=== PATIENT | male | born 1960 | race Caucasian/White ===

== ENCOUNTER 2023-03-18 07:12 | Outpatient (REF) | payer OTHER, SELFPAY | END 2023-03-18 07:13 | disposition home or self-care (01) | LOC: HO.WFDLDS 07:12 | PROVIDERS: Visit Provider Nurse Practitioner Family | DX: Z00.00 Encounter for general adult medical examination without abnormal findings (principal); M11.20 Other chondrocalcinosis, unspecified site; F10.10 Alcohol abuse, uncomplicated; I10 Essential (primary) hypertension; Z87.39 Personal history of other diseases of the musculoskeletal system and connective tissue; Z12.5 Encounter for screening for malignant neoplasm of prostate | CPT/HCPCS: 36415; 80053; 80061; 81001; 82043; 82607; 82728; 82746; 83540; 83735; 84153; 84207; 84443; 84550; 85025 ==

== ENCOUNTER 2023-03-30 08:51 | Outpatient (AMB) | payer OTHER, SELFPAY ==
[2023-03-30 08:55] VITALS: BP 122/80; PULSE 71; O2SAT 97; BMI 36.4
--- NOTE | 2023-03-30 08:55 | A.OFFPC_ITS ---
Vital Signs 03/30/23 08:55 Height 5 ft 7 in Weight 232 lb 8 oz BMI 36.4 BP 122/80 Blood Pressure Location Rt brachial Position Sitting Pulse 71 Pulse Source Pulse Oximeter Pulse Oximetry (%) 97 Oxygen Delivery Method Room Air Intake Visit Reasons: Extended exam with f/u labs and health maintenance Intake Note: Patient is here today for follow up exam and follow up labs. Patient states he is having gout pain in right knee and right ankle. Allergies No Known Allergies Allergy (Verified 03/30/23 08:57) Medication List - Last Reconciled 03/30/23 by Terrance Hollis MD amlodipine 10 mg PO DAILY lisinopril 10 mg PO DAILY 90 days metoprolol succinate ER 25 mg PO DAILY mirtazapine 15 mg PO BEDTIME 30 days naproxen 500 mg PO BID omeprazole 20 mg PO DAILY prednisone 20 mg PO BID [stool softener and stimulant PO] trazodone 150 mg (1.5 x 100 mg) PO BEDTIME 30 days Tobacco use date assessed: 03/30/23 Dental Screening Dental Screen Date: 03/30/23 Did you have a dental visit in the last 12 months?: Yes Did you have a dental problem in the last 6 months where you did not have access to dental care?: No Was dental information given to patient?: No HPI Extended exam with f/u labs and health maintenance HPI Details 62 y/o male presents for an extended exam with f/u labs and health maintenance. Labs were drawn 03/18/23. Reviewed labs with pt. Elevated fasting glucose of 108. Uric acid elevated at 11.8 - was found to have pseudogout. He has been using naproxen for relief twice a day. Elevated liver enzymes - AST 57 and ALT 69. Triglycerides 145. TC 208. LDL 133. HDL 46. He continues to drink every other day. He drinks about a pint of vodka. Desire heard - he states he had a myocardial perfusion done less than a year ago and work-up was fine. [facility] Medical History Gout High blood pressure Family History Sister Substance abuse Social History Housing: Apartment Patient Tobacco Use Status: Former Tobacco user Cigarettes Per Day: 20 Years Smoked: 15 e-Cigarette/Vaping Use: Never Used service: No Current occupational status: disabled Cognitive needs: No Hearing needs: No Vision needs: No Review of Systems Const Denies chills, Denies fatigue, Denies fever(s), Denies headache(s) and Denies weakness Eyes Denies change in vision ENT Denies dizziness, Denies headache(s), Denies hearing loss, Denies nasal congestion, Denies sinus pain, Denies sinus pressure and Denies sore throat Card Denies chest pain, Denies lightheadedness, Denies dyspnea and Denies other (palpitations) Resp Denies cough, Denies dyspnea and Denies wheezing GI Denies abdominal pain, Denies melena, Denies hematochezia, Denies change in b owel habits, Denies dyspepsia and Denies nausea Denies hematuria and Denies dysuria Musc Denies abnormal gait, Denies myalgias, Denies arthralgias, Denies numbness and Denies tingling Skin/Breast Denies rash, Denies unusual bruising and Denies wounds Neuro Denies abnormal gait, Denies dizziness, Denies headache(s), Denies memory loss, Denies numbness, Denies Sensory deficit (Neuro), Denies tingling and Denies weakness Psych Denies anxiety, Denies depression and Denies memory loss Endo Denies cold intolerance, Denies fatigue, Denies heat intolerance, Denies polydipsia and Denies polyuria Gigi/Lymph Denies easy bleeding and Denies easy bruising Aller/Immun Denies wheezing Physical exam (Primary Care) Vital Signs: Last Vital Signs Pulse 71 03/30/23 08:55 BP 122/80 03/30/23 08:55 Pulse Ox 97 03/30/23 08:55 Oxygen Delivery Method Room Air 03/30/23 08:55 BMI result Body Mass Index 36.4 Tobacco/Smoking Status: Tobacco use Status Tobacco use date assessed 03/30/23 03/30/23 09:02 Patient Tobacco Use Status Former Tobacco user 03/30/23 08:57 e-Cigarette/Vaping Use Never Used 03/30/23 08:57 Const General: no acute distress, well developed, alert and awake Nutritional Appearance: well nourished Orientation/consciousness: patient oriented x3 [facility] Head: Yes normocephalic and Yes atraumatic Ears: hearing grossly normal bilaterally and TM's normal bilaterally General nose exam: Normal external nose present and Normal nares present Mouth: Normal oral and palatal mucosa present and moist mucous membranes Teeth and gingiva: dentition normal Throat: Yes posterior oropharynx normal Eyes General: appearance normal, both eyes and all related structures Pupils: Equal, round and reactive pupils present and Pupil accommodation reflex normal EOM: EOMs intact bilaterally Neck Neck: Yes normal visual inspection, Yes no lymphadenopathy and Yes trachea midline Thyroid: Thyroid normal Carotids: no bruits Lymphatic: no lymphadenopathy noted Chest Chest palpation & inspection: normal inspection of the chest Resp Effort & Inspection: normal respiratory effort Auscultation: clear to auscultation bilaterally Cardio Rate: regular rate Rhythm: abnormal rhythm (Bigeminy ) Heart sounds: S1 normal heart sound present, S2 normal heart sound present, no gallops, no murmurs and no rubs Bruits: no abdominal aortic bruits and no carotid bruits GI Palpation (GI): No Abdominal aortic bruit present, Soft to palpation, nontender, No hepatosplenomegaly present and No Rebound tenderness present Auscultation: normal bowel sounds General: Yes no CVA tenderness Back/Spine/Pelvis Back: no CVA tenderness Cervical Spine: cervical ROM normal and No Cervical spine tenderness Thoracic/Lumbar Spine: thoraco-lumbar ROM normal, No pain with thoraco-lumbar ROM, No thoracic spinal tenderness and No lumbar spinal tenderness Skin Lesions: no lesions Rashes: no rashes Trauma: no lacerations or abrasions Wounds: no wounds Nails: normal Neuro General: patient oriented x3 Cranial nerves: Yes Equal, round and reactive pupils present Cognition (Neuro): normal cognition Gait exam (Neuro): Normal gait present Motor exam (neuro): 5/5 motor strength present throughout Sensory Exam: No Sensory deficit (Neuro) Deep tendon reflexes (DTR's): Right patellar reflex intensity grade: 2+ and Left patellar reflex intensity grade: 2+ Extrem General: Yes normal to inspection and No edema Psych Appearance: grossly normal Affect: normal affect Attitude: cooperative Thought process: Normal thought process present Assessment and Plan Assessment & Plan (1) Elevated liver enzymes: Code(s): R74.8 - Abnormal levels of other serum enzymes Plan: Actively drinking. He also notes that he has a history of treated hepatitis-C. He also notes that he has a history of some cirrhosis. He will work on weaning down and stopping alcohol intake Will recheck liver enzymes in 6 weeks. Will discuss liver ultrasound (2) Elevated fasting glucose: Code(s): R73.01 - Impaired fasting glucose Plan: Mildly elevated fasting glucose Will follow-up with next lab draw (3) Abnormal heart rhythm: Code(s): I49.9 - Cardiac arrhythmia, unspecified Plan: Possible bigeminy or frequent PACs He will get a baseline EKG at the beginning of his next visit however, he notes that he has had a workup which included nuclear perfusion imaging only a year ago and was told that this imaging was fine. Arrhythmia likely secondary to his alcohol use. He is asymptomatic today. (4) Hypercholesterolemia: Code(s): E78.00 - Pure hypercholesterolemia, unspecified Plan: Mildly elevated LDL Encouraged weight loss and a diet lower in saturated fats and cholesterol Encouraged alcohol cessation (5) Pseudogout: Code(s): M11.20 - Other chondrocalcinosis, unspecified site Plan: Patient notes a history of pseudogout. However his uric acid level is 11.7. Starting him on a low dose of allopurinol Will follow-up at his next visit (6) Screening for colon cancer: Code(s): Z12.11 - Encounter for screening for malignant neoplasm of colon Plan: He thinks he will be due for colonoscopy in about a year. Request records (7) Alcohol use disorder: Code(s): F10.90 - Alcohol use, unspecified, uncomplicated Plan: Ongoing alcohol use disorder I again offered addiction medicine referral but patient still wants to try to wean down and stop on his own. Will give him small prescription of clonidine and recommended he wean carefully Will follow (8) Screening for prostate cancer: Code(s): Z12.5 - Encounter for screening for malignant neoplasm of prostate Plan: PSA was within normal limits (9) Adult general medical exam: Code(s): Z00.00 - Encounter for general adult medical examination without abnormal findings Plan: 62-year-old male presents for an extended exam Stable today Medications: New clonidine HCl 0.1 mg PO BID 30 days PRN 60 tabs 1RF alcohol withdrawal symptoms allopurinol 100 mg PO BID 30 days 60 tabs 1RF prednisone 40 mg (2 x 20 mg) PO DAILY 4 days 8 tabs 0RF Coding Level of Care Code Est Pt Level 4 (74438) Diagnoses Elevated liver enzymes R74.8 Elevated fasting glucose R73.01 Abnormal heart rhythm I49.9 Hypercholesterolemia E78.00 Pseudogout M11.20 Screening for colon cancer Z12.11 Alcohol use disorder F10.90 Screening for prostate cancer Z12.5 Adult general medical exam Z00.00
== END 2023-03-30 09:45 | disposition home or self-care (01) ==
PROVIDERS: Visit Provider Family Medicine
DX: R74.8 Abnormal levels of other serum enzymes (principal); R73.01 Impaired fasting glucose; I49.9 Cardiac arrhythmia, unspecified; E78.00 Pure hypercholesterolemia, unspecified; M11.20 Other chondrocalcinosis, unspecified site; Z12.11 Encounter for screening for malignant neoplasm of colon; F10.90 Alcohol use, unspecified, uncomplicated; Z12.5 Encounter for screening for malignant neoplasm of prostate; Z00.00 Encounter for general adult medical examination without abnormal findings
CPT/HCPCS: 99214

== ENCOUNTER 2023-05-13 08:23 | Outpatient (AMB) | payer OTHER, SELFPAY ==
--- NOTE | 2023-05-13 08:30 | A.OFFPC_ITS ---
Vital Signs 05/13/23 08:31 Height 5 ft 7 in Weight 229 lb 6 oz BMI 35.9 BP 142/82 H Blood Pressure Location Lt brachial Position Sitting Respiration 12 Pulse 65 Pulse Source Pulse Oximeter Temp 97.9 F Temp Source Temporal Artery Scan Pulse Oximetry (%) 97 Oxygen Delivery Method Room Air Intake Visit Reasons: f/u elevated liver enzymes and uric acid levels Intake Note: Patient states that he has a fluid built up in his elbow and shoulder and believes it is gout. Mail Delivery Supervisor Required: No Accompanied by: Self / Same As Patient Allergies bee sting Allergy (Intermediate, Uncoded 05/13/23 08:36) Swelling Tobacco use date assessed: 03/30/23 Dental Screening Dental Screen Date: 05/13/23 Did you have a dental visit in the last 12 months?: Yes Did you have a dental problem in the last 6 months where you did not have access to dental care?: No Was dental information given to patient?: Patient has dentist HPI f/u elevated liver enzymes and uric acid levels HPI Details Patient was scheduled to follow-up elevated liver enzymes and uric acid levels. He has not gotten his labs done. At his last visit we discussed starting him on allopurinol. He also has an abnormal rhythm which he has been told about for many years. Possible bigeminy or frequent PACs. Drinks daily and this may be a direct cause or contributor of his arrhythmia. Patient can stay for a baseline EKG today. Blood pressure is mildly elevated above goal of less than 140/90. He takes lisinopril 10 mg daily, metoprolol ER 25 mg daily and also has clonidine 0.1 mg twice a day. Elevated liver enzymes and history of treated hep C with some cirrhosis. Has not gotten his labs drawn yet. Still drinking daily. Had given him prednisone and allopurinol for his gout - he reports ongoing joint pain and reports shoulder pain when he sleeps. [facility] Medical History (Updated 05/13/23 @ 09:20 by Terrance Hollis MD) Gout High blood pressure Surgical History (Updated 05/13/23 @ 08:39 by Charlette Smith MA) No pertinent past surgical history Family History Sister Substance abuse Brother Cardiovascular disorder Social History (Reviewed 05/13/23 @ 08:39 by FRED Martini Housing: Apartment Patient Tobacco Use Status: Former Tobacco user Cigarettes Per Day: 20 Years Smoked: 15 e-Cigarette/Vaping Use: Never Used service: No Current occupational status: disabled Cognitive needs: No Hearing needs: No Vision needs: No Review of Systems Const Denies chills, Denies fatigue, Denies fever(s), Denies headache(s) and Denies weakness ENT Denies dizziness and Denies headache(s) Card Denies dyspnea Resp Denies cough, Denies dyspnea, Denies wheezing and Denies other (shortness of breath) Musc Denies numbness and Denies tingling Neuro Denies dizziness, Denies headache(s), Denies numbness, Denies tingling and Denies weakness Psych Denies anxiety and Denies depression Endo Denies fatigue Aller/Immun Denies wheezing Physical exam (Primary Care) Vital Signs: Last Vital Signs Temp 97.9 F 05/13/23 08:31 Pulse 65 05/13/23 08:31 Resp 12 05/13/23 08:31 BP 142/82 H 05/13/23 08:31 Pulse Ox 97 05/13/23 08:31 Oxygen Delivery Method Room Air 05/13/23 08:31 BMI result Body Mass Index 35.9 Tobacco/Smoking Status: Tobacco use Status Tobacco use date assessed 03/30/23 05/13/23 08:33 Patient Tobacco Use Status Former Tobacco user 05/13/23 08:33 e-Cigarette/Vaping Use Never Used 05/13/23 08:33 Const General: well developed; No acute distress Nutritional Appearance: obese Orientation/consciousness: patient oriented x3 [facility] Head: Yes normocephalic and Yes atraumatic Eyes General: appearance normal, both eyes and all related structures Pupils: Equal, round and reactive pupils present EOM: EOMs intact bilaterally Resp Effort & Inspection: normal respiratory effort Neuro General: patient oriented x3 and gait normal Cranial nerves: Yes Equal, round and reactive pupils present Psych Affect: normal affect Assessment and Plan Assessment & Plan (1) High blood pressure: Code(s): I10 - Essential (primary) hypertension Plan: Blood pressure mildly elevated above goal of less than 140/90 For now, he will continue lisinopril and metoprolol and amlodipine. Likely secondary to discomfort and also weaning alcohol If still elevated at his next visit, will increase his lisinopril (2) History of gout: Code(s): Z87.39 - Personal history of other diseases of the musculoskeletal system and connective tissue Plan: Left shoulder and elbow pain Uric acid levels have been high. Will check an x-ray Prednisone had helped at his last visit so will give him a taper Continue allopurinol. We will follow-up on his uric acid levels which he had drawn today. (3) Elevated liver enzymes: Code(s): R74.8 - Abnormal levels of other serum enzymes Plan: History of elevated liver enzymes and alcohol abuse with cirrhosis. History of hepatitis C which was treated. Checking liver enzymes today. He is working on weaning down his alcohol use (4) Alcohol use disorder: Code(s): F10.90 - Alcohol use, unspecified, uncomplicated Plan: Has decreased his alcohol intake and is drinking about 3 times a week. Clonidine is helping Continue to wean down alcohol use. (5) Abnormal heart rhythm: Code(s): I49.9 - Cardiac arrhythmia, unspecified Plan: Baseline EKG shows a sinus rhythm with frequent PVCs; ventricular bigeminy pattern. Normal axis, no hypertrophy and no ST-T-wave changes. Patient is asymptomatic Will continue to monitor (6) Shoulder pain: Code(s): M25.519 - Pain in unspecified shoulder Plan: Possibly secondary to gouty arthritis or osteoarthritis Checking x-rays Prednisone taper will help Orders: Orders XR elbow LT 2V Today M25.522 - Pain in left elbow XR shoulder LT min 2V Today M25.519 - Pain in unspecified shoulder Medications: New prednisone 4 tabs daily for 4 days, 3 tabs daily for 2 days, 2 tabs daily for 2 days, 1 tab daily for 2 days PO daily; 28 tabs 0RF 10 days Coding Level of Care Code Est Pt Level 4 (39320) Diagnoses High blood pressure I10 History of gout Z87.39 Elevated liver enzymes R74.8 Alcohol use disorder F10.90 Abnormal heart rhythm I49.9 Shoulder pain M25.519
[2023-05-13 08:31] VITALS: BP 142/82; PULSE 65; RESP 12; TEMP 36.6; O2SAT 97; BMI 35.9
== END 2023-05-13 09:26 | disposition home or self-care (01) ==
PROVIDERS: PCP Family Medicine; Visit Provider Family Medicine
DX: I10 Essential (primary) hypertension (principal); Z87.39 Personal history of other diseases of the musculoskeletal system and connective tissue; R74.8 Abnormal levels of other serum enzymes; F10.90 Alcohol use, unspecified, uncomplicated; I49.9 Cardiac arrhythmia, unspecified; M25.519 Pain in unspecified shoulder
CPT/HCPCS: 99214

== ENCOUNTER 2023-05-13 08:52 | Outpatient (REF) | payer OTHER, SELFPAY ==
[2023-05-13 12:27] LABS: Alanine Aminotransferase 66 U/L (0-40); Albumin Level 4.5 g/dL (3.5-5.0); Alkaline Phosphatase 81 U/L (39-117); Anion Gap 14 (12-20); Aspartate Amino Transferase 64 U/L (5-37); Bilirubin Total 0.6 mg/dL (0.0-1.0); Blood Urea Nitrogen 18 mg/dL (9-16); Carbon Dioxide 22 mmol/L (22-29); Chloride 105 mmol/L (96-108); Estimated Glomerular Filt Rate > 60; Glucose Fasting 105 mg/dL (60-99); Potassium 4.4 mmol/L (3.3-5.1); Sodium 137 mmol/L (135-145); Total Protein 7.5 g/dL (6.5-8.0); Uric Acid 6.7 mg/dL (3.4-7.0)
[2023-05-13 12:41] LABS: Appearance Urine Clear; Color Urine Yellow; Glucose Urine UA Negative (Negative); Leukocyte Esterase Urine Negative (Negative); Nitrite Urine Negative (Negative); PH 5.5 (5.0-9.0); Specific Gravity - Urine 1.025 (1.005-1.025); UMIC TRIGGER UA YES; Urine Blood Trace (Negative); Urine Ketones Negative (Negative); Urine Protein Negative (Neg-Trace)
[2023-05-13 12:44] LABS: Bacteria Urine None Seen (None Seen); Hyaline Casts Urine 0-2 /LPF (0-2); RBC Urine 0-2 /HPF (0-2); Squamous Epithelial Cell Urine 0-2 /HPF (0-2); WBC Urine 0-5 /HPF (0-5)
== END 2023-05-13 08:53 | disposition home or self-care (01) ==
LOC: HO.WFDLDS 08:52
PROVIDERS: Visit Provider Family Medicine
DX: Z00.00 Encounter for general adult medical examination without abnormal findings (principal); R74.8 Abnormal levels of other serum enzymes; E79.0 Hyperuricemia without signs of inflammatory arthritis and tophaceous disease
CPT/HCPCS: 36415; 80053; 81001; 84550

== ENCOUNTER 2023-06-11 14:19 | Outpatient (AMB) | payer OTHER, SELFPAY ==
--- NOTE | 2023-06-11 14:06 | MHC.PC.OV ---
Intake Visit Reasons: f/u labs [phone] Intake Note: Patient reports he will go over labs and discuss shoulder pain at this telehealth visit. Customer Operations Intern Required: No Accompanied by: Self / Same As Patient Allergies bee sting Allergy (Intermediate, Uncoded 05/13/23 08:36) Swelling Tobacco use date assessed: 03/30/23 HPI f/u labs [phone] HPI Details Telemedicine?encounter?to?discuss liver?enzymes?and?uric?acid?levels?as?well?as?recent?gout?flare?up?and?elbow?bursitis. Patient?had?pain?at?left?elbow?and?shoulder?and?history?of?gout.??Uric?acid?levels?had?been?up?around?.8. Gave?him?a?script?for?prednisone?taper?and?also?allopurinol. Patient?notes?that?joint?pains?an?elbow?bursitis?both?improved?with?prednisone?taper. He?has?been?taking?allopurinol?without?any?problems?and?has?had?no?further?flare-ups. He?also?had?elevated?liver?enzymes?and?these?were?repeated?on?April?.? No?significant?change?in?his?liver?enzymes?between?March?and?late?April. ?He?has?stopped?drinking?since?then. He?also?has?a?history?of?hepatitis?C?infection?which?was?treated. [facility] Medical History (Updated 06/11/23 @ 16:09 by Terrance Hollis MD) Gout High blood pressure Surgical History (Updated 05/13/23 @ 08:39 by Charlette Smith MA) No pertinent past surgical history Family History Sister Substance abuse Brother Cardiovascular disorder Social History Housing: Apartment Patient Tobacco Use Status: Former Tobacco user Cigarettes Per Day: 20 Years Smoked: 15 e-Cigarette/Vaping Use: Never Used service: No Current occupational status: disabled Cognitive needs: No Hearing needs: No Vision needs: No Review of Systems Const Denies chills, Denies fatigue, Denies fever(s), Denies headache(s) and Denies weakness ENT Denies dizziness and Denies headache(s) Card Denies chest pain, Denies lightheadedness, Denies dyspnea and Denies other (Palpitations) Resp Denies cough, Denies dyspnea, Denies wheezing and Denies other ( shortness of breath) Musc Denies numbness and Denies tingling Neuro Denies dizziness, Denies headache(s), Denies numbness, Denies tingling, Denies paresthesias and Denies weakness Psych Denies anxiety and Denies depression Endo Denies fatigue Aller/Immun Denies wheezing Physical exam (Primary Care) Tobacco/Smoking Status: Tobacco use Status Tobacco use date assessed 03/30/23 06/11/23 14:09 Patient Tobacco Use Status Former Tobacco user 06/11/23 14:09 e-Cigarette/Vaping Use Never Used 06/11/23 14:09 Const Other: Telemedicine?encounter.??Audio?only.??No?exam. Telehealth Telehealth Location of provider rendering services: practice address Location of patient: address on file Patient Identification confirmed using: Name, : Yes Telehealth method: voice only Patient verbally consented to treatment: Yes Patient verbally consented to billing insurance company: Yes Patient informed of any privacy concerns related to visit: Yes Minutes spent on Phone/Video with Pt.: 6 Assessment and Plan Assessment & Plan (1) History of gout: Code(s): Z87.39 - Personal history of other diseases of the musculoskeletal system and connective tissue Plan: History?of?gout?and?left?shoulder?and?elbow?pain. No?flare-ups?since?starting?allopurinol?and?this?was?greatly?improved?initially?with?a?prednisone?taper. Uric?acid?level?dropped?from?11.8?down?to?6.7. Continue?allopurinol.??We?can?follow?uric?acid?level?as?well?as?clinically. Avoid?alcohol. (2) ETOH abuse: Code(s): F10.10 - Alcohol abuse, uncomplicated Plan: Patient?notes?that?he?is?no?longer?drinking. Encouraged?him?to?stay?connected?with?good?support;?friends,?family?and?AA?meetings (3) Elbow pain, left: Code(s): M25.522 - Pain in left elbow Plan: Left?elbow?and?left?shoulder?pain.??Had?bursitis?which?improved?with?prednisone.??Likely?has?had?gout?as?well?and?these?were?improved?with?prednisone. No?flare-ups?since?stopping?alcohol?use?and?using?allopurinol. Continue?allopurinol (4) Left shoulder pain: Code(s): M25.512 - Pain in left shoulder Plan: As?above (5) Elevated liver enzymes: Code(s): R74.8 - Abnormal levels of other serum enzymes Plan: Elevated?liver?enzymes,?likely?due?to?alcohol?abuse.??Also?has?had?a?history?of?treated?hepatitis-C?and?no?longer?infected. Repeat?liver?enzymes?shows?no?significant?improvement. Check?ultrasound Orders: Orders Comprehensive Met. Panel Today R74.8 - Abnormal levels of other serum enzymes Uric Acid Today Z87.39 - Personal history of other diseases of the musculoskeletal system and connective tissue US abdomen vail w elastography Today R74.8 - Abnormal levels of other serum enzymes Coding Level of Care Code Tele Est Pt Level 2 (02052) Diagnoses History of gout Z87.39 ETOH abuse F10.10 Elbow pain, left M25.522 Left shoulder pain M25.512 Elevated liver enzymes R74.8
== END 2023-06-11 16:50 ==
LOC: HO.HMGFM 14:19
PROVIDERS: PCP Family Medicine; Visit Provider Family Medicine
DX: Z87.39 Personal history of other diseases of the musculoskeletal system and connective tissue (principal); F10.10 Alcohol abuse, uncomplicated; M25.522 Pain in left elbow; M25.512 Pain in left shoulder; R74.8 Abnormal levels of other serum enzymes
CPT/HCPCS: 99212

== ENCOUNTER 2023-08-26 08:39 | Outpatient (AMB) | payer OTHER, SELFPAY ==
--- NOTE | 2023-08-26 08:44 | A.OFFPC_ITS ---
Vital Signs 08/26/23 08:46 Height 5 ft 7 in Weight 234 lb 8 oz BMI 36.7 BP 132/72 Blood Pressure Location Lt brachial Position Sitting Respiration 13 Pulse 76 Pulse Source Pulse Oximeter Pulse Oximetry (%) 96 Oxygen Delivery Method Room Air Intake Visit Reasons: Liver F/U Intake Note: Patient is here to follow up regarding his liver enzymes. Patient states he had labs done the day of his last visit and was not aware he needed his labs done before todays appointment. Patient has his ultrasound scheduled for September 20, 2023 at 8:00AM. Patient reports he is drinking again 0.5-1 pint per day. Patient is inquiring about a shot that helps to curb cravings. Patient reports he was contacted regarding a colonoscopy and he was wondering if he was able to have an endoscopy completed at the same time. Patient reports he has this previously done. 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 Also f/u bigeminy rhythm. No recent labs to review for his liver enzymes. The ones drawn on May 13 had already been reviewed. Patient has his ultrasound scheduled for September 20, 2023 at 8:00AM. PFSH Medical History Gout High blood pressure Surgical History No pertinent past surgical history Family History Sister Substance abuse Brother Cardiovascular disorder Other Alcohol abuse Social History (Updated 08/26/23 @ 08:55 by Magalie Loyola CMA) Household Members: Spouse and Significant Other Housing: Apartment Alcohol intake: current Alcohol intake frequency: other Comment: 0.5-1 pint daily Patient Tobacco Use Status: Former Tobacco user Cigarettes Per Day: 20 Years Smoked: 15 e-Cigarette/Vaping Use: Never Used Substance Use Type: Marijuana service: No Current occupational status: disabled Sexual orientation: Unable to collect Gender identity: Unable to collect Cognitive needs: No Hearing needs: No Vision needs: No Questionnaire PHQ-9 Over the last 2 weeks, how often have you been bothered by any of the following problems? 1. Little interest or pleasure in doing things: several days 2. Feeling down, depressed, or hopeless: several days 3. Trouble falling or staying asleep, or sleeping too much: several days 4. Feeling tired or having little energy: several days 5. Poor appetite or overeating: not at all 6. Feeling bad about yourself - or that you are a failure or have let yourself or your family down: not at all 7. Trouble concentrating on things, such as reading the newspaper or watching television: several days 8. Moving or speaking so slowly that other people could have noticed. Or the opposite - being so fidgety or restless that you have been moving around a lot more than usual: not at all 9. Thoughts that you would be better off or of hurting yourself in some way: not at all Total score: 5 Depression Screening Interpretation: Negative Depression Screening Done: Yes 09277 - PHQ-9 Billing: Yes Source: Developed by Drs. Mark Brink, Deborah Block, Gordy Valencia and colleagues, with an educational soledad from [employer]. Thrive Questionnaire Date Thrive assessed: 08/26/23 I am a: Patient What is your living situation today?: I have a steady place to live Within the past 12 months, did the food you bought not last and you didn't have the money to get more?: Never true Within the past 12 months, did you worry whether your food would run out before you got money to buy more?: Never true Do you have trouble paying for medicines?: No Do you have trouble getting transportation to medical appointments?: No Do you have trouble paying your heating and electricity bill?: No Do you have trouble taking care of your child, family member or friend?: No Do you have trouble with day-to-day activities such as bathing, preparing meals, shopping, managing finances, etc.?: No Are you currently unemployed and looking for a job?: No Are you interested in more education?: No Please select the resources that you would like help with: None Currently or been in a relationship where the following occur: no concerns reported AUDIT C Alcohol Use Questionnaire (AUDIT-C) 1. How often do you have a drink containing alcohol?: 4 or more times a week 2. How many drinks containing alcohol do you have on a typical day when you are drinking?: 3 or 4 (0.5-1 pint daily ) Total Score: 5 NUNU-7 AMB Questionnaire NUNU-7 Date NUNU - 7 assessed: 08/26/23 Feeling nervous, anxious, or on edge: 0 = Not at all Not being able to stop or control worryin = Not at all Worrying too much about different things: 0 = Not at all Trouble relaxin = Not at all Being so restless that it is hard to sit still: 0 = Not at all Becoming easily annoyed or irritable: 0 = Not at all Feeling afraid as if something awful might happen: 0 = Not at all Total NUNU-7 score (0-4 normal; 5-9 mild; 10-14 moderate; 15-21 severe): 0 Source: Developed by Drs. Mark Brink, Deborah Block, Gordy Valencia and colleagues, with an educational soledad from [employer]. NUNU-7 Assessment Billing NUNU-7 Assessment Tool: NUNU-7 Assessment 29196 Review of Systems Const Denies chills, Denies fatigue, Denies fever(s), Denies headache(s) and Denies weakness ENT Denies dizziness and Denies headache(s) Card Denies dyspnea Resp Denies cough, Denies dyspnea, Denies wheezing and Denies other (shortness of breath) Musc Denies numbness and Denies tingling Neuro Denies dizziness, Denies headache(s), Denies numbness, Denies tingling and Denies weakness Psych Denies anxiety and Denies depression Endo Denies fatigue Aller/Immun Denies wheezing Physical exam (Primary Care) Vital Signs: Last Vital Signs Pulse 76 08/26/23 08:46 Resp 13 08/26/23 08:46 BP 132/72 08/26/23 08:46 Pulse Ox 96 08/26/23 08:46 Oxygen Delivery Method Room Air 08/26/23 08:46 BMI result Body Mass Index 36.7 Tobacco/Smoking Status: Tobacco use Status Tobacco use date assessed 03/30/23 08/26/23 08:45 Patient Tobacco Use Status Former Tobacco user 08/26/23 08:55 e-Cigarette/Vaping Use Never Used 08/26/23 08:55 PHQ-9: PHQ-9 Score PHQ-9: Total score 5 08/26/23 09:22 Depression Screening Interpretation: Negative Thrive Assessment: Date of Thrive Assessment Date Thrive assessed 08/26/23 08/26/23 09:00 Currently or been in a relationship where the following occur: no concerns reported Const General: well developed; No acute distress Nutritional Appearance: well nourished Orientation/consciousness: patient oriented x3 HENMT Head: Yes normocephalic and Yes atraumatic Eyes General: appearance normal, both eyes and all related structures Pupils: Equal, round and reactive pupils present EOM: EOMs intact bilaterally Resp Effort & Inspection: normal respiratory effort Neuro General: patient oriented x3 and gait normal Cranial nerves: Yes Equal, round and reactive pupils present Psych Affect: normal affect Assessment and Plan Assessment & Plan (1) Alcohol use disorder: Code(s): F10.90 - Alcohol use, unspecified, uncomplicated Plan: Patient?has?resumed?drinking. Agrees?to?a?referral?at?the?[facility];?addiction?medicine. Also?encouraged?resuming?AA?meetings (2) Elevated liver enzymes: Code(s): R74.8 - Abnormal levels of other serum enzymes Plan: Has?had?elevated?liver?enzymes?and?I?had?ordered?a?liver?ultrasound.??This?is?sc heduled?for?September He?will?get?liver?enzymes?repeated?today. As?above,?encouraged?alcohol?abstinence?and?referred?him?to?addiction?medicine (3) Abnormal heart rhythm: Code(s): I49.9 - Cardiac arrhythmia, unspecified Plan: Stable Encouraged?alcohol?cessation Orders: Referrals Addiction Medicine Referral F10.90 - Alcohol use, unspecified, uncomplicated Coding Level of Care Code Est Pt Level 4 (85013) Diagnoses Alcohol use disorder F10.90 Elevated liver enzymes R74.8 Abnormal heart rhythm I49.9 Additional Codes NUNU-7 Assessment Billing - NUNU-7 Assessment Tool: NUNU-7 Assessment [id number] ([id number])
[2023-08-26 08:46] VITALS: BP 132/72; PULSE 76; RESP 13; O2SAT 96; BMI 36.7
== END 2023-08-26 09:40 | disposition home or self-care (01) ==
PROVIDERS: PCP Family Medicine; Visit Provider Family Medicine
DX: R74.8 Abnormal levels of other serum enzymes (principal); F10.90 Alcohol use, unspecified, uncomplicated; I49.9 Cardiac arrhythmia, unspecified
CPT/HCPCS: 99214

== ENCOUNTER 2023-08-26 09:41 | Outpatient (REF) | payer OTHER, SELFPAY ==
[2023-08-26 12:06] LABS: Alanine Aminotransferase 101 U/L (0-40); Albumin Level 4.5 g/dL (3.5-5.0); Alkaline Phosphatase 84 U/L (39-117); Anion Gap 15 (12-20); Aspartate Amino Transferase 118 U/L (5-37); Bilirubin Total 0.7 mg/dL (0.0-1.0); Blood Urea Nitrogen 20 mg/dL (9-16); Calcium 9.8 mg/dL (8.4-10.2); Carbon Dioxide 22 mmol/L (22-29); Chloride 104 mmol/L (96-108); Estimated Glomerular Filt Rate > 60; Glucose Random 105 mg/dL (60-115); Potassium 4.1 mmol/L (3.3-5.1); Sodium 137 mmol/L (135-145); Total Protein 7.8 g/dL (6.5-8.0); Uric Acid 6.6 mg/dL (3.4-7.0)
== END 2023-08-26 09:42 | disposition home or self-care (01) ==
LOC: HO.WFDLDS 09:41
PROVIDERS: Visit Provider Family Medicine
DX: R74.8 Abnormal levels of other serum enzymes (principal); Z87.39 Personal history of other diseases of the musculoskeletal system and connective tissue
CPT/HCPCS: 36415; 80053; 84550

== ENCOUNTER 2023-09-20 07:51 | Outpatient (REF) | payer OTHER, SELFPAY ==
--- NOTE | ~2023-09-20 | US_ITS ---
EXAMINATION: US ABDOMEN LIMITED WITH LIVER ELASTOGRAPHY CLINICAL INFORMATION: Abnormal serum enzymes. COMPARISON: None available. TECHNIQUE: Real-time imaging of the abdominal viscera. Noninvasive ultrasound liver fibrosis assessment is performed using Pallavi ElastPQ point quantification shear wave elastography (2D-SWE) with a C5-2 MHz transducer. Multiple elastography samples are obtained. FINDINGS: PANCREAS: Normal. The visualized pancreatic head and body are normal in appearance. The remainder of the pancreas is obscured from visualization by the overlying bowel gas. LIVER: The liver demonstrates normal contour and increased echogenicity. No focal lesion or intrahepatic biliary duct dilatation. The right lobe measures 18.7 cm in length. The left lobe measures 12.3 cm in length. Portal flow is towards the liver (hepatopetal). Shear wave liver elastography median stiffness is 1.90 m/s (reference: normal median stiffness is 1.3 m/s or less). IQR/median stiffness to assess sampling precision is 0.07 (reference: good quality data set is IQR/median stiffness of 0.15 or less). GALLBLADDER: There are multiple gallstones. The gallbladder is physiologically distended without evidence of sludge, polyps, wall thickening or pericholecystic fluid. COMMON BILE DUCT: Normal in caliber measuring 0.6 cm in diameter. RIGHT KIDNEY: Normal. No hydronephrosis. No renal calculi or focal parenchymal lesions. The kidney measures 10.4 cm in maximum dimension. FREE FLUID: None. US/US abdomen vail w elastography IMPRESSION: 1. There is generalized increase in hepatic echotexture, consistent with fatty infiltration or hepatocellular disease. Please correlate clinically. No focal hepatic mass or intrahepatic biliary dilatation is seen. 2. There is hepatomegaly. 3. Liver elastography: Measurements are suggestive of compensated advanced chronic liver disease but need further test for confirmation. 4. Technically limited ultrasound examination of the pancreas. REFERENCE: Society of Radiologists in Ultrasound Liver Stiffness Thresholds (2020): LIVER STIFFNESS THRESHOLDS: *Liver Stiffness equal or less than 1.3 m/s: High probability of being normal. *Liver Stiffness less than 1.7 m/s: In the absence of other known clinical signs, rules out compensated advanced chronic liver disease. *Liver Stiffness 1.7-2.1 m/s: Suggestive of compensated advanced chronic liver disease but need further test for confirmation. *Liver Stiffness over 2.1 m/s: Rules in compensated advanced chronic liver disease. *Liver Stiffness over 2.4 m/s: Suggestive of clinically significant portal hypertension. QUALITY OF DATA SET: *IQR/Median value equal or less than 0.15 implies a quality data set. *IQR/Median value over 0.15 implies a poor quality data set. SIGNIFICANT CHANGE FROM PRIOR EXAM: Significant change if liver stiffness measurement is 10% or greater from prior exam. OTHER CONSIDERATIONS: The stage of liver fibrosis may be overestimated in the setting of acute hepatitis, liver inflammation, elevated liver function tests, hepatic vascular congestion, obstructive cholestasis, non-fasting state, and infiltrative diseases such as amyloidosis and lymphoma. In some patients with NAFLD, the liver stiffness thresholds for compensated advanced chronic liver disease may be lower. In causes other than viral hepatitis and NAFLD, liver stiffness thresholds are not well established.
== END 2023-09-20 07:52 | disposition home or self-care (01) ==
LOC: HO.US 07:51
PROVIDERS: PCP Family Medicine; Visit Provider Family Medicine
DX: R74.8 Abnormal levels of other serum enzymes (principal)
CPT/HCPCS: 76705; 76981

== ENCOUNTER 2023-12-07 08:32 | Outpatient (AMB) | payer OTHER, SELFPAY ==
--- NOTE | 2023-12-07 08:44 | MHC.PC.OV ---
Vital Signs 12/07/23 08:46 Height 5 ft 7 in Weight 234 lb BMI 36.6 BP 138/70 Blood Pressure Location Rt brachial Position Sitting Respiration 14 Pulse 68 Pulse Source Pulse Oximeter Pulse Oximetry (%) 98 Oxygen Delivery Method Room Air Intake Visit Reasons: Follow up labs Intake Note: Patient is here for a follow up. Patient reports he needs refills of the following medications: lisinopril amlodipine omeprazole mertazepine naproxen [employer] Consultant Required: No Accompanied by: Self / Same As Patient Allergies bee sting Allergy (Intermediate, Uncoded 12/07/23 08:52) Swelling Tobacco use date assessed: 12/07/23 Fall risk assessment: No Falls in past year Last assessed Fall Risk: 12/07/23 Dental Screening Dental Screen Date: 12/07/23 Did you have a dental visit in the last 12 months?: Yes Did you have a dental problem in the last 6 months where you did not have access to dental care?: No Was dental information given to patient?: Patient has dentist HPI Follow up labs HPI Details 63 y/o male presents to review elevated liver enzymes and liver ultrasound, Had resumed drinking but agreed to referral to addiction medicine. Labs were drawn 08/26/23. Reviewed labs with pt. Worsening liver enzymes - AST 118, ALT 101. Liver ultrasound 09/20/23 showed generalized increase in hepatic echotexture, consistent with fatty infiltration or hepatocellular disease. Hepatomegaly. Pt reports he continues to drink 3-4x a week. He has not visited the addiction medicine clinic yet. Has complaints of a rash on his arms and on his lips. [facility] Medical History Gout High blood pressure Surgical History No pertinent past surgical history Family History (Updated 12/07/23 @ 08:53 by Magalie Loyola CMA) Sister Substance abuse Mental health disorder Brother Cardiovascular disorder Mental health disorder Other Alcohol abuse Social History Household Members: Spouse and Significant Other Housing: Apartment Alcohol intake: current Alcohol intake frequency: other Comment: 0.5-1 pint daily Patient Tobacco Use Status: Former Tobacco user Cigarettes Per Day: 20 Years Smoked: 15 e-Cigarette/Vaping Use: Never Used Substance Use Type: Marijuana service: No Current occupational status: disabled Sexual orientation: Unable to collect Gender identity: Unable to collect Cognitive needs: No Hearing needs: No Vision needs: No Questionnaire PHQ-9 Over the last 2 weeks, how often have you been bothered by any of the following problems? 1. Little interest or pleasure in doing things: not at all 2. Feeling down, depressed, or hopeless: not at all 3. Trouble falling or staying asleep, or sleeping too much: not at all 4. Feeling tired or having little energy: several days 5. Poor appetite or overeating: not at all 6. Feeling bad about yourself - or that you are a failure or have let yourself or your family down: not at all 7. Trouble concentrating on things, such as reading the newspaper or watching television: not at all 8. Moving or speaking so slowly that other people could have noticed. Or the opposite - being so fidgety or restless that you have been moving around a lot more than usual: not at all 9. Thoughts that you would be better off or of hurting yourself in some way: not at all Total score: 1 Source: Developed by Drs. Mark Brink, Deborah Block, Gordy Valencia and colleagues, with an educational soledad from [employer] Thrive Questionnaire Date Thrive assessed: 08/26/23 AUDIT C Alcohol Use Questionnaire (AUDIT-C) 1. How often do you have a drink containing alcohol?: 4 or more times a week 2. How many drinks containing alcohol do you have on a typical day when you are drinking?: 1 or 2 3. How often do you have six or more drinks on one occasion?: Never Total Score: 4 NUNU-7 AMB Questionnaire NUNU-7 Date NUNU - 7 assessed: 12/07/23 Feeling nervous, anxious, or on edge: 0 = Not at all Not being able to stop or control worryin = Not at all Worrying too much about different things: 0 = Not at all Trouble relaxin = Not at all Being so restless that it is hard to sit still: 0 = Not at all Becoming easily annoyed or irritable: 0 = Not at all Feeling afraid as if something awful might happen: 0 = Not at all Total NUNU-7 score (0-4 normal; 5-9 mild; 10-14 moderate; 15-21 severe): 0 Source: Developed by Drs. Mark Brink, Deborah Block, Gordy Valencia and colleagues, with an educational soledad from [employer] ([employer] Review of Systems Const Denies chills, Denies fatigue, Denies fever(s), Denies headache(s) and Denies weakness ENT Denies dizziness and Denies headache(s) Card Denies chest pain, Denies lightheadedness, Denies dyspnea and Denies other (Palpitations) Resp Denies cough, Denies dyspnea, Denies wheezing and Denies other ( shortness of breath) Musc Denies numbness and Denies tingling Skin/Breast Reports rash Neuro Denies dizziness, Denies headache(s), Denies numbness, Denies tingling, Denies paresthesias and Denies weakness Psych Denies anxiety and Denies depression Endo Denies fatigue Aller/Immun Denies wheezing Physical exam (Primary Care) Vital Signs: Last Vital Signs Pulse 68 12/07/23 08:46 Resp 14 12/07/23 08:46 BP 138/70 12/07/23 08:46 Pulse Ox 98 12/07/23 08:46 Oxygen Delivery Method Room Air 12/07/23 08:46 BMI result Body Mass Index 36.6 Tobacco/Smoking Status: Tobacco use Status Tobacco use date assessed 12/07/23 12/07/23 08:53 Patient Tobacco Use Status Former Tobacco user 12/07/23 08:53 e-Cigarette/Vaping Use Never Used 12/07/23 08:53 PHQ-9: PHQ-9 Score PHQ-9: Total score 1 12/07/23 09:13 Thrive Assessment: Date of Thrive Assessment Date Thrive assessed 08/26/23 12/07/23 08:53 Const General: no acute distress and well developed Nutritional Appearance: well nourished Orientation/consciousness: patient oriented x3 HENMT Head: Yes normocephalic and Yes atraumatic Eyes General: appearance normal, both eyes and all related structures Pupils: Equal, round and reactive pupils present EOM: EOMs intact bilaterally Resp Effort & Inspection: normal respiratory effort Auscultation: clear to auscultation bilaterally Cardio Rate: regular rate Rhythm: regular rhythm Heart sounds: S1 normal heart sound present, S2 normal heart sound present, no gallops, no murmurs and no rubs Skin Other: Rash on arm, purple, orthogonal, raised spots Rash around his lips Neuro General: patient oriented x3 and gait normal Cranial nerves: Yes Equal, round and reactive pupils present Psych Affect: normal affect Assessment and Plan Assessment & Plan (1) Elevated liver enzymes: Code(s): R74.8 - Abnormal levels of other serum enzymes Plan: Ultrasound?shows uggestive of compensated advanced chronic liver disease Referred?to?Gastroenterology Encouraged?alcohol?weaning?and?cessation Referred?to?[facility] - patient?has?reconsidered?referral?and?would?like?to?be?seen. 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 - will?give?him?triamcinolone Medications: New vitamin B complex 1 tab PO DAILY 30 days 30 tabs 2RF triamcinolone acetonide 0.5% 1 appl topical BID 30 grams 2RF 14 days Refilled lisinopril 10 mg PO DAILY 90 days 90 tabs 2RF mirtazapine 15 mg PO BEDTIME 30 days 30 tabs 2RF naproxen 500 mg PO BID 30 days PRN 30 tabs 3RF pain metoprolol succinate ER 25 mg PO DAILY 90 days 90 tabs 3RF amlodipine 10 mg PO DAILY 30 days 30 tabs 2RF omeprazole 20 mg PO DAILY 90 days 90 caps 2RF Coding Level of Care Code Est Pt Level 4 (26815) Diagnoses Elevated liver enzymes R74.8 Alcohol use disorder F10.90 Rash R21
[2023-12-07 08:46] VITALS: BP 138/70; PULSE 68; RESP 14; O2SAT 98; BMI 36.6
== END 2023-12-07 09:36 | disposition home or self-care (01) ==
PROVIDERS: PCP Family Medicine; Visit Provider Family Medicine
DX: R74.8 Abnormal levels of other serum enzymes (principal); F10.90 Alcohol use, unspecified, uncomplicated; R21 Rash and other nonspecific skin eruption
CPT/HCPCS: 99214

== ENCOUNTER 2024-02-22 08:05 | Outpatient (AMB) | payer OTHER, SELFPAY ==
--- NOTE | 2024-02-22 08:12 | MHC.OFFVIS ---
Vital Signs 02/22/24 08:18 Height 5 ft 7 in Weight 229 lb BMI 35.9 BP 156/73 H Blood Pressure Location Lt brachial Position Sitting Respiration 72 H Intake Visit Reasons: Colonoscopy/Endoscopy Screening Intake Note: Patient new consult for 2nd Colonoscopy and EGD Patient denies any GI issues for today. Chairman Ceo Required: No Accompanied by: Self / Same As Patient Allergies bee sting Allergy (Intermediate, Uncoded 12/07/23 08:52) Swelling HPI HPI Colonoscopy/Endoscopy Screening: Details: 63-year-old male here for a ?colonoscopy and upper endoscopy screening. ? He is referred by Terrance Hollis of [facility] primary care. PMX Abnormal heart rhythm Hypertension High cholesterol Alcohol use disorder Gout Shoulder pain Elbow pain GERD Constipation Depression Elevated LFTs * SURGICAL HISTORY Shoulder sruger with screws Arthroscopic knee left surgery * ALLERGIES:NKDA Bee stings-anaphylaxis * [place] LABS: Laboratory Tests 03/18/23 08/26/23 07:17 09:45 WBC 7.2 Hgb 15.6 Hct 44.3 Plt Count 186 Estimated GFR > 60 Total Bilirubin 0.7 AST 118 H ALT 101 H Alkaline Phosphatase 84 Laboratory Tests 05/13/23 08:53 Estimated GFR > 60 Total Bilirubin 0.6 AST 64 H ALT 66 H Alkaline Phosphatase 81 ULTRASOUND OF THE ABDOMEN WITH ELASTOGRAPHY 09/20/23 (F2-F3) FINDINGS: PANCREAS: Normal. The visualized pancreatic head and body are normal in appearance. The remainder of the pancreas is obscured from visualization by the overlying bowel gas. LIVER: The liver demonstrates normal contour and increased echogenicity. No focal lesion or intrahepatic biliary duct dilatation. The right lobe measures 18.7 cm in length. The left lobe measures 12.3 cm in length. Portal flow is towards the liver (hepatopetal). Shear wave liver elastography median stiffness is 1.90 m/s (reference: normal median stiffness is 1.3 m/s or less). IQR/median stiffness to assess sampling precision is 0.07 (reference: good quality data set is IQR/median stiffness of 0.15 or less). GALLBLADDER: There are multiple gallstones. The gallbladder is physiologically distended without evidence of sludge, polyps, wall thickening or pericholecystic fluid. COMMON BILE DUCT: Normal in caliber measuring 0.6 cm in diameter. RIGHT KIDNEY: Normal. No hydronephrosis. No renal calculi or focal parenchymal lesions. The kidney measures 10.4 cm in maximum dimension. FREE FLUID: None. US/US abdomen vail w elastography IMPRESSION: 1. There is generalized increase in hepatic echotexture, consistent with fatty infiltration or hepatocellular disease. Please correlate clinically. No focal hepatic mass or intrahepatic biliary dilatation is seen. 2. There is hepatomegaly. 3. Liver elastography: Measurements are suggestive of compensated advanced chronic liver disease but need further test for confirmation. 4. Technically limited ultrasound examination of the pancreas. TODAY'S VISIT THE PATIENT HAD A PRIOR COLONOSCOPY ABOUT 10 years ago that he says was normal. He thinks it was [facility] but I can not find anything in there database. I also look at the primary care note and realize the patient has alcoholic liver disease. This was not in the referral but it is going to be something we will have to investigate and treat. He has CIC but he will move his bowels with colace. He has also used gummy fiber pills. He has GERD well controlled with omeprazole. I note multiple bruising on his arms and he admits he bruises easily. I explained this is likely due to his alcoholic liver disease as this interferes with various clotting factors. He still drinks vodka a pint 4-5 week. I let him know that complete sobriety is likely the only way to see if his liver as he likely has an element of MARTIN on top of alcoholic liver disease to contend with. He has a history of hepatitis-C but this was successfully treated in the remote past. There are no prior problems with anesthesia or sedation. He has ventricular bigeminy on EKG that has not been evaluated by cardiology, he denies any respiratory problems. Hx of txed Hep C but no current ID problems. His father of pancreatic cancer but no FHX of CRC, polyps, or stomach/esophageal cancer. Return office visit in 8 weeks [facility] Medical History (Updated 02/22/24 @ 08:32 by BRE Salas) Gout High blood pressure Surgical History (Updated 02/22/24 @ 08:27 by Sharon Khan) History of left shoulder replacement Hx of left knee surgery History of esophagogastroduodenoscopy (EGD) Hx of colonoscopy No pertinent past surgical history Family History Sister Substance abuse Mental health disorder Brother Cardiovascular disorder Mental health disorder Other Alcohol abuse Social History Household Members: Spouse and Significant Other Housing: Apartment Alcohol intake: current Alcohol intake frequency: other Comment: 0.5-1 pint daily Patient Tobacco Use Status: Former Tobacco user Cigarettes Per Day: 20 Years Smoked: 15 e-Cigarette/Vaping Use: Never Used Substance Use Type: Marijuana service: No Current occupational status: disabled Sexual orientation: Unable to collect Gender identity: Unable to collect Cognitive needs: No Hearing needs: No Vision needs: No Review of Systems Const Denies fatigue, Denies fever(s), Denies night sweats, Denies poor appetite and Denies weight loss ENT Reports Normal hearing present, Denies dental pain, Denies dysphagia, Denies hearing loss, Denies mouth pain, Denies odynophagia, Denies throat swelling, Denies tongue swelling and Reports other (Dentition adequate) Card Reports irregular heart rhythm Resp Reports no additional complaints GI Details: Denies abdominal pain, Denies melena, Reports bloating, Denies hematochezia, Denies constipation, Denies GI cramping, Denies dysphagia, Denies excessive flatus, Denies early satiety, Denies heartburn, Denies diarrhea, Denies nausea, Denies odynophagia, Denies vomiting and Denies hematemesis Skin/Breast Denies pruritus, Denies lesions, Reports rash (eczematic over arms and legs and elbows) and Denies jaundice Neuro Reports Normal hearing present and Denies Abnormal speech present Psych Reports anxiety, Reports depression, Denies homicidal ideation and Denies suicidal ideation Endo Denies fatigue Gigi/Lymph Reports easy bruising Aller/Immun Denies throat swelling and Denies tongue swelling Physical Exam Vital Signs: Last Vital Signs Resp 72 H 02/22/24 08:18 BP 156/73 H 02/22/24 08:18 BMI result Body Mass Index 35.9 Const General: cooperative, no acute distress, well developed and well groomed Nutritional Appearance: well nourished and obese Orientation/consciousness: oriented to person, oriented to place and oriented to time Limitations: No language barrier HEENT Head: Yes normocephalic and Yes atraumatic Eyes General: appearance normal, both eyes and all related structures Pupils: Equal, round and reactive pupils present Neck Neck: Yes normal visual inspection, Yes no lymphadenopathy and Yes no JVD Thyroid: Thyroid normal Resp Effort & Inspection: normal respiratory effort and able to speak in complete sentences Auscultation: clear to auscultation bilaterally Cardio Rate: regular rate Rhythm: regular rhythm Heart sounds: Normal, physiologic split S2 sound present Peripheral pulses: radial pulses present and posterior tibial pulses present GI Other: Mild caput medusa Inspection: Yes distended, Yes Abdominal panniculus present and Yes obesity Palpation (GI): Soft to palpation, nontender, no guarding, not rigid and Hepatomegaly present (To about 4 fingers under the ribcage) Percussion: Yes normal to percussion Auscultation: normal bowel sounds Rectal Exam - Male: Yes deferred Skin General skin exam: no rashes or lesions noted, turgor normal, skin not dry, no jaundice, No spider nevi and no striae Rashes: no rashes Nails: normal Neuro General: oriented to person, oriented to place and oriented to time Cranial nerves: Yes Equal, round and reactive pupils present and Yes Normal hearing present Speech: No Abnormal speech present Extrem Other: Bruising on upper arms and legs in various stages of healing General: Yes normal to inspection, No clubbing, No cyanosis and Yes edema (Very mild pitting 3/[address] the shins) Psych Appearance: grossly normal and well kempt Mental Status: mental status grossly normal Speech and movement: Normal speech and movement present Affect: normal affect Attitude: cooperative Thought process: Normal thought process present and not confabulating Thought content: Normal thought content present Insight: Fair insight present (Psych) and Limited insight present (Psych) Judgement: Fair judgement present (Psych) and Limited judgement present (Psych) Assessment & Plan Assessment & Plan (1) ETOH abuse: Code(s): F10.10 - Alcohol abuse, uncomplicated Category: Social Hx (2) GERD (gastroesophageal reflux disease): Code(s): K21.9 - Gastro-esophageal reflux disease without esophagitis Category: Medical (3) Transaminitis: Comment: BASELINE LABS 03/18/2312/14/23 07:1709:45 WBC 7.2 Hgb 15.6 Hct 44.3 Plt Count 186 Estimated GFR > 60 Total Bilirubin 0.7 AST 118 H ALT 101 H Alkaline Phosphatase 84 05/13/23 08:53 Estimated GFR > 60 Total Bilirubin 0.6 AST 64 H ALT 66 H Alkaline Phosphatase 81 ULTRASOUND OF THE ABDOMEN WITH ELASTOGRAPHY 09/20/23 (F2-F3) CURRENT LABS ULTRASOUND OF THE ABDOMEN WITH ELASTOGRAPHY 09/20/23 (F2-F3) FINDINGS: PANCREAS: Normal. The visualized pancreatic head and body are normal in appearance. The remainder of the pancreas is obscured from visualization by the overlying bowel gas. LIVER: The liver demonstrates normal contour and increased echogenicity. No focal lesion or intrahepatic biliary duct dilatation. The right lobe measures 18.7 cm in length. The left lobe measures 12.3 cm in length. Portal flow is towards the liver (hepatopetal). Shear wave liver elastography median stiffness is 1.90 m/s (reference: normal median stiffness is 1.3 m/s or less). IQR/median stiffness to assess sampling precision is 0.07 (reference: good quality data set is IQR/median stiffness of 0.15 or less). GALLBLADDER: There are multiple gallstones. The gallbladder is physiologically distended without evidence of sludge, polyps, wall thickening or pericholecystic fluid. COMMON BILE DUCT: Normal in caliber measuring 0.6 cm in diameter. RIGHT KIDNEY: Normal. No hydronephrosis. No renal calculi or focal parenchymal lesions. The kidney measures 10.4 cm in maximum dimension. FREE FLUID: None. US/US abdomen vail w elastography IMPRESSION: 1. There is generalized increase in hepatic echotexture, consistent with fatty infiltration or hepatocellular disease. Please correlate clinically. No focal hepatic mass or intrahepatic biliary dilatation is seen. 2. There is hepatomegaly. 3. Liver elastography: Measurements are suggestive of compensated advanced chronic liver disease but need further test for confirmation. 4. Technically limited ultrasound examination of the pancreas. Code(s): R74.01 - Elevation of levels of liver transaminase levels Category: Medical (4) History of hepatitis C: Code(s): Z86.19 - Personal history of other infectious and parasitic diseases Category: Medical (5) Pre-op examination: Code(s): Z01.818 - Encounter for other preprocedural examination Category: Medical (6) Alcoholic liver disease: Code(s): K70.9 - Alcoholic liver disease, unspecified Category: Medical Plan THE PATIENT HAD A PRIOR COLONOSCOPY ABOUT 10 years ago that he says was normal. He thinks it was [facility] but I can not find anything in there database. I also look at the primary care note and realize the patient has alcoholic liver disease. This was not in the referral but it is going to be something we will have to investigate and treat. He has CIC but he will move his bowels with colace. He has also used gummy fiber pills. He has GERD well controlled with omeprazole. I note multiple bruising on his arms and he admits he bruises easily. I explained this is likely due to his alcoholic liver disease as this interferes with various clotting factors. He still drinks vodka a pint 4-5 week. I let him know that complete sobriety is likely the only way to see if his liver as he likely has an element of MARTIN on top of alcoholic liver disease to contend with. He has a history of hepatitis-C but this was successfully treated in the remote past. There are no prior problems with anesthesia or sedation. He has ventricular bigeminy on EKG that has not been evaluated by cardiology, he denies any respiratory problems. Hx of txed Hep C but no current ID problems. His father of pancreatic cancer but no FHX of CRC, polyps, or stomach/esophageal cancer. Return office visit in 8 weeks Orders: Orders Complete Blood Count Auto Diff Today R74.01 - Elevation of levels of liver transaminase levels, Z01.818 - Encounter for other preprocedural examination, Z86.19 - Personal history of other infectious and parasitic diseases Alpha Fetoprotein Today R74.01 - Elevation of levels of liver transaminase levels, Z01.818 - Encounter for other preprocedural examination, Z86.19 - Personal history of other infectious and parasitic diseases Ammonia Today R74.01 - Elevation of levels of liver transaminase levels, Z01.818 - Encounter for other preprocedural examination, Z86.19 - Personal history of other infectious and parasitic diseases LEO Reflex Titer and Pattern Today R74.01 - Elevation of levels of liver transaminase levels, Z01.818 - Encounter for other preprocedural examination, Z86.19 - Personal history of other infectious and parasitic diseases Gamma Glutamyl Transpeptidase Today R74.01 - Elevation of levels of liver transaminase levels, Z01.818 - Encounter for other preprocedural examination, Z86.19 - Personal history of other infectious and parasitic diseases Ferritin Today R74.01 - Elevation of levels of liver transaminase levels, Z01.818 - Encounter for other preprocedural examination, Z86.19 - Personal history of other infectious and parasitic diseases Liver Fibrosis Pnl Today R74.01 - Elevation of levels of liver transaminase levels, Z01.818 - Encounter for other preprocedural examination, Z86.19 - Personal history of other infectious and parasitic diseases Phosphatidylethanol, Blood Today R74.01 - Elevation of levels of liver transaminase levels, Z01.818 - Encounter for other preprocedural examination, Z86.19 - Personal history of other infectious and parasitic diseases EGD/Chandler Combo - GI Use Only Today K70.9 - Alcoholic liver disease, unspecified, Z01.818 - Encounter for other preprocedural examination Comprehensive Met. Panel Today R74.01 - Elevation of levels of liver transaminase levels, Z01.818 - Encounter for other preprocedural examination, Z86.19 - Personal history of other infectious and parasitic diseases Hepatitis A,B,C Profile Today R74.01 - Elevation of levels of liver transaminase levels, Z01.818 - Encounter for other preprocedural examination, Z86.19 - Personal history of other infectious and parasitic diseases HIV Ab/Ag Today R74.01 - Elevation of levels of liver transaminase levels, Z01.818 - Encounter for other preprocedural examination, Z86.19 - Personal history of other infectious and parasitic diseases Mitochondrial Antibody Today R74.01 - Elevation of levels of liver transaminase levels, Z01.818 - Encounter for other preprocedural examination, Z86.19 - Personal history of other infectious and parasitic diseases Smooth Muscle Antibody Today R74.01 - Elevation of levels of liver transaminase levels, Z01.818 - Encounter for other preprocedural examination, Z86.19 - Personal history of other infectious and parasitic diseases Medications: New peg 3350-electrolytes 236-22.74-6.74 -5.86 gram (Golytely) until fecal effluent is clear; do not exceed a total volume of 2,000 mL 240 mL PO Q10M 4,000 mL 0RF 1 day Z12.11 - Encounter for screening for malignant neoplasm of colon bisacodyl (Dulcolax (bisacodyl)) 10 mg (2 x 5 mg) PO BEDTIME 4 tabs 0RF 2 days Coding Level of Care Code New Pt Level 3 (42608) Diagnoses ETOH abuse F10.10 GERD (gastroesophageal reflux disease) K21.9 Transaminitis R74.01 History of hepatitis C Z86.19 Pre-op examination Z01.818 Alcoholic liver disease K70.9
[2024-02-22 08:18] VITALS: BP 156/73; RESP 72; BMI 35.9
== END 2024-02-22 09:08 | disposition home or self-care (01) ==
PROVIDERS: PCP Family Medicine; Visit Provider Nurse Practitioner
DX: F10.10 Alcohol abuse, uncomplicated (principal); K21.9 Gastro-esophageal reflux disease without esophagitis; R74.01 Elevation of levels of liver transaminase levels; Z86.19 Personal history of other infectious and parasitic diseases; Z01.818 Encounter for other preprocedural examination; K70.9 Alcoholic liver disease, unspecified
CPT/HCPCS: 99203

== ENCOUNTER → 2024-02-22 08:05 | Outpatient (BNVA) | payer OTHER, SELFPAY | PROVIDERS: PCP Family Medicine; Visit Provider Nurse Practitioner | DX: Z01.818 Encounter for other preprocedural examination (principal); K21.9 Gastro-esophageal reflux disease without esophagitis; K70.9 Alcoholic liver disease, unspecified; R74.01 Elevation of levels of liver transaminase levels; F10.10 Alcohol abuse, uncomplicated; Z86.19 Personal history of other infectious and parasitic diseases | CPT/HCPCS: 99202 ==

== ENCOUNTER 2024-07-19 11:27 | Outpatient (AMB) | payer OTHER, SELFPAY ==
--- NOTE | 2024-07-19 11:35 | MHC.PC.OV ---
Vital Signs 07/19/24 11:39 Height 5 ft 7 in Weight 227 lb 4 oz BMI 35.6 BP 150/70 H Blood Pressure Location Rt brachial Position Sitting Respiration 16 Pulse 66 Pulse Source Pulse Oximeter Temp 97.7 F Temp Source Oral Pulse Oximetry (%) 97 Oxygen Delivery Method Room Air Intake Visit Reasons: High Blood Pressure medications follow up, Extended Exam Intake Note: Extended Exam & BP Allergies bee sting Allergy (Intermediate, Uncoded 07/19/24 11:38) Swelling Medication List - Last Reconciled 07/19/24 by Terrance Hollis MD allopurinol 100 mg PO BID 30 days amlodipine 10 mg PO DAILY 30 days bisacodyl (Dulcolax (bisacodyl)) 10 mg (2 x 5 mg) PO BEDTIME 2 days clonidine HCl 0.1 mg PO BID PRN 30 days lisinopril 10 mg PO DAILY 90 days metoprolol succinate ER 25 mg PO DAILY 90 days mirtazapine 15 mg PO BEDTIME 30 days naproxen 500 mg PO BID PRN 30 days omeprazole 20 mg PO DAILY 90 days peg 3350-electrolytes 236-22.74-6.74 -5.86 gram (Golytely) 240 mL PO Q10M 1 day [stool softener and stimulant PO] trazodone 150 mg (1.5 x 100 mg) PO BEDTIME 30 days triamcinolone acetonide 0.5% 1 appl topical BID 14 days vitamin B complex 1 tab PO DAILY 30 days Tobacco use date assessed: 12/07/23 Dental Screening Dental Screen Date: 12/07/23 HPI High Blood Pressure medications follow up HPI Details 63 y/o male presents to f/u hypertension. Also here for an extended exam. Blood pressure today 150/70, 66p. He is on lisinopril 10mg, metoprolol 25mg, amlodipine 10mg daily. Notes he continues drinking EtOH. HPI Comments History of Present Illness Details Documentation assistance for Terrance Hollis MD, was provided by Dimas Long, [employer] Supervisor on 07/17/2024 at 12:01 PM EST. I, Dr. Hollis, have read, observed, and verified documentation. PFSH Medical History (Updated 02/22/24 @ 08:32 by BRE Salas) Gout High blood pressure Surgical History (Updated 02/22/24 @ 08:27 by Sharon Khan) History of left shoulder replacement Hx of left knee surgery History of esophagogastroduodenoscopy (EGD) Hx of colonoscopy No pertinent past surgical history Family History Sister Substance abuse Mental health disorder Brother Cardiovascular disorder Mental health disorder Other Alcohol abuse Social History Household Members: Spouse and Significant Other Housing: Apartment Alcohol intake: current Alcohol intake frequency: other Comment: 0.5-1 pint daily Patient Tobacco Use Status: Former Tobacco user Cigarettes Per Day: 20 Years Smoked: 15 e-Cigarette/Vaping Use: Never Used Substance Use Type: Marijuana service: No Current occupational status: disabled Sexual orientation: Unable to collect Gender identity: Unable to collect Cognitive needs: No Hearing needs: No Vision needs: No Questionnaire PHQ-9 Over the last 2 weeks, how often have you been bothered by any of the following problems? 1. Little interest or pleasure in doing things: several days 2. Feeling down, depressed, or hopeless: not at all 3. Trouble falling or staying asleep, or sleeping too much: several days 4. Feeling tired or having little energy: nearly every day 5. Poor appetite or overeating: not at all 6. Feeling bad about yourself - or that you are a failure or have let yourself or your family down: not at all 7. Trouble concentrating on things, such as reading the newspaper or watching television: not at all 8. Moving or speaking so slowly that other people could have noticed. Or the opposite - being so fidgety or restless that you have been moving around a lot more than usual: not at all 9. Thoughts that you would be better off or of hurting yourself in some way: not at all Total score: 5 Source: Developed by Drs. Mark Brink, Deborah Block, Gordy Valencia and colleagues, with an educational soledad from [employer]. Thrive Questionnaire Date Thrive assessed: 07/19/24 I am a: Patient What is your living situation today?: I have a steady place to live Within the past 12 months, did the food you bought not last and you didn't have the money to get more?: Never true Within the past 12 months, did you worry whether your food would run out before you got money to buy more?: Never true Do you have trouble paying for medicines?: No Do you have trouble getting transportation to medical appointments?: No Do you have trouble paying your heating and electricity bill?: No Do you have trouble taking care of your child, family member or friend?: No Do you have trouble with day-to-day activities such as bathing, preparing meals, shopping, managing finances, etc.?: No Are you currently unemployed and looking for a job?: No Are you interested in more education?: No Please select the resources that you would like help with: None Currently or been in a relationship where the following occur: No concerns reported THRIVE Score: 0 AUDIT C Alcohol Use Questionnaire (AUDIT-C) 1. How often do you have a drink containing alcohol?: 2-3 times a week 2. How many drinks containing alcohol do you have on a typical day when you are drinking?: 3 or 4 3. How often do you have six or more drinks on one occasion?: Less than monthly Total Score: 5 NUNU-7 AMB Questionnaire NUNU-7 Date NUNU - 7 assessed: 12/07/23 Source: Developed by Drs. Mark Brink, Deborah Block, Gordy Valencia and colleagues, with an educational soledad from [employer]. Review of Systems Const Denies chills, Denies fatigue, Denies fever(s), Denies headache(s) and Denies weakness Eyes Denies change in vision ENT Denies dizziness and Denies headache(s) Card Denies dyspnea Resp Denies cough, Denies dyspnea, Denies wheezing and Denies other (shortness of breath) GI Denies abdominal pain, Denies melena, Denies hematochezia, Denies change in bowel habits, Denies dyspepsia and Denies nausea Denies hematuria and Denies dysuria Musc Denies numbness and Denies tingling Skin/Breast Denies rash, Denies unusual bruising and Denies wounds Neuro Denies dizziness, Denies headache(s), Denies numbness, Denies Sensory deficit (Neuro), Denies tingling and Denies weakness Psych Denies anxiety and Denies depression Endo Denies fatigue Gigi/Lymph Denies easy bleeding and Denies easy bruising Aller/Immun Denies wheezing Physical exam (Primary Care) Vital Signs: Last Vital Signs Temp 97.7 F 07/19/24 11:39 Pulse 66 07/19/24 11:39 Resp 16 07/19/24 11:39 BP 150/70 H 07/19/24 11:39 Pulse Ox 97 07/19/24 11:39 Oxygen Delivery Method Room Air 07/19/24 11:39 BMI result Body Mass Index 35.6 Tobacco/Smoking Status: Tobacco use Status Tobacco use date assessed 12/07/23 07/19/24 11:35 Patient Tobacco Use Status Former Tobacco user 07/19/24 11:35 e-Cigarette/Vaping Use Never Used 07/19/24 11:35 PHQ-9: PHQ-9 Score PHQ-9: Total score 5 07/19/24 11:52 Thrive Assessment: Date of Thrive Assessment Date Thrive assessed 07/19/24 07/19/24 11:35 Currently or been in a relationship where the following occur: No concerns reported Const General: well developed; No acute distress Nutritional Appearance: well nourished Orientation/consciousness: patient oriented x3 HENMT Head: Yes normocephalic and Yes atraumatic Ears: hearing grossly normal bilaterally and TM's normal bilaterally General nose exam: Normal external nose present and Normal nares present Mouth: Normal oral and palatal mucosa present and moist mucous membranes Teeth and gingiva: dentition normal Throat: Yes posterior oropharynx normal Eyes General: appearance normal, both eyes and all related structures Pupils: Equal, round and reactive pupils present EOM: EOMs intact bilaterally Neck Neck: Yes normal visual inspection, Yes no lymphadenopathy and Yes trachea midline Thyroid: Thyroid normal Carotids: no bruits Lymphatic: no lymphadenopathy noted Chest Chest palpation & inspection: normal inspection of the chest Resp Other: Distant breath sounds Effort & Inspection: normal respiratory effort Auscultation: clear to auscultation bilaterally Cardio Rate: regular rate Rhythm: regular rhythm Heart sounds: S1 normal heart sound present, S2 normal heart sound present, no gallops, no murmurs and no rubs Bruits: no abdominal aortic bruits and no carotid bruits GI Palpation (GI): No Abdominal aortic bruit present, Soft to palpation, nontender, No hepatosplenomegaly present and No Rebound tenderness present Auscultation: normal bowel sounds General: Yes no CVA tenderness Back/Spine/Pelvis Back: no CVA tenderness Cervical Spine: cervical ROM normal and No Cervical spine tenderness Thoracic/Lumbar Spine: thoraco-lumbar ROM normal, No pain with thoraco-lumbar ROM, No thoracic spinal tenderness and No lumbar spinal tenderness Skin Lesions: no lesions Rashes: no rashes Trauma: no lacerations or abrasions Wounds: no wounds Nails: normal Neuro General: patient oriented x3 and gait normal Cranial nerves: Yes Equal, round and reactive pupils present Cognition (Neuro): normal cognition Gait exam (Neuro): Normal gait present Motor exam (neuro): 5/5 motor strength present throughout Sensory Exam: No Sensory deficit (Neuro) Deep tendon reflexes (DTR's): Right patellar reflex intensity grade: 2+ and Left patellar reflex intensity grade: 2+ Extrem General: Yes normal to inspection and No edema Psych Appearance: grossly normal Affect: normal affect Attitude: cooperative Thought process: Normal thought process present Coding Level of Care Code Est Pt Level 3 (24572) Diagnoses High blood pressure I10 Alcohol use disorder F10.90 Alcoholic liver disease K70.9 Screening for prostate cancer Z12.5 Screening for colon cancer Z12.11 Adult general medical exam Z00.00 Assessment & Plan Assessment & Plan (1) High blood pressure: Code(s): I10 - Essential (primary) hypertension Category: Medical Plan: Blood?pressure?is?too?high Continue?metoprolol?and?amlodipine Increase?lisinopril?from?10?mg?daily?to?20?mg?daily Will?follow-up?in?a?month (2) Alcohol use disorder: Code(s): F10.90 - Alcohol use, unspecified, uncomplicated Category: Medical Plan: Have?had?discussions?with?patient?on?more?than?1?occasion?and?made?referrals[facility]to[facility]. Discussed?with?patient?again?today?and?he?can?let?me?know?if/when?he?is?ready?to?try?this. Encouraged?weaning?and?cessation (3) Alcoholic liver disease: Code(s): K70.9 - Alcoholic liver disease, unspecified Category: Medical Plan: Followed?by?Gastroenterology Has?appointment?tomorrow (4) Screening for prostate cancer: Code(s): Z12.5 - Encounter for screening for malignant neoplasm of prostate Category: Medical Plan: PSA?is?ordered. Will?follow-up?with?patient?at?next?visit (5) Screening for colon cancer: Code(s): Z12.11 - Encounter for screening for malignant neoplasm of colon Category: Medical Plan: Followed?by?Gastroenterology?and?has?appointment?tomorrow (6) Adult general medical exam: Code(s): Z00.00 - Encounter for general adult medical examination without abnormal findings Category: Medical Plan: 63-year-old?male?presents?for?an?extended?exam Orders: Orders Comprehensive Met. Panel Today K70.9 - Alcoholic liver disease, unspecified Lipid Panel Today Z00.00 - Encounter for general adult medical examination without abnormal findings Prostate Specific Antigen Scr Today Z12.5 - Encounter for screening for malignant neoplasm of prostate UA and rflx microscopic Today Z00.00 - Encounter for general adult medical examination without abnormal findings Hemoglobin A1c Today R73.01 - Impaired fasting glucose Microalbumin, Random (w Creat) Today I10 - Essential (primary) hypertension Complete Blood Count Auto Diff Today K70.9 - Alcoholic liver disease, unspecified, Z00.00 - Encounter for general adult medical examination without abnormal findings TSH reflex Free T4 Today Z00.00 - Encounter for general adult medical examination without abnormal findings Medications: Changed From lisinopril 10 mg PO DAILY 90 days 90 tabs 2RF To lisinopril 20 mg PO DAILY 90 tabs 2RF 90 days
[2024-07-19 11:39] VITALS: BP 150/70; PULSE 66; RESP 16; TEMP 36.5; O2SAT 97; BMI 35.6
== END 2024-07-19 12:06 | disposition home or self-care (01) ==
PROVIDERS: PCP Family Medicine; Visit Provider Family Medicine
DX: I10 Essential (primary) hypertension (principal); F10.90 Alcohol use, unspecified, uncomplicated; K70.9 Alcoholic liver disease, unspecified; Z12.5 Encounter for screening for malignant neoplasm of prostate; Z12.11 Encounter for screening for malignant neoplasm of colon; Z00.00 Encounter for general adult medical examination without abnormal findings

== ENCOUNTER → 2024-07-19 11:27 | Outpatient (BNVA) | payer OTHER, SELFPAY | PROVIDERS: PCP Family Medicine; Visit Provider Family Medicine | DX: I10 Essential (primary) hypertension (principal); F10.90 Alcohol use, unspecified, uncomplicated; K70.9 Alcoholic liver disease, unspecified; Z79.899 Other long term (current) drug therapy | CPT/HCPCS: 99212 ==

== ENCOUNTER 2024-07-20 10:02 | Outpatient (REF) | payer OTHER, SELFPAY ==
[2024-07-20 11:57] LABS: Ammonia 39 umol/L (13-55)
[2024-07-20 12:03] LABS: Appearance Urine Clear; Color Urine Yellow; Glucose Urine UA Negative (Negative); Leukocyte Esterase Urine Negative (Negative); Nitrite Urine Negative (Negative); PH 5.5 (5.0-9.0); Urine Blood Negative (Negative); Urine Ketones Negative (Negative); Urine Protein Negative (Neg-Trace)
[2024-07-20 12:25] LABS: Estimated Average Glucose 103 mg/dL; Hemoglobin A1C 142.9872 umol/L; Hemoglobin A1c % 5.2 % (<6.0); Total Hemoglobin (HGBA1C) 4315.7445 umol/L
[2024-07-20 12:39] LABS: Alanine Aminotransferase 208 U/L (0-40); Albumin Level 4.6 g/dL (3.5-5.0); Alkaline Phosphatase 102 U/L (39-117); Anion Gap 16 (12-20); Aspartate Amino Transferase 219 U/L (5-37); Bilirubin Total 0.7 mg/dL (0.0-1.0); Blood Urea Nitrogen 17 mg/dL (9-16); Carbon Dioxide 20 mmol/L (22-29); Chloride 106 mmol/L (96-108); Cholesterol 203 mg/dL (<200); Estimated Glomerular Filt Rate > 60; Gamma Glutamyl Transpeptidase 203 U/L (11-51); Glucose Random 107 mg/dL (60-115); HDL Cholesterol 44 mg/dL (>40); LDL Cholesterol Calculated 128 mg/dL (<100); Potassium 4.1 mmol/L (3.3-5.1); Sodium 138 mmol/L (135-145); Triglycerides 159 mg/dL (<150)
[2024-07-20 12:41] LABS: HBc Num1 6.25 S/CO (0.00-0.79); HBsAGNum1 0.36 S/CO (0.00-0.99); HIV AB/AG Nonreactive (Nonreactive); HIV Num 1 0.06 S/CO (0.00-0.99); Hepatitis A Antibody IgM 0.25 Index (0-0.79); Hepatitis B Surface Antigen Negative (Negative); ~HepC Num1 13.39 S/CO (0.00-0.79); ~Hepatitis A Antibody IgM Nonreactive (Nonreactive); ~Hepatitis B Surface Antibody NONREACTIVE (Nonreactive); ~Hepatitis C Antibody Reactive (Nonreactive)
[2024-07-20 12:42] LABS: Ferritin 294 ng/mL (20-250)
[2024-07-20 12:43] LABS: Creatinine Urine 97.44 mg/dL; Microalbum/Creatinine Ratio Ur 20.5 ug/mg cr (<30)
[2024-07-20 12:47] LABS: TSH reflex Free T4 2.14 uIU/mL (0.32-4.0)
[2024-07-20 12:50] LABS: Prostate Specific Antigen Scr 1.37 ng/mL (<0.05-4.0)
[2024-07-20 13:44] LABS: HBc Num2 6.06 S/CO; HBc Num3 6.19 S/CO; Hepatitis B Core Antibody Reactive (Nonreactive)
[2024-07-21 07:54] LABS: Hepatitis B Core Antibody IgM NON-REACTIVE (NON-REACTIVE)
[2024-07-23 13:18] LABS: Mitochondrial Antibodies NEGATIVE (NEGATIVE)
[2024-07-24 11:33] LABS: Smooth Muscle Antibody <20 U (<20)
[2024-07-26 07:34] LABS: Anti Nuclear Antibody Screen NEGATIVE (NEGATIVE)
[2024-08-02 10:57] LABS: Phosphatidylethanol 16:0-18:1 >400 (H); Phosphatidylethanol 16:0-18:2 391 (H)
[2024-08-02 10:58] LABS: Liver Fibrosis Score 0.87; Liver Fibrosis Stage F4
[2024-08-02 10:59] LABS: Liver Fibrosis Interpretation severe fibrosis; Nec Inflam Act Grade A3; Nec Inflam Act Interpretation severe activity; Nec Inflam Act Score 0.87
[2024-08-02 11:00] LABS: FIB-Alpha-2-Macroglobulin 479 (H)
[2024-08-02 11:01] LABS: FIB-Apolipoprotein A1 171; FIB-Haptoglobin 57
[2024-08-02 11:02] LABS: FIB-ALT 154 (H); FIB-GGT 165 (H); FIB-Total Bilirubin 0.6
[2024-08-02 11:03] LABS: Reference ID 5203380
== END 2024-07-20 10:03 | disposition home or self-care (01) ==
LOC: HO.LAB 10:02
PROVIDERS: PCP Family Medicine; Visit Provider Nurse Practitioner
DX: Z01.818 Encounter for other preprocedural examination (principal); R74.01 Elevation of levels of liver transaminase levels; Z86.19 Personal history of other infectious and parasitic diseases; Z00.00 Encounter for general adult medical examination without abnormal findings; R73.01 Impaired fasting glucose; I10 Essential (primary) hypertension; Z12.5 Encounter for screening for malignant neoplasm of prostate
CPT/HCPCS: 36415; 80053; 80061; 80321; 81003; 81596; 82043; 82105; 82140; 82570; 82728; 82977; 83036; 84153; 84443; 85025; 86015; 86038; 86381; 86704; 86705; 86706; 86709; 86803; 87340; 87389

== ENCOUNTER 2024-07-24 06:21 | Outpatient (REF) | payer OTHER, SELFPAY ==
[2024-07-24 06:49] LABS: MANUAL DIFF FLAG NO
[2024-07-24 07:03] LABS: Basophils Absolute Auto 0.1 X10*3/uL (0.0-0.2); Basophils Percent Auto 1.1 % (0-2); Eosinophils Absolute Auto 0.3 X10*3/uL (0.0-0.4); Eosinophils Percent Auto 3.5 % (0-4); Hematocrit 44.6 % (42.0-52.0); Hemoglobin 16.1 g/dl (14.0-18.0); Imm Gran Abs Auto 0.02 X10*3/uL (0.00-0.03); Imm Gran Pct Auto 0.3 % (0.0-0.4); Lymphocytes Absolute Auto 1.7 X10*3/uL (1.2-4.9); Lymphocytes Percent Auto 23.6 % (20-40); Mean Corpuscular HGB Conc 36.1 g/dl (31.0-36.0); Mean Corpuscular Hemoglobin 34.5 pg (27.0-33.0); Mean Corpuscular Volume 95.5 fL (80.0-98.0); Mean Platelet Volume 9.6 fL (9.4-12.4); Monocytes Absolute Auto 0.9 X10*3/uL (0.1-1.2); Monocytes Percent Auto 11.6 % (2-11); Neutrophils Absolute Auto 4.4 x10*3/uL (2.0-8.3); Neutrophils Percent Auto 59.9 % (45-73); Platelet Count 137 X10*3/uL (160-400); Red Blood Count 4.67 X10*6/uL (4.60-5.80); Red Cell Distribution Width 12.9 % (11.0-16.0); White Blood Count 7.3 X10*3/uL (4.8-10.8)
[2024-07-26 14:44] LABS: HCV Log PCR <1.18 NOT DETECTED Log IU/mL (NOT DETECTED); HepC Viral Load <15 NOT DETECTED IU/mL (NOT DETECTED)
== END 2024-07-24 06:22 | disposition home or self-care (01) ==
LOC: HO.LAB 06:21
PROVIDERS: Nurse Practitioner; PCP Family Medicine; Visit Provider Family Medicine
DX: Z01.818 Encounter for other preprocedural examination (principal); R74.01 Elevation of levels of liver transaminase levels; Z86.19 Personal history of other infectious and parasitic diseases
CPT/HCPCS: 36415; 85025; 87522

== ENCOUNTER 2024-08-16 10:43 | Outpatient (AMB) | payer MEDICARE, OTHER, SELFPAY ==
[2024-08-16 10:44] VITALS: BP 156/88; PULSE 73; BMI 35.1
--- NOTE | 2024-08-16 10:44 | MHC.OFFVIS ---
Vital Signs 08/16/24 10:44 Height 5 ft 7 in Weight 224 lb 6.889 oz BMI 35.1 BP 156/88 H Blood Pressure Location Rt brachial Position Sitting Pulse 73 Intake Visit Reasons: Follow up labs Intake Note: Patient in office today in follow up of labs. CC: The patient reports that he could not have colonoscopy done d/t transportation issues. Denies having any GI concerns today. 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 Accompanied by: Self / Same As Patient Allergies No Known Drug Allergies Allergy (Unknown, Verified 12/07/24 12:28) Unknown bee sting Allergy (Intermediate, Uncoded 12/07/24 12:28) Swelling HPI HPI Follow up labs: Details: Assessment & Plan (1) ETOH abuse: Code(s): F10.10 - Alcohol abuse, uncomplicated Category: Social Hx (2) GERD (gastroesophageal reflux disease): Code(s): K21.9 - Gastro-esophageal reflux disease without esophagitis Category: Medical (3) Transaminitis: Comment: BASELINE LABS 03/18/2312/14/23 07:1709:45 WBC 7.2 Hgb 15.6 Hct 44.3 Plt Count 186 Estimated GFR > 60 Total Bilirubin 0.7 AST 118 H ALT 101 H Alkaline Phosphatase 84 05/13/23 08:53 Estimated GFR > 60 Total Bilirubin 0.6 AST 64 H ALT 66 H Alkaline Phosphatase 81 ULTRASOUND OF THE ABDOMEN WITH ELASTOGRAPHY 09/20/23 (F2-F3) CURRENT LABS ULTRASOUND OF THE ABDOMEN WITH ELASTOGRAPHY 09/20/23 (F2-F3) FINDINGS: PANCREAS: Normal. The visualized pancreatic head and body are normal in appearance. The remainder of the pancreas is obscured from visualization by the overlying bowel gas. LIVER: The liver demonstrates normal contour and increased echogenicity. No focal lesion or intrahepatic biliary duct dilatation. The right lobe measures 18.7 cm in length. The left lobe measures 12.3 cm in length. Portal flow is towards the liver (hepatopetal). Shear wave liver elastography median stiffness is 1.90 m/s (reference: normal median stiffness is 1.3 m/s or less). IQR/median stiffness to assess sampling precision is 0.07 (reference: good quality data set is IQR/median stiffness of 0.15 or less). GALLBLADDER: There are multiple gallstones. The gallbladder is physiologically distended without evidence of sludge, polyps, wall thickening or pericholecystic fluid. COMMON BILE DUCT: Normal in caliber measuring 0.6 cm in diameter. RIGHT KIDNEY: Normal. No hydronephrosis. No renal calculi or focal parenchymal lesions. The kidney measures 10.4 cm in maximum dimension. FREE FLUID: None. US/US abdomen vail w elastography IMPRESSION: 1. There is generalized increase in hepatic echotexture, consistent with fatty infiltration or hepatocellular disease. Please correlate clinically. No focal hepatic mass or intrahepatic biliary dilatation is seen. 2. There is hepatomegaly. 3. Liver elastography: Measurements are suggestive of compensated advanced chronic liver disease but need further test for confirmation. 4. Technically limited ultrasound examination of the pancreas. Code(s): R74.01 - Elevation of levels of liver transaminase levels Category: Medical (4) History of hepatitis C: Code(s): Z86.19 - Personal history of other infectious and parasitic diseases Category: Medical (5) Pre-op examination: Code(s): Z01.818 - Encounter for other preprocedural examination Category: Medical (6) Alcoholic liver disease: Code(s): K70.9 - Alcoholic liver disease, unspecified Category: Medical Plan THE PATIENT HAD A PRIOR COLONOSCOPY ABOUT 10 years ago that he says was normal. He thinks it was [facility] but I can not find anything in there database. I also look at the primary care note and realize the patient has alcoholic liver disease. This was not in the referral but it is going to be something we will have to investigate and treat. He has CIC but he will move his bowels with colace. He has also used gummy fiber pills. He has GERD well controlled with omeprazole. I note multiple bruising on his arms and he admits he bruises easily. I explained this is likely due to his alcoholic liver disease as this interferes with various clotting factors. He still drinks vodka a pint 4-5 week. I let him know that complete sobriety is likely the only way to see if his liver as he likely has an element of MARTIN on top of alcoholic liver disease to contend with. He has a history of hepatitis-C but this was successfully treated in the remote past. There are no prior problems with anesthesia or sedation. He has ventricular bigeminy on EKG that has not been evaluated by cardiology, he denies any respiratory problems. Hx of txed Hep C but no current ID problems. His father of pancreatic cancer but no FHX of CRC, polyps, or stomach/esophageal cancer. Return office visit in 8 weeks Orders: Orders Complete Blood Count Auto Diff Today R74.01 - Elevation of levels of liver transaminase levels, Z01.818 - Encounter for other preprocedural examination, Z86.19 - Personal history of other infectious and parasitic diseases Alpha Fetoprotein Today R74.01 - Elevation of levels of liver transaminase levels, Z01.818 - Encounter for other preprocedural examination, Z86.19 - Personal history of other infectious and parasitic diseases Ammonia Today R74.01 - Elevation of levels of liver transaminase levels, Z01.818 - Encounter for other preprocedural examination, Z86.19 - Personal history of other infectious and parasitic diseases LEO Reflex Titer and Pattern Today R74.01 - Elevation of levels of liver transaminase levels, Z01.818 - Encounter for other preprocedural examination, Z86.19 - Personal history of other infectious and parasitic diseases Gamma Glutamyl Transpeptidase Today R74.01 - Elevation of levels of liver transaminase levels, Z01.818 - Encounter for other preprocedural examination, Z86.19 - Personal history of other infectious and parasitic diseases Ferritin Today R74.01 - Elevation of levels of liver transaminase levels, Z01.818 - Encounter for other preprocedural examination, Z86.19 - Personal history of other infectious and parasitic diseases Liver Fibrosis Pnl Today R74.01 - Elevation of levels of liver transaminase levels, Z01.818 - Encounter for other preprocedural examination, Z86.19 - Personal history of other infectious and parasitic diseases Phosphatidylethanol, Blood Today R74.01 - Elevation of levels of liver transaminase levels, Z01.818 - Encounter for other preprocedural examination, Z86.19 - Personal history of other infectious and parasitic diseases EGD/[place] Combo - GI Use Only Today K70.9 - Alcoholic liver disease, unspecified, Z01.818 - Encounter for other preprocedural examination Comprehensive Met. Panel Today R74.01 - Elevation of levels of liver transaminase levels, Z01.818 - Encounter for other preprocedural examination, Z86.19 - Personal history of other infectious and parasitic diseases Hepatitis A,B,C Profile Today R74.01 - Elevation of levels of liver transaminase levels, Z01.818 - Encounter for other preprocedural examination, Z86.19 - Personal history of other infectious and parasitic diseases HIV Ab/Ag Today R74.01 - Elevation of levels of liver transaminase levels, Z01.818 - Encounter for other preprocedural examination, Z86.19 - Personal history of other infectious and parasitic diseases Mitochondrial Antibody Today R74.01 - Elevation of levels of liver transaminase levels, Z01.818 - Encounter for other preprocedural examination, Z86.19 - Personal history of other infectious and parasitic diseases Smooth Muscle Antibody Today R74.01 - Elevation of levels of liver transaminase levels, Z01.818 - Encounter for other preprocedural examination, Z86.19 - Personal history of other infectious and parasitic diseases Medications: New peg 3350-electrolytes 236-22.74-6.74 -5.86 gram (Golytely) until fecal effluent is clear; do not exceed a total volume of 2,000 mL 240 mL PO Q10M 4,000 mL 0RF 1 day Z12.11 - Encounter for screening for malignant neoplasm of colon bisacodyl (Dulcolax (bisacodyl)) 10 mg (2 x 5 mg) PO BEDTIME 4 tabs 0RF 2 days LABS Laboratory Tests 07/20/24 07/24/24 11:46 06:47 WBC 7.3 Hgb 16.1 Hct 44.6 Plt Count 137 L D Estimated GFR > 60 Ferritin 294 H Total Bilirubin 0.7 GGT 203 H AST 219 H ALT 208 H Alkaline Phosphatase 102 Liver Fibrosis Stage F4 Ammonia 39 Alpha Fetoprotein 4.0 TSH 2.14 LEO Screen NEGATIVE Anti-Mitochondrial Ab NEGATIVE Anti-Smooth Muscle Ab <20 PEth 16:0/18.1 (POPEth) >400 (H) PEth 16:0/18.2 (PLPEth) 391 (H) Hepatitis A IgM Ab Nonreactive Hep Bs Antigen Negative Hep Bs Antibody NONREACTIVE Hep B Core Total Ab Reactive Hep B Core IgM Ab NON-REACTIVE Hepatitis C Ab (EIA) Reactive H Hep C Viral Load <15 NOT DETECTED Hep C Viral Load Log <1.18 NOT DETECTED HIV 1&2 Ab/P24 Ag 4thGn Nonreactive US WITH ELASTOGRAPHY 09/20/23 (F-3) LIVER: The liver demonstrates normal contour and increased echogenicity. No focal lesion or intrahepatic biliary duct dilatation. The right lobe measures 18.7 cm in length. The left lobe measures 12.3 cm in length. Portal flow is towards the liver (hepatopetal). Shear wave liver elastography median stiffness is 1.90 m/s (reference: normal median stiffness is 1.3 m/s or less). IQR/median stiffness to assess sampling precision is 0.07 (reference: good quality data set is IQR/median stiffness of 0.15 or less). GALLBLADDER: There are multiple gallstones. The gallbladder is physiologically distended without evidence of sludge, polyps, wall thickening or pericholecystic fluid. COMMON BILE DUCT: Normal in caliber measuring 0.6 cm in diameter. RIGHT KIDNEY: Normal. No hydronephrosis. No renal calculi or focal parenchymal lesions. The kidney measures 10.4 cm in maximum dimension. FREE FLUID: None. US/US abdomen vail w elastography IMPRESSION: 1. There is generalized increase in hepatic echotexture, consistent with fatty infiltration or hepatocellular disease. Please correlate clinically. No focal hepatic mass or intrahepatic biliary dilatation is seen. 2. There is hepatomegaly. 3. Liver elastography: Measurements are suggestive of compensated advanced chronic liver disease but need further test for confirmation. 4. Technically limited ultrasound examination of the pancreas. CORRESPONDENCE On 08/07/24 @ 10:11 Jennifer Tinajero Wrote To Nickolas Ross (2) noted - or notified Jennifer Tinajero removed from item. On 08/04/24 @ 17:27 Lauri Daugherty Wrote To Jennifer Tinajero (3) Patient cancelled over the phone for his AUG 09 procedure due to lack of transportation ( sister ) . Pt states sister will be returning from out of state trip in the beginning of August. He wants to keep his f/u labs appt with December. Pt requested a new date for his Upper endo and Colonoscopy SSS. EGD/COLONOSCOPY BIOPSY TODAYS VISIT Reviewed liver, he has quit drinking alcohol in past as much as 8 years. Trying to quit but has S/o in house that drinks and is in latter stage cirrhosis with ascites. Referred to Comp Care program, he admits he has not followed through in past. As always abstinence with stress as really the only way to protect his liver. There is no known family history of liver cancer. Some wt loss ? ETOH sarcopenia. ROV 6 mos, he is ready to reschedule his scope appts. [facility] Medical History Screening for prostate cancer History of gout Laboratory exam ordered as part of routine general medical examination Adult general medical exam Screening for colon cancer Gout High blood pressure Surgical History History of left shoulder replacement Hx of left knee surgery History of esophagogastroduodenoscopy (EGD) Hx of colonoscopy No pertinent past surgical history Family History Sister Substance abuse Mental health disorder Brother Cardiovascular disorder Mental health disorder Other Alcohol abuse Social History (System 12/07/24 @ 12:28 by Tosha Pena) Household Members: Spouse and Significant Other Housing: Apartment Alcohol intake: current Alcohol intake frequency: a few times a week Comment: 0.5-1 pint daily Patient Tobacco Use Status: Former Tobacco user Cigarettes Per Day: 20 Years Smoked: 15 e-Cigarette/Vaping Use: Never Used Substance Use Type: Marijuana service: No Current occupational status: disabled Sexual orientation: Unable to collect Gender identity: Unable to collect Cognitive needs: No Hearing needs: No Vision needs: No Review of Systems Const Denies fatigue, Denies fever(s), Denies night sweats, Denies poor appetite and Reports weight loss ENT Reports Normal hearing present, Denies dental pain, Denies dysphagia, Denies hearing loss, Denies mouth pain, Denies odynophagia, Denies throat swelling, Denies tongue swelling and Reports other (Dentition adequate) Card Reports no additional complaints Resp Reports no additional complaints GI Details: Denies abdominal pain, Denies melena, Denies bloating, Denies hematochezia, Reports constipation, Denies GI cramping, Denies dysphagia, Denies excessive flatus, Denies early satiety, Denies heartburn, Denies diarrhea, Denies nausea, Denies odynophagia, Denies vomiting and Denies hematemesis Skin/Breast Denies pruritus, Denies lesions, Denies rash and Denies jaundice Neuro Reports Normal hearing present and Denies Abnormal speech present Endo Denies fatigue Aller/Immun Denies throat swelling and Denies tongue swelling Physical Exam Vital Signs: Last Vital Signs Pulse 73 08/16/24 10:44 BP 156/88 H 08/16/24 10:44 BMI result Body Mass Index 35.1 Const General: cooperative, no acute distress, well developed and well groomed Nutritional Appearance: well nourished and obese Orientation/consciousness: oriented to person, oriented to place and oriented to time Limitations: No language barrier HEENT Head: Yes normocephalic and Yes atraumatic Eyes General: appearance normal, both eyes and all related structures Pupils: Equal, round and reactive pupils present Neck Neck: Yes normal visual inspection and Yes no lymphadenopathy Thyroid: Thyroid normal Resp Effort & Inspection: normal respiratory effort and able to speak in complete sentences Auscultation: clear to auscultation bilaterally Cardio Rate: regular rate Rhythm: regular rhythm Heart sounds: Normal, physiologic split S2 sound present Peripheral pulses: radial pulses present and posterior tibial pulses present GI Inspection: No distended, No Abdominal panniculus present and Yes obesity Palpation (GI): Soft to palpation, nontender, no guarding, not rigid and No hepatosplenomegaly present Percussion: Yes normal to percussion Auscultation: normal bowel sounds Rectal Exam - Male: Yes deferred Skin General skin exam: no rashes or lesions noted, turgor normal, skin not dry, no jaundice, No spider nevi and no striae Rashes: no rashes Nails: normal Neuro General: oriented to person, oriented to place and oriented to time Cranial nerves: Yes Equal, round and reactive pupils present and Yes Normal hearing present Speech: No Abnormal speech present Extrem General: Yes normal to inspection, No clubbing, No cyanosis and No edema Psych Appearance: grossly normal and well kempt Mental Status: mental status grossly normal Speech and movement: Normal speech and movement present Affect: normal affect Attitude: cooperative Thought process: Normal thought process present and not confabulating Thought content: Normal thought content present Insight: Limited insight present (Psych) Judgement: Limited judgement present (Psych) Results Reviewed Results Reviewed: Laboratory Tests 07/20/24 07/24/24 11:46 06:47 WBC 7.3 Hgb 16.1 Hct 44.6 Plt Count 137 L D Estimated GFR > 60 Ferritin 294 H Total Bilirubin 0.7 GGT 203 H AST 219 H ALT 208 H Alkaline Phosphatase 102 Liver Fibrosis Stage F4 Ammonia 39 Alpha Fetoprotein 4.0 TSH 2.14 LEO Screen NEGATIVE Anti-Mitochondrial Ab NEGATIVE Anti-Smooth Muscle Ab <20 PEth 16:0/18.1 (POPEth) >400 (H) PEth 16:0/18.2 (PLPEth) 391 (H) Hepatitis A IgM Ab Nonreactive Hep Bs Antigen Negative Hep Bs Antibody NONREACTIVE Hep B Core Total Ab Reactive Hep B Core IgM Ab NON-REACTIVE Hepatitis C Ab (EIA) Reactive H Hep C Viral Load <15 NOT DETECTED Hep C Viral Load Log <1.18 NOT DETECTED HIV 1&2 Ab/P24 Ag 4thGn Nonreactive US WITH ELASTOGRAPHY 09/20/23 (F-3) LIVER: The liver demonstrates normal contour and increased echogenicity. No focal lesion or intrahepatic biliary duct dilatation. The right lobe measures 18.7 cm in length. The left lobe measures 12.3 cm in length. Portal flow is towards the liver (hepatopetal). Shear wave liver elastography median stiffness is 1.90 m/s (reference: normal median stiffness is 1.3 m/s or less). IQR/median stiffness to assess sampling precision is 0.07 (reference: good quality data set is IQR/median stiffness of 0.15 or less). GALLBLADDER: There are multiple gallstones. The gallbladder is physiologically distended without evidence of sludge, polyps, wall thickening or pericholecystic fluid. COMMON BILE DUCT: Normal in caliber measuring 0.6 cm in diameter. RIGHT KIDNEY: Normal. No hydronephrosis. No renal calculi or focal parenchymal lesions. The kidney measures 10.4 cm in maximum dimension. FREE FLUID: None. US/US abdomen vail w elastography IMPRESSION: 1. There is generalized increase in hepatic echotexture, consistent with fatty infiltration or hepatocellular disease. Please correlate clinically. No focal hepatic mass or intrahepatic biliary dilatation is seen. 2. There is hepatomegaly. 3. Liver elastography: Measurements are suggestive of compensated advanced chronic liver disease but need further test for confirmation. 4. Technically limited ultrasound examination of the pancreas. Assessment & Plan Assessment & Plan (1) Transaminitis: Comment: BASELINE LABS 03/18/2312/14/23 07:1709:45 WBC 7.2 Hgb 15.6 Hct 44.3 Plt Count 186 Estimated GFR > 60 Total Bilirubin 0.7 AST 118 H ALT 101 H Alkaline Phosphatase 84 05/13/23 08:53 Estimated GFR > 60 Total Bilirubin 0.6 AST 64 H ALT 66 H Alkaline Phosphatase 81 ULTRASOUND OF THE ABDOMEN WITH ELASTOGRAPHY 09/20/23 (F2-F3) 07/20/2411/11/24 11:4606:47 WBC 7.3 Hgb 16.1 Hct 44.6 Plt Count 137 L D Estimated GFR > 60 Ferritin 294 H Total Bilirubin 0.7 GGT 203 H AST 219 H ALT 208 H Alkaline Phosphatase 102 Liver Fibrosis Stage F4 Ammonia 39 Alpha Fetoprotein 4.0 TSH 2.14 LEO Screen NEGATIVE Anti-Mitochondrial Ab NEGATIVE Anti-Smooth Muscle Ab <20 PEth 16:0/18.1 (POPEth) >400 (H) PEth 16:0/18.2 (PLPEth) 391 (H) Hepatitis A IgM Ab Nonreactive Hep Bs Antigen Negative Hep Bs Antibody NONREACTIVE Hep B Core Total Ab Reactive Hep B Core IgM Ab NON-REACTIVE Hepatitis C Ab (EIA) Reactive H Hep C Viral Load <15 NOT DETECTED Hep C Viral Load Log <1.18 NOT DETECTED HIV 1&2 Ab/P24 Ag 4thGn Nonreactive US WITH ELASTOGRAPHY 09/20/23 (F-3) Liver Fibrosis Stage F4 CURRENT LABS ULTRASOUND OF THE ABDOMEN WITH ELASTOGRAPHY 09/20/23 (F2-F3) FINDINGS: PANCREAS: Normal. The visualized pancreatic head and body are normal in appearance. The remainder of the pancreas is obscured from visualization by the overlying bowel gas. LIVER: The liver demonstrates normal contour and increased echogenicity. No focal lesion or intrahepatic biliary duct dilatation. The right lobe measures 18.7 cm in length. The left lobe measures 12.3 cm in length. Portal flow is towards the liver (hepatopetal). Shear wave liver elastography median stiffness is 1.90 m/s (reference: normal median stiffness is 1.3 m/s or less). IQR/median stiffness to assess sampling precision is 0.07 (reference: good quality data set is IQR/median stiffness of 0.15 or less). GALLBLADDER: There are multiple gallstones. The gallbladder is physiologically distended without evidence of sludge, polyps, wall thickening or pericholecystic fluid. COMMON BILE DUCT: Normal in caliber measuring 0.6 cm in diameter. RIGHT KIDNEY: Normal. No hydronephrosis. No renal calculi or focal parenchymal lesions. The kidney measures 10.4 cm in maximum dimension. FREE FLUID: None. US/US abdomen vail w elastography IMPRESSION: 1. There is generalized increase in hepatic echotexture, consistent with fatty infiltration or hepatocellular disease. Please correlate clinically. No focal hepatic mass or intrahepatic biliary dilatation is seen. 2. There is hepatomegaly. 3. Liver elastography: Measurements are suggestive of compensated advanced chronic liver disease but need further test for confirmation. 4. Technically limited ultrasound examination of the pancreas. Code(s): R74.01 - Elevation of levels of liver transaminase levels Category: Medical (2) Alcoholic liver disease: Code(s): K70.9 - Alcoholic liver disease, unspecified Category: Medical (3) History of hepatitis C: Code(s): Z86.19 - Personal history of other infectious and parasitic diseases Category: Medical (4) GERD (gastroesophageal reflux disease): Code(s): K21.9 - Gastro-esophageal reflux disease without esophagitis Category: Medical (5) Constipation: Code(s): K59.00 - Constipation, unspecified Category: Medical (6) Alcohol use disorder: Code(s): F10.90 - Alcohol use, unspecified, uncomplicated Category: Medical (7) Angular cheilitis: Code(s): K13.0 - Diseases of lips Category: Medical Plan Reviewed liver, he has quit drinking alcohol in past as much as 8 years. Trying to quit but has S/o in house that drinks and is in latter stage cirrhosis with ascites. Referred to [facility] program, he admits he has not followed through in past. As always abstinence with stress as really the only way to protect his liver. There is no known family history of liver cancer. Some wt loss ? ETOH sarcopenia. ROV 6 mos, he is ready to reschedule his scope appts. Orders: Orders Vitamin B12 and Folate 08/16/24 K13.0 - Diseases of lips Referrals Addiction Medicine Referral K70.9 - Alcoholic liver disease, unspecified, F10.90 - Alcohol use, unspecified, uncomplicated Coding Level of Care Code Est Pt Level 3 (54767) Diagnoses Transaminitis R74.01 Alcoholic liver disease K70.9 History of hepatitis C Z86.19 GERD (gastroesophageal reflux disease) K21.9 Constipation K59.00 Alcohol use disorder F10.90 Angular cheilitis K13.0
== END 2024-08-16 11:35 | disposition home or self-care (01) ==
PROVIDERS: PCP Family Medicine; Visit Provider Nurse Practitioner
DX: R74.01 Elevation of levels of liver transaminase levels (principal); K70.9 Alcoholic liver disease, unspecified; Z86.19 Personal history of other infectious and parasitic diseases; K21.9 Gastro-esophageal reflux disease without esophagitis; K59.00 Constipation, unspecified; F10.90 Alcohol use, unspecified, uncomplicated; K13.0 Diseases of lips
CPT/HCPCS: 99213

== ENCOUNTER → 2024-08-16 10:43 | Outpatient (BNVA) | payer MEDICARE, OTHER, SELFPAY | PROVIDERS: PCP Family Medicine; Visit Provider Nurse Practitioner | DX: K21.9 Gastro-esophageal reflux disease without esophagitis (principal); K70.9 Alcoholic liver disease, unspecified; K59.00 Constipation, unspecified; K13.0 Diseases of lips; F10.10 Alcohol abuse, uncomplicated; R70.1 Abnormal plasma viscosity; Z86.19 Personal history of other infectious and parasitic diseases | CPT/HCPCS: 99212 ==

== ENCOUNTER 2024-10-11 14:43 | Outpatient (AMB) | payer BC, SELFPAY ==
--- NOTE | 2024-10-11 14:55 | A.OFFPC_ITS ---
Vital Signs 10/11/24 14:59 Height 5 ft 7 in Weight 230 lb 4 oz BMI 36.1 BP 114/64 Blood Pressure Location Lt brachial Position Sitting Respiration 14 Pulse 63 Pulse Source Pulse Oximeter Temp 97.8 F Temp Source Oral Pulse Oximetry (%) 96 Oxygen Delivery Method Room Air Intake Visit Reasons: f/u htn, labs Intake Note: f/u htn lab review Allergies No Known Drug Allergies Allergy (Unknown, Verified 10/11/24 14:57) Unknown bee sting Allergy (Intermediate, Uncoded 07/19/24 11:38) Swelling Tobacco use date assessed: 12/07/23 Dental Screening Dental Screen Date: 12/07/23 HPI f/u htn, labs HPI Details 64 y/o male presents to f/u hypertension , labs. Blood pressure today 114/64, 63p. Labs drawn 07/20/24. Reviewed labs with pt. Triglycerides 159. TC 203. LDL 128. HDL 44. Notes pt continues to work on weaning in quitting EtOH. [facility] Medical History (Updated 10/11/24 @ 15:30 by Terrance Hollis MD) Screening for prostate cancer History of gout Laboratory exam ordered as part of routine general medical examination Adult general medical exam Screening for colon cancer Gout High blood pressure Surgical History History of left shoulder replacement Hx of left knee surgery History of esophagogastroduodenoscopy (EGD) Hx of colonoscopy No pertinent past surgical history Family History Sister Substance abuse Mental health disorder Brother Cardiovascular disorder Mental health disorder Other Alcohol abuse Social History Household Members: Spouse and Significant Other Housing: Apartment Alcohol intake: current Alcohol intake frequency: other Comment: 0.5-1 pint daily Patient Tobacco Use Status: Former Tobacco user Cigarettes Per Day: 20 Years Smoked: 15 e-Cigarette/Vaping Use: Never Used Substance Use Type: Marijuana service: No Current occupational status: disabled Sexual orientation: Unable to collect Gender identity: Unable to collect Cognitive needs: No Hearing needs: No Vision needs: No Questionnaire PHQ-9 Over the last 2 weeks, how often have you been bothered by any of the following problems? 1. Little interest or pleasure in doing things: not at all 2. Feeling down, depressed, or hopeless: not at all 3. Trouble falling or staying asleep, or sleeping too much: not at all 4. Feeling tired or having little energy: more than half the days 5. Poor appetite or overeating: not at all 6. Feeling bad about yourself - or that you are a failure or have let yourself or your family down: not at all 7. Trouble concentrating on things, such as reading the newspaper or watching television: not at all 9. Thoughts that you would be better off or of hurting yourself in some way: not at all Source: Developed by Drs. Mark Brink, Deborah Block, Gordy Valencia and colleagues, with an educational soledad from [employer]. Thrive Questionnaire Date Thrive assessed: 07/19/24 I am a: Patient What is your living situation today?: I have a steady place to live Within the past 12 months, did the food you bought not last and you didn't have the money to get more?: Never true Within the past 12 months, did you worry whether your food would run out before you got money to buy more?: Never true Do you have trouble paying for medicines?: No Do you have trouble getting transportation to medical appointments?: No Do you have trouble paying your heating and electricity bill?: No Do you have trouble taking care of your child, family member or friend?: No Do you have trouble with day-to-day activities such as bathing, preparing meals, shopping, managing finances, etc.?: No Are you currently unemployed and looking for a job?: I choose not to answer this question Are you interested in more education?: I choose not to answer this question Please select the resources that you would like help with: None Currently or been in a relationship where the following occur: I choose not to answer THRIVE Score: 0 AUDIT C Alcohol Use Questionnaire (AUDIT-C) 1. How often do you have a drink containing alcohol?: 2-3 times a week 2. How many drinks containing alcohol do you have on a typical day when you are drinking?: 3 or 4 3. How often do you have six or more drinks on one occasion?: Never Total Score: 4 NUNU-7 AMB Questionnaire NUNU-7 Date NUNU - 7 assessed: 12/07/23 Feeling nervous, anxious, or on edge: 0 = Not at all Not being able to stop or control worryin = Not at all Worrying too much about different things: 0 = Not at all Trouble relaxin = Not at all Being so restless that it is hard to sit still: 0 = Not at all Becoming easily annoyed or irritable: 0 = Not at all Feeling afraid as if something awful might happen: 0 = Not at all Total NUNU-7 score (0-4 normal; 5-9 mild; 10-14 moderate; 15-21 severe): 0 Source: Developed by Drs. Mark Brink, Deborah Block, Gordy Valencia and colleagues, with an educational soledad from [employer]. Review of Systems Const Denies chills, Denies fatigue, Denies fever(s), Denies headache(s) and Denies weakness ENT Denies dizziness and Denies headache(s) Card Denies dyspnea Resp Denies cough, Denies dyspnea, Denies wheezing and Denies other (shortness of breath) Musc Denies numbness and Denies tingling Neuro Denies dizziness, Denies headache(s), Denies numbness, Denies tingling and Denies weakness Psych Denies anxiety and Denies depression Endo Denies fatigue Aller/Immun Denies wheezing Physical exam (Primary Care) Vital Signs: Last Vital Signs Temp 97.8 F 10/11/24 14:59 Pulse 63 10/11/24 14:59 Resp 14 10/11/24 14:59 BP 114/64 10/11/24 14:59 Pulse Ox 96 10/11/24 14:59 Oxygen Delivery Method Room Air 10/11/24 14:59 BMI result Body Mass Index 36.1 Tobacco/Smoking Status: Tobacco use Status Tobacco use date assessed 12/07/23 10/11/24 14:55 Patient Tobacco Use Status Former Tobacco user 10/11/24 14:55 e-Cigarette/Vaping Use Never Used 10/11/24 14:55 Thrive Assessment: Date of Thrive Assessment Date Thrive assessed 07/19/24 10/11/24 14:55 Currently or been in a relationship where the following occur: I choose not to answer Const General: well developed; No acute distress Nutritional Appearance: well nourished Orientation/consciousness: patient oriented x3 HENMT Head: Yes normocephalic and Yes atraumatic Eyes General: appearance normal, both eyes and all related structures Pupils: Equal, round and reactive pupils present EOM: EOMs intact bilaterally Resp Effort & Inspection: normal respiratory effort Neuro General: patient oriented x3 and gait normal Cranial nerves: Yes Equal, round and reactive pupils present Psych Affect: normal affect Coding Level of Care Code Est Pt Level 3 (21186) Diagnoses High blood pressure I10 History of hepatitis C Z86.19 Alcoholic liver disease K70.9 Hypercholesterolemia E78.00 ETOH abuse F10.10 Screening for prostate cancer Z12.5 Assessment & Plan Assessment & Plan (1) High blood pressure: Code(s): I10 - Essential (primary) hypertension Category: Medical Plan: Blood?pressure?appears?well?controlled?today.??Goal?is?less?than?140/90 Continue?current?medication (2) History of hepatitis C: Code(s): Z86.19 - Personal history of other infectious and parasitic diseases Category: Medical Plan: Treated (3) Alcoholic liver disease: Code(s): K70.9 - Alcoholic liver disease, unspecified Category: Medical Plan: Patient?is?working?on?weaning?in?quitting?alcohol. Encouraged?this Follow-up?with?Gastroenterology?as?recommended (4) Hypercholesterolemia: Code(s): E78.00 - Pure hypercholesterolemia, unspecified Category: Medical Plan: Liver?enzymes?elevated Encouraged?weight?loss Will?continue?to?monitor (5) ETOH abuse: Code(s): F10.10 - Alcohol abuse, uncomplicated Category: Social Hx Plan: As?above,?encouraged?weaning?and?cessation (6) Screening for prostate cancer: Code(s): Z12.5 - Encounter for screening for malignant neoplasm of prostate Category: Medical Plan: PSA?is?within?normal?limits Continue?annual?screening
[2024-10-11 14:59] VITALS: BP 114/64; PULSE 63; RESP 14; TEMP 36.6; O2SAT 96; BMI 36.1
--- OUTSIDE RECORDS SUMMARY | 2024-10-11 16:55 | XMS_ITS | Clinical Summary ---
Author Organization [facility] Address [address] [place] [address] Care Team Providers Care Piler Name Role Phone Gisell Givens MD Primary Care Prov ider Allergies Active Allergy Reactions Criticality Noted Date Comments Bee Venom Protein (Honey Bee) Hives 2016 Medications Medication Sig Dispensed Refills Start Date End Date Status amLODIPine (NORVASC) 10 mg tablet Take 1 tablet (10 mg total) by mouth 1 (one) time each day. 11/09/2022 Active lisinopriL (PRINIVIL,ZESTRIL) 10 mg tablet Take 1 tablet (10 mg total) by mouth 1 (one) time each day. 09/11/2022 Active metoprolol succinate (TOPROL-XL) 25 mg 24 hr tablet Take 1 tablet (25 mg total) by mouth 1 (one) time each day. 12/03/2022 Active mirtazapine (REMERON) 15 mg tablet TAKE 1 TABLET BY MOUTH AT BEDTIME 09/11/2022 Active naproxen (NAPROSYN) 500 mg tablet Take 500 mg by mouth as needed. Active omeprazole (PriLOSEC) [address] capsule Take 1 capsule (20 mg total) by mouth 1 (one) time each day. 09/11/2022 Active traZODone (DESYREL) 100 mg tablet Take 1.5 tablets (150 mg total) by mouth at bedtime. 11/09/2022 Active Active Problems Problem Noted Date Diagnosed Date Alcohol abuse, in remission 09/29/2024 Depression 09/29/2024 Hypertension 09/29/2024 Overview (09/29/2024): Last Assessment & Plan: Patient with history of arterial hypertension. His blood pressure is noted to be borderline today. He is on amlodipine 10 mg orally daily and lisinopril 10 mg orally daily as well as metoprolol succinate 25 mg orally daily. He does not check his blood pressure at home. At this time, he is given a prescription to obtain a blood pressure cuff. He was given parameters to call the office if he continues to have borderline/elevated blood pressures as we could likely increase his lisinopril. Liver disease 09/29/2024 Ascending aorta dilatation 05/06/2022 Overview (09/29/2024): Last Assessment & Plan: Patient had recent echocardiogram in January 2022 that showed ascending aorta dilatation 4.5 cm and transverse aorta dilatation 3.8 cm. We will continue to monitor with periodic echocardiograms. NSVT (nonsustained ventricular tachycardia) 04/14 Overview (09/29/2024): Last Assessment & Plan: Patient underwent exercise treadmill stress test in December 2021 that showed frequent PACs and occasional PVCs with 2 4 beat runs of NSVT and a few ventricular couplets in recovery. He is on metoprolol succinate 25 mg orally daily. It was recommended he undergo a nuclear stress test, the patient has not done this as he felt anxious over it. I spent a considerable amount of time today explaining to him in detail what the nuclear stress test entails. At this time, patient agrees to undergo this test. This will likely have to be a pharmacologic protocol. Patient advised to seek emergency medical attention by calling 911 if they were to develop severe dyspnea, chest pain that did not resolve with rest or nitroglycerin, or if they were to faint. Chest pain 12/02/2021 Overview (09/29/2024): Last Assessment & Plan: The patient came for evaluation due to episodes of chest pain. The description of the symptoms is consistent with atypical chest pain. The patient has the following risk factors for coronary artery disease: Hypertension. Given the patient's age, gender, description of the symptoms, and risk factors for CAD, the patient has an intermediate risk for coronary artery disease. As such, will order a stress test for evaluation of the patient's chest pain. Dyspnea 12/02/2021 Premature atrial contractions 12/02/2021 Overview (09/29/2024): Last Assessment & Plan: Patient with history of premature atrial contractions. His palpitations have improved since starting metoprolol succinate 25 mg orally daily. He had recent echocardiogram that did not show any evidence of structural heart disease. His Holter monitor showed 8.2% burden of supraventricular beats and 4.2% burden of ventricular beats. We did discuss the fact that his heavy alcohol use could be contributing to his palpitations as well. He continues to drink 1 pint of vodka daily. He will consider stopping drinking. Alcohol abuse with alcohol-induced disorder 11/11 Benign prostatic hyperplasia with urinary freque ncy 09/20/2018 Chronic gout of right ankle 09/20/2018 Obesity (BMI 30-39.9) 09/20/2018 Hyperlipidemia 10/12/2017 Chronic hepatitis C without hepatic coma 017 Sleeping difficulty 08/20/2017 Immunizations Name Administration Dates Next Due Influenza Quadravalent, MDCK , 0.5ml, preservative free (Flucelvax) 6mo and older 09/20/2018 Pfizer SARS-CoV-2 COVID-19, mRNA, LNP-S, preservative free 01/25/2022 Tdap Tetanus diptheria acell ular pertussis (Boostrix; Adacel) 7yo and older 09/20/2018 Surgical History Surgery Date Site/Laterality Comments ROTATOR CUFF REPAIR PROCEDURE: HISTORICAL ROTATOR CUFF REPAIR Medical History Medical History Date Comments Hypertension DX:Hypertension Depression DX:Depression Alcohol abuse DX:Alcohol abuse Liver disease DX:Liver disease Drug abuse (CMS/HCC) DX:Drug abu se (HCC) Family History Medical History Relation Name Comments Hypertension Brother Pancreatic cancer Father Hypertension Mother Hypertension Sister Relation Name Status Comments Brother Father Mother Sister Social History Tobacco Use Types Packs/Day Years Used Date Smoking Tobacco: Former Smokeless Tobacco: Never Alcohol Use Standard Drinks/Week Comments Yes 0 (1 standard drink = 0.6 oz pur e alcohol) Sex and Gender Information Value Date Recorded Sex Assigned at Not on file Gender Identity Not on file Sexual Orientation Not on file Obstetrics History Last Filed Vital Signs Vital Sign Reading Time Taken Comments Blood Pressure 118/66 07/23/2022 8:17 AM EST Sit ting L Arm Pulse 51 07/23/2022 8:17 AM EST Temperature - - Respiratory Rate - - Oxygen Saturation - - Inhaled Oxygen Concentration - - Weight 97.5 kg (215 lb) 07/23/2022 8:17 AM EST Height 172.7 cm (5' 8 ) 07/23/2022 8:17 AM EST Body Mass Index 32.69 07/23/2022 8:17 AM EST Plan of Treatment Health Maintenance Due Date Last Done Comments Pneumococcal Vaccine: 65+ Years (1 of 2 - PCV) 1965 Pneumococcal Vaccine: Pediatrics (0 to 5 Years) and At-Risk Patients (6 to 64 Years) (1 of 2 - PCV) 1965 Hepatitis A Vaccines (1 of 2 - Risk 2-dose series) 1978 Zoster Vaccines (1 of 2) 2009 Hepatitis B Vaccines (1 of 3 - Risk 3-dose series) 2019 Abdominal Aortic Aneurysm (AAA) Screen 08/22/2022 Colorectal Cancer Screening: Colonoscopy 08/22/2022 12/03/2011 Depression Screening 08/22/2022 Social Influencers of Health Screening 08/22/2022 Hypertension/CHF/CAD Annual BMP Blood Test 05/22/2023 05/22/2022 COVID-19 Vaccine (4 - 2023-2 5 season) 2024 01/25/2022, 01/18/2021, 12/28/2020 Influenza Vaccine (#1) 2024 09/20/2018 Falls Risk Assessment 2024 Cholesterol Screening (Lipid Panel) 11/06/2026 11/06/2021 DTaP,Tdap,and Td Vaccines (2 - Td or Tdap) 09/20/2028 09/20/2018 RSV Immunization Patients 60 + Years Old (1 - 1-dose 75+ series) 2034 Hepatitis C Screening Completed 09/20/2018 HIB Vaccines Aged Out No longer eligi ble based on patient's age to complete this topic HPV Vaccines Aged Out No longer eligi ble based on patient's age to complete this topic IPV Vaccines Aged Out No longer eligi ble based on patient's age to complete this topic MMR Vaccines Aged Out No longer eligi ble based on patient's age to complete this topic Meningococcal ACWY Vaccine Aged Out N o longer eligible based on patient's age to complete this topic RSV Immunization Patients Under 20 months Aged Out No longer eligible b ased on patient's age to complete this topic Varicella Vaccines Aged Out No longer eligible based on patient's age to complete this topic Procedures Procedure Name Priority Date/Time Associated Diagnosis Comments ANNUAL BMP BLOOD TEST Routine 05/22/2022 LIPID PANEL Routine 11/06/2021 HEPATITIS C SCREENING Routine 09/20/2018 COLONOSCOPY Routine 12/03/2011 from Last 3 Months or Most Recently Relevant to Health Maintenance Results * Annual BMP Blood Test (05/22/2022) [facility] Annual BMP Blood Test abstracted Historical Provider MD SHIREEN QIU E * (ABNORMAL) Lipid panel (11/06/2021) [facility] LDL/HDL Ratio 5(A) 0 - 4 Triglycerides 150 0 - 150 mg/dL Cholesterol 122(A) 0 - 100 mg/dL HDL 43 40 mg/dL LDL Cholesterol 122(A) 0 - 100 mg/dL Blood Venous blood specimen / Unknown Historical Provider LAB BLOOD ORDERAB LES * Hepatitis C Screening (09/20/2018) [facility] Hepatitis C Screening abstracted Historical Provider MD SHIREEN QIU E * Colonoscopy (12/03/2011) [facility] Colonoscopy no interpretation , abstracted Anatomical Region Laterality Modality Other Historical Provider MD SHIREEN Henry from Last 3 Months or Most Recently Relevant to Health Maintenance Care Teams Piler Relationship Specialty Start Date End Date Gisell Givens MD PCP - General Internal Medicine 03/24/21
--- OUTSIDE RECORDS SUMMARY | 2024-10-11 16:55 | XMS_ITS | Encounter Summary ---
Author Organization [facility] Address [address] [place] [address] Care Team Providers Care Section Repairer Name Role Phone Unavailable Primary Care Provider Unavailabl e Encounter Details Date Type Department Care Team (Latest Contact Info) Description 02/15/2019 Abstract C CONVERSIONS Dental, Provider, DDS Social History Tobacco Use Types Packs/Day Years Used Date Smoking Tobacco: Never Assessed Sex and Gender Information Value Date Recorded Sex Assigned at Male 07/13/2022 10:14 AM EDT Legal Sex Male 10:14 AM EDT Gender Identity Male 07/13/2022 10:14 AM EDT Sexual Orientation Straight 07/13/2022 10 :14 AM EDT documented as of this encounter Plan of Treatment Not on file documented as of this encounter Visit Diagnoses Not on filedocumented in this encounter
--- OUTSIDE RECORDS SUMMARY | 2024-10-11 16:55 | XMS_ITS | Clinical Summary ---
Author Organization [facility] Address [address] [place] [address] [address] [place] [address] Care Team Providers Care Call Or Contact Centre Manager Name Role Phone Unavailable Primary Care Provider Unavailabl e Social History Tobacco Use Types Packs/Day Years Used Date Smoking Tobacco: Never Assessed Sex and Gender Information Value Date Recorded Sex Assigned at Male 07/13/2022 10:14 AM EDT Legal Sex Male 10:14 AM EDT Gender Identity Male 07/13/2022 10:14 AM EDT Sexual Orientation Straight 07/13/2022 10 :14 AM EDT Last Filed Vital Signs Vital Sign Reading Time Taken Comments Blood Pressure 130/72 09/18/2019 12:01 AM EST Pulse - - Temperature - - Respiratory Rate - - Oxygen Saturation - - Inhaled Oxygen Concentration - - Weight - - Height - - Body Mass Index - - Plan of Treatment Health Maintenance Due Date Last Done Comments CT Colonography 1959 Colonoscopy 1959 Colorectal Cancer Screening 1959 Depression Screening 1959 FIT DNA/Cologuard 1959 FIT 1959 FOBT 1959 Lipid Panel 1959 Sigmoidoscopy 1959 Alcohol/Substance Use Screening 1971 Tobacco Screening 1971 DTaP/Tdap/Td Vaccines (1 - Tdap) 1978 Zoster Vaccines (1 of 2) 2009 COVID-19 Vaccine ( - 2023-2 5 season) 2024 Influenza Vaccine (#1) 2024 Pneumococcal Vaccine: 50+ Ye ars (1 of 1 - PCV) 2024 RSV Patients and Pa tients Aged 60 years or older (1 - 1-dose 75+ series) 2034 HIB Vaccines Aged Out No longer eligi ble based on patient's age to complete this topic HPV Vaccines Aged Out No longer eligi ble based on patient's age to complete this topic Hepatitis A Vaccines Aged Out No long er eligible based on patient's age to complete this topic Hepatitis B Vaccines Aged Out No long er eligible based on patient's age to complete this topic IPV Vaccines Aged Out No longer eligi ble based on patient's age to complete this topic Meningococcal Vaccine Aged Out No piotr danay eligible based on patient's age to complete this topic Pneumococcal Vaccine: Pediat rics (0 to 5 Years) and At-Risk Patients (6 to 49) Years) Aged Out No longer eligible b ased on patient's age to complete this topic RSV under 20 months Aged Out No longe r eligible based on patient's age to complete this topic Rotavirus Vaccines Aged Out No longer eligible based on patient's age to complete this topic
--- OUTSIDE RECORDS SUMMARY | 2024-10-11 16:55 | XMS_ITS | Encounter Summary ---
Author Organization [facility] Address [address] [place] [address] Care Team Providers Care Yarn Carrier Name Role Phone Unavailable Primary Care Provider Unavailabl e Encounter Details Date Type Department Care Team (Latest Contact Info) Description 03/18/2021 Abstract [facility] CONVERSIONS Dental, Provider, DDS Social History Tobacco [...]
--- OUTSIDE RECORDS SUMMARY | 2024-10-11 16:55 | XMS_ITS | Clinical Summary ---
Author Organization [facility] Facility Address [address] [place] [address] Care Team Providers Care Furniture Sales Associate Name Role Phone Gisell Givens MD Primary Care Pr ovider Allergies Active Allergy Reactions Criticality Noted Date Comments Bee Venom Hives 08/20/2017 Medications amLODIPine (NORVASC) 10 MG tablet Take 10 mg by mouth 11/20/2021 Active lisinopril 10 MG tablet Take 10 mg by mouth Active mirtazapine (REMERON) 15 MG tablet Take 1 tablet by mouth at bed time 04/14/2021 Active omeprazole (PriLOSEC) [address] capsule Take 1 capsule by mouth 1 (one) time each day 11/06/2021 Active traZODone (DESYREL) 100 MG tablet 1/2-1 tab nightly Active naproxen (NAPROSYN) 500 MG tablet Take 500 mg by mouth in the morning and 500 mg in the evening. Take with meals. Active Active Problems Problem Noted Date Diagnosed Date Hypertension 12/11/2021 Overview (12/11/2021): Last Assessment & Plan: The patient has a history of arterial hypertension. The patient's blood pressure today was noted to be well controlled. We'll continue the current antihypertensive medication regimen. Chest pain 12/02/2021 Overview (12/11/2021): Last Assessment & Plan: The patient came [...] patient's chest pain. Dyspnea 12/02/2021 Premature atrial contraction 12/02/2021 Overview (12/11/2021): Last Assessment & Plan: The patient was referred to our office due to an abnormal EKG. I reviewed the EKG from 11/06/2021 and it showed evidence of a normal sinus rhythm with frequent PACs. No evidence of high-grade AV block noted. His heart rate was noted to be 45 bpm at that time, likely owing to the significant post premature beat pauses in the setting of his frequent PVCs. Today in our office, we obtain a new EKG that also showed a normal sinus rhythm with frequent PACs. His heart rate today was noted to be 70 bpm. The patient does mention that he has started drinking again after being sober for 8 years. He drinks 1 pint of alcohol every day. Sometimes, he admits to drinking more. I had an extensive conversation with the patient regarding his frequent PACs s and alcohol intake. There is scientific evidence that alcohol is one of the triggers for development of frequent PACs. As such, instructed the patient to cut down on his alcohol drinking. In the meantime, I will order a Holter monitor to evaluate his PAC burden. I will also order an echocardiogram to evaluate for any underlying structural heart disease. Acute nontraumatic kidney injury 11/30/2021 Bradycardia 11/30/2021 Hypotension, not otherwise specified 11/30/2021 Alcohol abuse with alcohol-induced disorder 11/11 Alcohol abuse, in remission 11/27/2021 Depressive disorder 11/27/2021 Hypertension 11/27/2021 Liver disease 11/27/2021 Body mass index 30+ - obesity 09/20/2018 Chronic gouty arthritis 09/20/2018 Hyperlipidemia 10/12/2017 Resolved Problems Problem Noted Date Diagnosed Date Resolved Date Difficulty sleeping 08/20/2017 12/11/19 22 Immunizations Name Administration Dates Next Due Influenza, MDCK, PF, Quadrivalent 09/20/2018 Tdap 09/20/2018 Family History Medical History Relation Comments Hypertension Brother 2 Brother Autoimmune disease Father Gout Father Cancer Maternal Grandfather Dementia Maternal Grandmother Stroke Paternal Grandmother Relation Status Comments Brother Alive Father Maternal Grandfather Maternal Grandmother Mother Alive Paternal Grandmother Social History Tobacco Use Types Packs/Day Years Used Date Smoking Tobacco: Former Smokeless Tobacco: Former Alcohol Use Standard Drinks/Week Comments Yes 5 (1 standard drink = 0.6 oz pur e alcohol) Sex and Gender Information Value Date Recorded Sex Assigned at Not on file Legal Sex Male 11:34 AM EDT Gender Identity Not on file Sexual Orientation Not on file Last Filed Vital Signs Vital Sign Reading Time Taken Comments Blood Pressure 120/60 12/11/2021 11:23 AM EDT Pulse 78 12/11/2021 11:23 AM EDT Temperature - - Respiratory Rate - - Oxygen Saturation 95% 12/11/2021 11:23 AM EDT Inhaled Oxygen Concentration - - Weight 99.2 kg (218 lb 9.6 oz) 12/11/2021 11:23 AM EDT Height - - Body Mass Index - - Plan of Treatment Health Maintenance Due Date Last Done Comments Colorectal Cancer Screening: Annual FOBT 2008 Colorectal Cancer Screening: Colonoscopy 2008 Colorectal Cancer Screening: Sigmoidoscopy 2008 Influenza Vaccine (#1) 2024 09/20/2018 Pneumococcal Vaccine: 65+ Ye ars (1 of 1 - PCV) 2024 Hepatitis B Vaccine Aged Out No longe r eligible based on patient's age to complete this topic Pneumococcal Vaccine: Pediat rics (0 to 5 Years) and At-Risk Patients (6 to 64 Years) Aged Out No longer eligi ble based on patient's age to complete this topic [place] [address] [address] [place] [address] PROVIDER [facility] [employer] [facility] Care Teams Furniture Sales Associate Relationship Specialty Start Date End Date Gisell Givens MD PCP - General Internal Medicine 12/11/21
== END 2024-10-11 15:27 | disposition home or self-care (01) ==
PROVIDERS: PCP Family Medicine; Visit Provider Family Medicine
DX: I10 Essential (primary) hypertension (principal); Z86.19 Personal history of other infectious and parasitic diseases; K70.9 Alcoholic liver disease, unspecified; E78.00 Pure hypercholesterolemia, unspecified; F10.10 Alcohol abuse, uncomplicated; Z12.5 Encounter for screening for malignant neoplasm of prostate

== ENCOUNTER → 2024-10-11 14:43 | Outpatient (BNVA) | payer BC, SELFPAY | PROVIDERS: PCP Family Medicine; Visit Provider Family Medicine ==

== ENCOUNTER 2024-11-21 05:56 | Day surgery (SDC) | payer BC, SELFPAY ==
--- OUTSIDE RECORDS SUMMARY | 2024-11-07 07:38 | XMS_ITS | Clinical Summary ---
Author Organization [facility] Facility Address [address] [place] [address] Care Team Providers Care City Planning Teacher Name Role Phone Gisell Givens MD Primary [...] patient's age to complete this topic [place] [address] PROVIDER [facility] [employer] PROVIDER [facility] Care Teams City Planning Teacher Relationship Specialty Start Date End Date Gisell Givens MD PCP - General Internal Medicine 12/11/21
--- OUTSIDE RECORDS SUMMARY | 2024-11-07 07:38 | XMS_ITS | Encounter Summary ---
Author Organization [facility] Address [address] [place] [address] Care Team Providers Care Broach Grinder Name Role Phone Jeffrey Whyte MD Unavailable [phone] Pending [facility], Pcp Primary Care Provider Mary Anne Gross NP Unavailable [phone] Encounter Details Date Type Department Care Team Description 09/17/2022 SCAN Medical Records [address] [place] [address] Abstract, Provider Social History Tobacco Use Types Packs/Day Years Used Date Smoking Tobacco: Former Cigarettes Smokeless Tobacco: Never Comments:quit 20 years ago Alcohol Use Standard Drinks/Week Comments Yes 0 (1 standard drink = 0.6 oz pur e alcohol) patient states he drinks shots Sex Assigned at Date Recorded Not on file Job Start Date Occupation Industry Not on file Not on file Not on file documented as of this encounter Plan of Treatment Not on file documented as of this encounter Procedures Procedure Name Priority Date/Time Associated Diagnosis Comments OUTSIDE LAB Routine 09/17/2022 OUTSIDE LAB Routine 09/17/2022 documented in this encounter Results * OUTSIDE LAB (09/17/2022) Provider Abstract LAB * OUTSIDE LAB (09/17/2022) Provider Abstract LAB documented in this encounter Visit Diagnoses Not on filedocumented in this encounter Care Teams Broach Grinder Relationship Specialty Start Date End Date Community, [facility] [place] [address] PCP - General Internal Medicine 09/11/22 Jeffrey Whyte MD [address] [place] [address] Dr [address] [place] [address] Specialist Cardiovascular Disease 12/29/21 Mary Anne Valdez, JESUS [address] [place] [address] Cardiology 01/20/23 documented as of this encounter
--- OUTSIDE RECORDS SUMMARY | 2024-11-07 07:38 | XMS_ITS | Encounter Summary ---
Author Organization [facility] Address [address] [facility] 7[address] [place] [address] Care Team Providers Care Specialty Cook Name Role Phone Unavailable Primary Care Provider [...]
--- OUTSIDE RECORDS SUMMARY | 2024-11-07 07:38 | XMS_ITS | Encounter Summary ---
Author Organization [facility] Address [address] [place] [address] Care Team Providers Care Director Loss Prevention Name Role Phone Milan Turner Primary Care Provider Unavailab latrell Givens Ch MD Primary Care Provider [phone] Jeffrey Whyte MD Unavailable [phone] [facility], Pcp Primary Care Provider UnavailMary Anne Black NP Unavailable [phone] Reason for Visit * Reason Onset Date Comments REFERRAL 11/14/2021 Encounter Details Date Type Department Care Team Description 11/14/2021 Telephone Gastroenterology - [address] [place] [address] Corie Gray PA-C REFERRAL Social History Tobacco Use Types Packs/Day Years Used Date Smoking Tobacco: Former Smokeless Tobacco: Never Comments:quit 20 years ago Alcohol Use Standard Drinks/Week Comments No 0 (1 standard drink = 0.6 oz pure alcohol) will sometimes drink a few beers Sex Assigned at Date Recorded Not on file Job Start Date Occupation Industry Not on file Not on file Not on file COVID-19 Exposure Response Date Recorded In the last month, have you been in contact with someone who was confirmed or suspected to have Coronavirus / COVID-19? No / Unsure 11/06/2021 1:23 PM EST documented as of this encounter Miscellaneous Notes * Telephone Encounter - Nela Flores - 11/14/2021 8:03 AM EST All attempts have been made to schedule patient for a GI consult have been exhausted. No returned calls. Mailing letter to patient. documented in this encounter Plan of Treatment Not on file documented as of this encounter Visit Diagnoses Not on filedocumented in this encounter Care Teams Director Loss Prevention Relationship Specialty Start Date End Date Milan Turner PCP - General Internal Medicine 09/13/21 11/23/21 Jagjit Givens, [address] [place] [address] PCP - General Internal Medicine 11/24/21 09/09/22 [facility], [address] [place] [address] PCP - General Internal Medicine 09/11/22 Jeffrey Whyte MD [address] [place] [address] [place] [address] Specialist Cardiovascular Disease 12/29/21 Mary Anne Valdez NP [address] [place] [address] [address] [place] [address] Cardiology 01/20/23 documented as of this encounter
--- OUTSIDE RECORDS SUMMARY | 2024-11-07 07:38 | XMS_ITS | Encounter Summary ---
Author Organization [facility] Address [address] [facility] 7t [place] [address] Care Team Providers Care Manager Biostatistics Name Role Phone Unavailable Primary Care Provider [...]
--- OUTSIDE RECORDS SUMMARY | 2024-11-07 07:38 | XMS_ITS | Encounter Summary ---
Author Organization [facility] Address [address] [place] [address] Care Team Providers Care Community Relations Officer Name Role Phone Tori [place] MD Primary Care Provider Unavailable Jagjit Givens MD Primary Care Provider [phone] Milan Turner Primary Care Provider Unavailab latrell Givens Ch MD Primary Care Provider [phone] Jeffrey Whyte MD Unavailable [phone] [facility], Pcp Primary Care Provider UnavailMary Anne Black NP Unavailable [phone] Encounter Details Date Type Department Care Team Description 10/10/2018 Orders Only Medical Records [address] [place] [address] Abstract, Provider Social History Tobacco Use Types [...] Name Priority Date/Time Associated Diagnosis Comments OUTSIDE ULTRASOUND Routine 10/09/2018 documented in this encounter Results * OUTSIDE ULTRASOUND (10/09/2018) Provider Abstract RADIOLOGY documented in this encounter Visit Diagnoses Not on filedocumented in this encounter Care Teams Community Relations Officer Relationship Specialty Start Date End Date Tori [place] MD PCP - General Internal Medicine 08/11/1708/03 Jagjit Givens, [address] [place] [address] PCP - General Internal Medicine 03/24/21 09/12/21 Milan Turner [address] [place] [address] PCP - General Internal Medicine 09/13/21 11/23/21 Jagjit Givens MD [address] [place] [address] PCP - General Internal Medicine 11/24/21 09/09/22 [facility], Pcp [address] [facility] [place] [address] PCP - General Internal Medicine 09/11/22 Jeffrey Whyte MD [address] [place] [address] [place] [address] Specialist Cardiovascular Disease 12/29/21 Mary Anne Valdez NP [address] [place] [address] [address] Villareal [address] [place] [address] Cardiology 01/20/23 documented as of this encounter
--- OUTSIDE RECORDS SUMMARY | 2024-11-07 07:38 | XMS_ITS | Encounter Summary ---
Author Organization [facility] Address [address] [place] [address] Care Team Providers Care Assembler Wet Wash Name Role Phone Tori Wells MD Primary Care Provider Unavailable Jagjit Givens MD Primary Care Provider [phone] Milan Turner Primary Care Provider Unavailab latrell Givens Ch MD Primary Care Provider [phone] Jeffrey Whyte MD Unavailable [phone] [facility], [facility] Primary Care Provider UnavailMary Anne Black NP Unavailable [phone] Encounter Details Date Type Department Care Team Description 06/12/2011 SCAN Medical Records [address] [place] [address] Abstract, Provider Social History Tobacco Use Types Packs/Day Years Used Date Smoking Tobacco: Never Assessed Sex Assigned at Date Recorded Not on file Job Start Date Occupation Industry Not on file Not on file Not on file documented as of this encounter Plan of Treatment Not on file documented as of this encounter Procedures Procedure Name Priority Date/Time Associated Diagnosis Comments OUTSIDE CT Routine 06/12/2011 documented in this encounter Results * OUTSIDE CT (06/12/2011) Provider Abstract RADIOLOGY documented in this encounter Visit Diagnoses Not on filedocumented in this encounter Care Teams Assembler Wet Wash Relationship Specialty Start Date End Date Tori Wells MD PCP - General Internal Medicine 08/11/1708/03 Jagjit Givens, [address] [place] [address] PCP - General Internal Medicine 03/24/21 09/12/21 Milan Turner [address] [place] [address] PCP - General Internal Medicine 09/13/21 11/23/21 Jagjit Givens MD [address] [place] [address] PCP - General Internal Medicine 11/24/21 09/09/22 [facility], Pcp [address] [place] [address] [place] [address] PCP - General Internal Medicine 09/11/22 Jeffrey Whyte MD [address] [place] [address] [place] [address] Specialist Cardiovascular Disease 12/29/21 Mary Anne Valdez, JESUS [address] [place] [address] [address]al [address] [place] [address] Cardiology 01/20/23 documented as of this encounter
--- OUTSIDE RECORDS SUMMARY | 2024-11-07 07:38 | XMS_ITS | Encounter Summary ---
Author Organization [facility] Address [address] [place] [address] Care Team Providers Care Smoke And Flame Specialist Name Role Phone Tori Wells MD Primary Care Provider Unavailable Jagjit Givens MD Primary Care Provider [phone] Milan Turner Primary Care Provider Unavailab Jagjit Givens MD Primary Care Provider [phone] Jeffrey Whyte MD Unavailable [phone] [facility] Primary Care Provider UnavailMary Anne Black NP Unavailable [phone] Encounter Details Date Type Department Care Team Description 08/12/2017 Release of Information Medical Records [address] [place] [address] Abstract, Provider Social History Tobacco Use Types Packs/Day Years Used Date Smoking Tobacco: Never Assessed Sex Assigned at Date Recorded Not on file Job Start Date Occupation Industry Not on file Not on file Not on file documented as of this encounter Plan of Treatment Not on file documented as of this encounter Visit Diagnoses Not on filedocumented in this encounter Care Teams Smoke And Flame Specialist Relationship Specialty Start Date End Date Tori Wells MD PCP - General Internal Medicine 08/11/1708/03 Jagjit Givens MD [address] [place] [address] PCP - General Internal Medicine 03/24/21 09/12/21 Milan Turner [address] [place], [place] PCP - General Internal Medicine 09/13/21 11/23/21 Jagjit Givens, [address] [facility] [place] [address] PCP - General Internal Medicine 11/24/21 09/09/22 [facility], Pcp 2 [facility] [place] [address] PCP - General Internal Medicine 09/11/22 Jeffrey Whyte MD [address] [place] [address] [place] [address] Specialist Cardiovascular Disease 12/29/21 Mary Anne Valdez, JESUS [address] [place] [address] [address] Villareal [address] [place] [address] Cardiology 01/20/23 documented as of this encounter
--- OUTSIDE RECORDS SUMMARY | 2024-11-07 07:38 | XMS_ITS | Encounter Summary ---
Author Organization [facility] Address [address] [place] [address] Care Team Providers Care Laboratory Worker Name Role Phone Jagjit Givens MD Primary Care Provider [phone] Jeffrey Whyte MD Unavailable [phone] [facility], Pcp Primary Care Provider Mary Anne Gross NP Unavailable [phone] Encounter Details Date Type Department Care Team Description 12/12/2021 SCAN Medical Records [address] [place] [address] Abstract, Provider Social History Tobacco Use Types [...] Exposure Response Date Recorded In the last 10 days, have yo u been in contact with someone who was confirmed or suspected to have Coronavirus/COVID-19? No / Unsure 12/02/2021 2:44 PM EDT documented as of this encounter Plan of Treatment Not on file documented as of this encounter Visit Diagnoses Not on filedocumented in this encounter Care Teams Laboratory Worker Relationship Specialty Start Date End Date Jagjit Givens MD [address] [place] [address] PCP - General Internal Medicine 11/24/21 09/09/22 [facility], Pcp [address] [place] [address] Dr Mono [address] [place] [address] PCP - General Internal Medicine 09/11/22 Jeffrey Whyte MD [address] [place] [address] [place] [address] Specialist Cardiovascular Disease 12/29/21 Mary Anne Valdez NP [address] [place] [address] Drive Mono [address] [place] [address] Cardiology 01/20/23 documented as of this encounter
--- OUTSIDE RECORDS SUMMARY | 2024-11-07 07:38 | XMS_ITS | Encounter Summary ---
Author Organization [facility] Address [address] [place] [address] Care Team Providers Care Tile Trimmer Name Role Phone Jeffrey Whyte MD Unavailable [phone] [facility], Pcp Primary Care Provider UnavailMary Anne Black NP Unavailable [phone] Reason for Visit * Reason Comments E-prescribe Rx Request Encounter Details Date Type Department Care Team Description 03/28/2023 Refill Adult Medicine - [place] [address] [place] [address] Jagjit Givens MD [address] [place] [address] E-prescribe Rx Request Social History Tobacco Use Types Packs/Day Years [...] on file documented as of this encounter Miscellaneous Notes * Telephone Encounter - Zahraa Victor - 03/29/2023 1:52 PM EDT Pcp community documented in this encounter Plan of Treatment Not on file documented as of this encounter Visit Diagnoses Not on filedocumented in this encounter Care Teams Tile Trimmer Relationship Specialty Start Date End Date [facility], Pcp [place] [address] PCP - General Internal Medicine 09/11/22 Jeffrey Whyte MD [address] [place] [address] Specialist Cardiovascular Disease 12/29/21 Mary Anne Valdez NP [address] [place] [address] [address] Cardiology 01/20/23 documented as of this encounter
--- OUTSIDE RECORDS SUMMARY | 2024-11-07 07:38 | XMS_ITS | Encounter Summary ---
Author Organization [facility] Address [address] [place] [address] Care Team Providers Care Critical Care Educator Name Role Phone Jagjit Givens MD Primary Care Provider [phone] Jeffrey Whyte MD Unavailable [phone] [facility]cp Primary Care Provider UnavailMary Anne Black NP Unavailable [phone] Encounter Details Date Type Department Care Team Description 12/24/2021 Telephone Cardio PVC [facility] [address] [facility] [address] [place] [address] Jen Elias PA Social History Tobacco Use Types Packs/Day Years [...] suspected to have Coronavirus/COVID-19? No / Unsure 12/19/2021 12:34 PM EDT documented as of this encounter Miscellaneous Notes * Telephone Encounter - SHOBHA Vila-Traci - 12/24/2021 9:02 AM EDT Reviewed ETT and discussed with Dr. Whyte-Radha; recommend proceeding with nuclear stress test as patient had a couple 4 beat runs of NSVT in recovery with his ETT. Called patient; left voicemail. Order placed for nuclear stress test ON meds. documented in this encounter Plan of Treatment Not on file documented as of this encounter Results * NUCLEAR STRESS WITH EXERCISE, REGADENOSON, OR DOBUTAMINE PER PROTOCOL (07/23/2022) Impressions [facility] - 07/23/2022 [facility] [address] [place] [address], [place] [address] TEL: ??FAX: Name: Kaiden Rm ? Date of exam: 07/23/22 : 1960 ?Gender: Male ? Ordering provider: Jen Elias PA-C PCP: ??Gisell Givens Blood pressure 118/66, pulse 51, height 5' 8 (1.727 m), weight 215 lb (97.5 kg), SpO2 98 %. Body mass index is 32.69 kg/m??. TEST TYPE: Regadenoson Nuclear Stress Test Performed by: Jen Elias PA-C INDICATION/HISTORY: Patient with history of chest pain. ??He underwent exercise treadmill stress test in December 2021 which showed two 4 beat runs of NSVT. CARDIAC RISK FACTORS: Obesity, HTN, alcohol use, former smoker PRIOR CARDIAC EVENTS: None TECHNIQUE: After a 10 to 20 second injection of 0.4 mg IV Regadenoson, followed by a 5 cc normal saline bolus, the patient received ??24.9mCi of IV Tc 99m Tetrofosmin for a gated SPECT acquisition 30 minutes post stress. Same day rest SPECT imaging with 9.2mCi of ??IV Tc99m Tetrofosmin was performed. Computerized reconstruction of the images was performed for analysis. CT imaging was performed for attenuation correction purposes only STRESS TEST: The patient underwent a Regadenoson nuclear stress test, while walking slowly 1mph on the treadmill, with physiologic response to Regadenoson. Resting BP: 118/66 with HR of : 51. ??Post Injection BP: 158/72 with a HR of: 100. Symptoms: None Hemodynamic response: Physiologic Baseline ECG: Sinus bradycardia, nonspecific T wave abnormality Stress ECG: Nondiagnostic in the setting of pharmacologic stress. ??No EKG changes meeting strict ischemic criteria. Arrhythmias: Occasional PVCs Test terminated due to: Completion of protocol Electronically Signed By: Jen Elias PA-C 07/23/2022 10:20 AM SCAN FINDINGS AND IMPRESSION: Raw imaging reveals diaphragmatic attenuation artifact of the inferior wall. Nuclear imaging of the left ventricle reveals normal (90 ml) in end diastole. Myocardial perfusion imaging of the left ventricle reveals a slight decrease in counts in the basal to mid inferior wall on both rest and poststress imaging. CT attenuation correction was applied to the study which normalized the previously mentioned perfusion abnormality. ??Taken together, this likely represents diaphragmatic attenuation artifact. Gated SPECT imaging was performed which demonstrated normal left ventricular systolic function. Regional wall motion is normal. The calculated LVEF is greater than 75%. ??There is no obvious visual TID. IMPRESSION: Negative Regadenoson ??stress test with nuclear imaging. ?? Nuclear imaging revealed normal perfusion after attenuation correction was applied. There is no visual TID. Right ventricle appears mildly dilated but with grossly normal systolic function. Gated SPECT imaging was performed and revealed normal left ventricular systolic function and regional wall motion with an LVEF of greater than 70%. Electronically Signed By: Celina Burrell MD 07/24/2022 11:08 AM Jen [facility] documented in this encounter Visit Diagnoses Diagnosis Other chest pain- Primary Nonsustained ventricular tachycardia (HCC) Paroxysmal ventricular tachycardia Other chest pain Nonsustained ventricular tachycardia (HCC) Paroxysmal ventricular tachycardia documented in this encounter Care Teams Critical Care Educator Relationship Specialty Start Date End Date Jagjit Givens MD [address] [place] [address] PCP - General Internal Medicine 11/24/21 09/09/22 [facility] [address] [place] [address] [place] [address] PCP - General Internal Medicine 09/11/22 Jeffrey Whyte MD [address] [place] [address] [place] [address] Specialist Cardiovascular Disease 12/29/21 Mary Anne Valdez NP [address] [place] [address] Rodrick Villareal [address] [place] [address] Cardiology 01/20/23 documented as of this encounter
--- OUTSIDE RECORDS SUMMARY | 2024-11-07 07:38 | XMS_ITS | Encounter Summary ---
Author Organization [facility] Address [address] [place] [address] Care Team Providers Care Fabrication Engineer Name Role Phone Tori Wells MD Primary Care Provider Unavailable Jagjit Givens MD Primary Care Provider [phone] Milan Turner Primary Care Provider Unavailab latrell Givens Ch MD Primary Care Provider [phone] Jeffrey Whyte MD Unavailable [phone] [facility] Primary Care Provider UnavailMary Anne Black NP Unavailable [phone] Encounter Details Date Type Department Care Team Description 11/14/2011 SCAN Medical Records [address] [place] [address] Abstract, Provider Social History Tobacco Use Types Packs/Day Years Used Date Smoking Tobacco: Never Assessed Sex Assigned at Date Recorded Not on file Job Start Date Occupation Industry Not on file Not on file Not on file documented as of this encounter Plan of Treatment Not on file documented as of this encounter Procedures Procedure Name Priority Date/Time Associated Diagnosis Comments OUTSIDE MRI/MRA Routine 11/14/2011 documented in this encounter Results * OUTSIDE MRI/MRA (11/14/2011) Provider Abstract RADIOLOGY documented in this encounter Visit Diagnoses Not on filedocumented in this encounter Care Teams Fabrication Engineer Relationship Specialty Start Date End Date Tori Wells MD PCP - General Internal Medicine 08/11/1708/03 Jagjit Givens, [address] [place], [place] [address] PCP - General Internal Medicine 03/24/21 09/12/21 Milan Turner [address] [place] [address] PCP - General Internal Medicine 09/13/21 11/23/21 Jagjit Givens MD [address] [place] [address] PCP - General Internal Medicine 11/24/21 09/09/22 [facility], Pcp [address] [place] [address] [place] [address] PCP - General Internal Medicine 09/11/22 Jeffrey Whyte MD [address] [place] [address] [place] [address] Specialist Cardiovascular Disease 12/29/21 Mary Anne Valdez NP [address] [place] [address] Rodrick Villareal [address] [place] [address] [place] [address] Cardiology 01/20/23 documented as of this encounter
--- OUTSIDE RECORDS SUMMARY | 2024-11-07 07:38 | XMS_ITS | Encounter Summary ---
Author Organization [facility] Address [address] [place] [address] Care Team Providers Care Sand Cutter Operator Name Role Phone Jagjit Givens MD Primary Care Provider [phone] Milan Turner Primary Care Provider Unavailab latrell Givens Ch MD Primary Care Provider + [phone] Jeffrey Whyte MD Unavailable [phone] [facility] Primary Care Provider UnavailMary Anne Black NP Unavailable [phone] Reason for Visit * Reason Onset Date Comments refill request 07/08/2021 Encounter Details Date Type Department Care Team Description 07/08/2021 Refill Adult Medicine - [place] [address] [place] [address] Jagjit Givens MD [address] [place] [address] refill request Social History Tobacco Use Types Packs/Day Years [...] encounter Miscellaneous Notes * Telephone Encounter - Malissa Bill - 07/08/2021 8:52 AM EDT Patient would like script to be: E-PRESCRIBED/FAXED TO PHARMACY ?? WHEN WAS THE PATIENT'S LAST APPOINTMENT IN ADULT MEDICINE? 04/14/21 ?? WHEN WAS THE LAST TIME THE PATIENT SAW THEIR PCP? rnp ?? Does patient have an upcoming appointment? Yes 10/15/21 ?? (THE MEDICATION REQUESTED IS ON THE MED LIST ABOVE) All of the medications requested were on the CURRENT MEDS list ?? Did you check the Pharmacy information above?: YES ?? Patient wants: 90 -day supply ?? Is this a mail order prescription request ? NO ?? If the refill is from a FAXED refill request what is the RX # listed on the fax? N/A ?? Patients current insurance carrier is: Payor: MEDICARE-[employer] / Plan[place] / Product Type: MEDICARE [id number] ? documented in this encounter Plan of Treatment Not on file documented as of this encounter Visit Diagnoses Not on filedocumented in this encounter Care Teams Sand Cutter Operator Relationship Specialty Start Date End Date Jagjit Givens MD [address] [place] [address] PCP - General Internal Medicine 03/24/21 09/12/21 Milan Turner [address] [place] [address] PCP - General Internal Medicine 09/13/21 11/23/21 Jagjit Givens MD [address] [place] [address] PCP - General Internal Medicine 11/24/21 09/09/22 [facility], [address] [place] [address] PCP - General Internal Medicine 09/11/22 Jeffrey Whyte MD [address] [place] [address] Dr Villareal [address] [place] [address] Specialist Cardiovascular Disease 12/29/21 Mary Anne Valdez NP [address] [place] [address] [address] Cardiology 01/20/23 documented as of this encounter
--- OUTSIDE RECORDS SUMMARY | 2024-11-07 07:38 | XMS_ITS | Encounter Summary ---
Author Organization [facility] Address [address] [place] [address] Care Team Providers Care Health Care Liaison Name Role Phone Tori Wells MD Primary Care Provider Unavailable Jagjit Givens MD Primary Care Provider [phone] Milan Turner Primary Care Provider Unavailab latrell Givens Ch MD Primary Care Provider [phone] Jeffrey Whyte MD Unavailable [phone] [facility] Primary Care Provider UnavailMary Anne Black NP Unavailable [phone] Encounter Details Date Type Department Care Team Description 10/25/2018 Process Pumper Report Medical Records [address] [place] [address] Leland Vigil MD Social History Tobacco Use Types Packs/Day Years [...] on filedocumented in this encounter Care Teams Health Care Liaison Relationship Specialty Start Date End Date Tori Wells MD PCP - General Internal Medicine 08/11/1708/03 Jagjit Givens MD [address] [place], [place] [address] PCP - General Internal Medicine 03/24/21 09/12/21 Milan Turner [address] [place] [address] PCP - General Internal Medicine 09/13/21 11/23/21 Jagjit Givens MD [address] [place] [address] PCP - General Internal Medicine 11/24/21 09/09/22 [facility], Pcp [address] [facility] [place] [address] PCP - General Internal Medicine 09/11/22 Jeffrey Whyte MD [address] [place] [address] [place] [address] Specialist Cardiovascular Disease 12/29/21 Mary Anne Valdez NP [address] [place] [address] [address] Cardiology 01/20/23 documented as of this encounter
--- OUTSIDE RECORDS SUMMARY | 2024-11-07 07:38 | XMS_ITS | Encounter Summary ---
Author Organization [facility] Address [address] [place] [address] Care Team Providers Care Kitchen Help Handyman Name Role Phone Tori Wells MD Primary Care Provider Unavailable Jagjit Givens MD Primary Care Provider [phone] Milan Turner Primary Care Provider Unavailab latrell Givens Ch MD Primary Care Provider [phone] Jeffrey Whyte MD Unavailable [phone] [facility], Pcp Primary Care Provider UnavailMary Anne Black NP Unavailable [phone] Encounter Details Date Type Department Care Team Description 11/27/2008 SCAN Medical Records [address] [place] [address] Abstract, Provider Social History Tobacco Use Types [...] Date/Time Associated Diagnosis Comments OUTSIDE LAB Routine 11/27/2008 documented in this encounter Results * OUTSIDE LAB (11/27/2008) Provider Abstract LAB documented in this encounter Visit Diagnoses Not on filedocumented in this encounter Care Teams Kitchen Help Handyman Relationship Specialty Start Date End Date Tori Wells MD PCP - General Internal Medicine 08/11/1708/03 aJgjit Givens, [address] [place] [address] PCP - General Internal Medicine 03/24/21 09/12/21 Milan Turner [address] [place] [address] PCP - General Internal Medicine 09/13/21 11/23/21 Jagjit Givens MD [address] [place] [address] PCP - General Internal Medicine 11/24/21 09/09/22 [facility], Pcp [address] [place] [address] [place] [address] PCP - General Internal Medicine 09/11/22 Jeffrey Whyte MD [address] [place] [address] [place] [address] Specialist Cardiovascular Disease 12/29/21 Mary Anne Valdez, JESUS [address] [place] [address] Rod[address] Villareal [address] [place] [address] Cardiology 01/20/23 documented as of this encounter
--- OUTSIDE RECORDS SUMMARY | 2024-11-07 07:38 | XMS_ITS | Encounter Summary ---
Author Organization [facility] Address [address] [place] [address] Care Team Providers Care Master Planner Name Role Phone Daniel-Tori Harmon MD Primary Care Provider Unavailable Jagjit Givens MD Primary Care Provider [phone] Milan Turner Primary Care Provider Unavailab latrell Givens Ch MD Primary Care Provider [phone] Jeffrey Whyte MD Unavailable [phone] [facility], Pcp Primary Care Provider UnavailMary Anne Black NP Unavailable [phone] Encounter Details Date Type Department Care Team Description 09/29/2018 [facility] Medical Records [address] [place] [address] Viola Juárez NP Social History Tobacco Use Types Packs/Day Years [...] Date/Time Associated Diagnosis Comments OUTSIDE LAB Routine 09/29/2018 OUTSIDE LAB Routine 09/29/2018 documented in this encounter Results * OUTSIDE LAB (09/29/2018) Provider Abstract LAB * OUTSIDE LAB (09/29/2018) Provider Abstract LAB documented in this encounter Visit Diagnoses Not on filedocumented in this encounter Care Teams Master Planner Relationship Specialty Start Date End Date [place]-Tori Harmon MD PCP - General Internal Medicine 08/11/1708/03 Jagjit Givens MD [address] [place] [address] PCP - General Internal Medicine 03/24/21 09/12/21 Milan Turner [address] [place], [place] PCP - General Internal Medicine 09/13/21 11/23/21 Jagjit Givens MD [address] [place], [place] PCP - General Internal Medicine 11/24/21 09/09/22 [facility], Pcp [address] [place] [address] [place] [address] PCP - General Internal Medicine 09/11/22 Jeffrey Whyte MD [address] [place] [address] [place] [address] Specialist Cardiovascular Disease 12/29/21 Mary Anne Valdez NP [address] [place] [address] Rodrick Villareal [address] [place] [address] Cardiology 01/20/23 documented as of this encounter
--- OUTSIDE RECORDS SUMMARY | 2024-11-07 07:38 | XMS_ITS | Clinical Summary ---
Author Organization [facility] Address [address] [place] [address] [address] [place] [address] Care Team Providers Care Package Sealer Name Role Phone Unavailable Primary Care Provider [...] 1971 DTaP/Tdap/Td Vaccines (1 - Tdap) 1978 Pneumococcal Vaccine: 50+ Ye ars (1 of 1 - PCV) 2009 Zoster Vaccines (1 of 2) 2009 COVID-19 Vaccine ( - 2023-2 5 season) 2024 Influenza Vaccine (#1) 2024 RSV Patients and Pa tients Aged [...]
--- OUTSIDE RECORDS SUMMARY | 2024-11-07 07:38 | XMS_ITS | Encounter Summary ---
Author Organization [facility] Address [address] [place] [address] Care Team Providers Care Education Reviewer Name Role Phone Jagjit Givens MD Primary Care Provider [phone] Jeffrey Whyte MD Unavailable [phone] [facility] Primary Care Provider [facility] Black NP Unavailable [phone] Reason for Visit * Reason Onset Date Comments refill request 11/24/2021 Encounter Details Date Type Department Care Team Description 11/24/2021 Refill Adult Medicine - [place] [address] [place] [address] Jagjit Givens, [address] [place] [address] refill request Social History Tobacco Use Types [...] * Telephone Encounter - Zahraa Victor - 11/24/2021 11:11 AM EDT Refills Last office visit: 11/06/21 Last pcp: 10/15/21 Next office visit: 11/28/21 documented in this encounter Plan of Treatment Not on file documented as of this encounter Visit Diagnoses Not on filedocumented in this encounter Care Teams Education Reviewer Relationship Specialty Start Date End Date Jagjit Givens MD [address] [place] [address] PCP - General Internal Medicine 11/24/21 09/09/22 [facility] [address] [place] [address] PCP - General Internal Medicine 09/11/22 Jeffrey Whyte MD [address] [place] [address] [place] [address] Specialist Cardiovascular Disease 12/29/21 Mary Anne Valdez NP [address] [place] [address] Rodrick Villareal [address] [place] [address] Cardiology 01/20/23 documented as of this encounter
--- OUTSIDE RECORDS SUMMARY | 2024-11-07 07:38 | XMS_ITS | Encounter Summary ---
Author Organization [facility] Address [address] [place] [address] Care Team Providers Care Wind Development Director Name Role Phone Tori Wells MD Primary Care Provider Unavailable Jagjit Givens MD Primary Care Provider [phone] Milan Turner Primary Care Provider Unavailab latrell Givens Ch MD Primary Care Provider [phone] Jeffrey Whyte MD Unavailable [phone] [facility], Pcp Primary Care Provider UnavailMary Anne Black NP Unavailable [phone] Encounter Details Date Type Department Care Team Description 09/29/2018 Orders Only Medical Records [address] [place] [address] Abstract, Provider Social History Tobacco Use Types [...] Date/Time Associated Diagnosis Comments OUTSIDE MRI/MRA Routine 09/28/2018 documented in this encounter Results * OUTSIDE MRI/MRA (09/28/2018) Provider Abstract RADIOLOGY documented in this encounter Visit Diagnoses Not on filedocumented in this encounter Care Teams Wind Development Director Relationship Specialty Start Date End Date Tori Wells MD PCP - General Internal Medicine 08/11/1708/03 Jagjit Givens MD [address] [place] [address] PCP - General Internal Medicine 03/24/21 09/12/21 Milan Turner [address] [place] [address] PCP - General Internal Medicine 09/13/21 11/23/21 Jagjit Givens MD [address] [place], [place] PCP - General Internal Medicine 11/24/21 09/09/22 [facility], Pcp [address] [facility] [place] [address] PCP - General Internal Medicine 09/11/22 Jeffrey Whyte MD [address] [place] [address] [place] [address] Specialist Cardiovascular Disease 12/29/21 Mary Anne Valdez NP [address] [place] [address] Rodrick Villareal [address] [place] [address] Cardiology 01/20/23 documented as of this encounter
--- OUTSIDE RECORDS SUMMARY | 2024-11-07 07:38 | XMS_ITS | Encounter Summary ---
Author Organization [facility] Address [address] [place] [address] Care Team Providers Care Boat Joiner Name Role Phone Jagjit Givens MD Primary Care Provider [phone] Jeffrey Whyte MD Unavailable [phone] [facility], Pcp Primary Care Provider [facility] Mary Anne Young NP Unavailable [phone] Reason for Visit * Reason Onset Date Comments APPOINTMENT 12/01/2021 Encounter Details Date Type Department Care Team Description 12/01/2021 Telephone Cardio PVC POC [address] [place] [address] Jeffrey Whyte MD [address] [place] [address] [place] [address] APPOINTMENT Social History Tobacco Use Types Packs/Day Years [...] encounter Miscellaneous Notes * Telephone Encounter - Alyssa Jewell - 12/01/2021 9:41 AM EDT LMOM to conf appt. documented in this encounter Plan of Treatment Not on file documented as of this encounter Visit Diagnoses Not on filedocumented in this encounter Care Teams Boat Joiner Relationship Specialty Start Date End Date Jagjit Givens MD [address] [place] [address] PCP - General Internal Medicine 11/24/21 09/09/22 [facility], Pcp [address] [place] [address] [place] [address] PCP - General Internal Medicine 09/11/22 Jeffrey Whyte MD [address] [place] [address] [place] [address] Specialist Cardiovascular Disease 12/29/21 Mary Anne Valdez NP [address] [place] [address] [place] [address] Cardiology 01/20/23 documented as of this encounter
--- OUTSIDE RECORDS SUMMARY | 2024-11-07 07:38 | XMS_ITS | Encounter Summary ---
Author Organization [facility] Address [address] [place] [address] Care Team Providers Care Education Department Registrar Name Role Phone Jagjit Givens MD Primary Care Provider [phone] Jeffrey Whyte MD Unavailable [phone] [facility], Pcp Primary Care Provider Mary Anne Gross NP Unavailable [phone] Encounter Details Date Type Department Care Team Description 11/24/2021 Refill Adult Medicine - [place] [address] [place] [address] Milan Turner Social History Tobacco Use Types Packs/Day Years [...] PM EST documented as of this encounter Plan of Treatment Not on file documented as of this encounter Visit Diagnoses Not on filedocumented in this encounter Care Teams Education Department Registrar Relationship Specialty Start Date End Date Jagjit Givens MD [address] [place] [address] PCP - General Internal Medicine 11/24/21 09/09/22 [facility], P[place] [address] PCP - General Internal Medicine 09/11/22 Jeffrey Whyte MD [address] [place] [address] [place] [address] Specialist Cardiovascular Disease 12/29/21 Mary Anne Valdez NP [address] [place] [address] [place] [address] Cardiology 01/20/23 documented as of this encounter
--- OUTSIDE RECORDS SUMMARY | 2024-11-07 07:38 | XMS_ITS | Encounter Summary ---
Author Organization [facility] Address [address] [place] [address] Care Team Providers Care Digital Content Specialist Name Role Phone Tori Wells MD Primary Care Provider Unavailable Jagjit Givens MD Primary Care Provider [phone] Milan Turner Primary Care Provider Unavailab latrell Givens Ch MD Primary Care Provider [phone] Jeffrey Whyte MD Unavailable [phone] [facility], Pcp Primary Care Provider UnavailMary Anne Black NP Unavailable [phone] Encounter Details Date Type Department Care Team Description 07/21/2007 SCAN Medical Records [address] [place] [address] Abstract, Provider Social History Tobacco Use Types [...] Date/Time Associated Diagnosis Comments OUTSIDE LAB Routine 07/21/2007 documented in this encounter Results * OUTSIDE LAB (07/21/2007) Provider Abstract LAB documented in this encounter Visit Diagnoses Not on filedocumented in this encounter Care Teams Digital Content Specialist Relationship Specialty Start Date End Date Tori Wells MD PCP - General Internal Medicine 08/11/1708/03 Jagjit Givens MD [address] [place] [address] PCP - General Internal Medicine 03/24/21 09/12/21 Milan Turner [address] [place] [address] PCP - General Internal Medicine 09/13/21 11/23/21 Jagjit Givens MD [address] [place] [address] PCP - General Internal Medicine 11/24/21 09/09/22 [facility], Pcp [address] [place] [address] [place] [address] PCP - General Internal Medicine 09/11/22 Jeffrey Whyte MD [address] [place] [address] [place] [address] Specialist Cardiovascular Disease 12/29/21 Mary Anne Valdez, JESUS [address] [place] [address] Rodrick Villareal [address] [place] [address] Cardiology 01/20/23 documented as of this encounter
--- OUTSIDE RECORDS SUMMARY | 2024-11-07 07:39 | XMS_ITS | Clinical Summary ---
Author Organization [facility] Address [address] [place] [address] Care Team Providers Care Manager Account Management Name Role Phone Gisell Givens MD Primary Care Prov ider Allergies Active Allergy Reactions Criticality Noted Date Comments Bee Venom Protein (Honey Bee) Hives 2016 Medications amLODIPine (NORVASC) 10 mg tablet Take 1 tablet (10 mg total) by mouth 1 (one) time each day. 11/09/2022 Active lisinopriL (PRINIVIL,ZESTR IL) 10 mg tablet Take 1 tablet (10 [...] at Not on file Legal Sex Male 6:10 PM EST Gender Identity Not on file Sexual Orientation [...] Health Maintenance Due Date Last Done Comments Hepatitis A Vaccines (1 of 2 - Risk 2-dose series) 1978 Pneumococcal Vaccine: 50+ Years (1 of 2 - PCV) 1978 Pneumococcal Vaccine: Pediatrics (0 to 5 Years) and At-Risk Patients (6 to 64 Years) (1 of 2 - PCV) 1978 Zoster Vaccines (1 of 2) 2009 [...] patient's age to complete this topic Meningococcal B Vacine Aged Out No lo nger eligible based on patient's age to complete [...] * Annual BMP Blood Test (05/22/2022) Pathologist [facility] Annual BMP Blood Test abstracted [facility] Provider HEALTH MAINTENANCE Final Result * (ABNORMAL) Lipid panel (11/06/2021) [facility] LDL/HDL Ratio 5(A) 0 - 4 Triglycerides 150 0 - 150 mg/dL Cholesterol 122(A) 0 - 100 mg/dL HDL 43 >=40 mg/dL LDL Cholesterol 122(A) 0 - 100 mg/dL Blood Venous blood specimen / Unknown Result [facility] Provider LAB BLOOD ORDERABLES Michelle l Result * Hepatitis C Screening (09/20/2018) [facility] Hepatitis C Screening abstracted [facility] Provider HEALTH MAINTENANCE Final Result * Colonoscopy (12/03/2011) [facility] Colonoscopy no interpretation , abstracted Anatomical Region Laterality Modality Other [facility] Provider HEALTH MAINTENANCE Final Result from Last 3 Months or Most Recently Relevant to Health Maintenance Care Teams Manager Account Management Relationship Specialty Start Date End Date Gisell Givens MD PCP - General Internal Medicine 03/24/21
--- OUTSIDE RECORDS SUMMARY | 2024-11-07 07:39 | XMS_ITS | Encounter Summary ---
Author Organization [facility] Address [address] [place] [address] Care Team Providers Care Technical Sales Associate Name Role Phone Jagjit Givens MD Primary Care Provider [phone] Milan Turner Primary Care Provider Unavailab latrell Givens Ch MD Primary Care Provider + [phone] Jeffrey Whyte MD Unavailable [phone] [facility] Primary Care Provider UnavailMary Anne Black NP Unavailable [phone] Reason for Visit * Reason Onset Date Comments Annual Wellness Outreach 04/22/2021 Encounter Details Date Type Department Care Team Description 04/22/2021 Telephone Adult Medicine [facility] [address] [place] [address] Jagjit Givens MD [address] [place] [address] Annual Wellness Outreach Social History Tobacco Use Types Packs/Day Years [...] have Coronavirus / COVID-19? No / Unsure 04/14/2021 9:28 AM EDT documented as of this encounter Miscellaneous Notes * Telephone Encounter - Cristysa Osorio - 06/19/2021 3:37 PM EDT Attempted outreach to patient on 06/19/21 for screening for AWV. HIPAA compliant voice message leftrequesting a call back. * Telephone Encounter - Garo Montalvo M.A. - 04/22/2021 9:32 AM EDT Mr. Rm was contacted by telephone. [facility] to call back. [phone] documented in this encounter Plan of Treatment Not on file documented as of this encounter Visit Diagnoses Not on filedocumented in this encounter Care Teams Technical Sales Associate Relationship Specialty Start Date End Date Jagjit Givens MD [address] [place] [address] PCP - General Internal Medicine 03/24/21 09/12/21 Milan Turner [address] [place] [address] PCP - General Internal Medicine 09/13/21 11/23/21 Jagjit Givens MD [address] [place] [address] PCP - General Internal Medicine 11/24/21 09/09/22 [facility] [address] [facility] [place] [address] PCP - General Internal Medicine 09/11/22 Jeffrey Whyte MD [address] [place] [address] [place] [address] Specialist Cardiovascular Disease 12/29/21 Mary Anne Valdez NP [address] [place] [address] [place] [address] Cardiology 01/20/23 documented as of this encounter
--- OUTSIDE RECORDS SUMMARY | 2024-11-07 07:39 | XMS_ITS | Encounter Summary ---
Author Organization [facility] Address [address] [place] [address] Care Team Providers Care Wind Turbine Machinist Name Role Phone Tori Wells MD Primary Care Provider Unavailable Jagjit Givens MD Primary Care Provider [phone] Milan Turner Primary Care Provider Unavailab latrell Givens Ch MD Primary Care Provider [phone] Jeffrey Whyte MD Unavailable [phone] [facility], Pcp Primary Care Provider UnavailMary Anne Black NP Unavailable Reason for Visit * Reason Onset Date Comments medication problems 06/05/2020 Encounter Details Date Type Department Care Team Description 06/05/2020 Telephone Adult Medicine - [address] [address] Tori Wells MD medication problems Social History Tobacco Use Types Packs/Day Years [...] Miscellaneous Notes * Telephone Encounter - Zahraa Rhodes M.A. - 06/06/2020 9:50 AM EDT Pt advised * Telephone Encounter - Tori Wells MD - 06/06/2020 8:24 AM EDT I ordered a new script for 1.5 pills a day * Telephone Encounter - Stefania Mena - 06/05/2020 11:13 AM EDT Who is calling? The patient Name of the medication trazodone (DESYREL) 100 MG tablet What is the specific problem or interaction? Patient states he has been taking 150mg and states that Tori Wells told him to up it so he is now completely out of this med If the patient is having a problem with taking the med - how long has the problem been going on? N/A documented in this encounter Plan of Treatment Not on file documented as of this encounter Visit Diagnoses Not on filedocumented in this encounter Care Teams Wind Turbine Machinist Relationship Specialty Start Date End Date Tori Wells MD PCP - General Internal Medicine 08/11/1708/03 Jagjit Givens MD [address] [place] [address] PCP - General Internal Medicine 03/24/21 09/12/21 Milan Turner [address] [place], [place] PCP - General Internal Medicine 09/13/21 11/23/21 Jagjit Givens MD [address] [place] [address] PCP - General Internal Medicine 11/24/21 09/09/22 [facility], [address] [place] [address] PCP - General Internal Medicine 09/11/22 Jeffrey Whyte MD [address] [place] [address] [place] [address] Specialist Cardiovascular Disease 12/29/21 Mary Anne Valdez NP [address] [place] [address] Cardiology 01/20/23 documented as of this encounter
[2024-11-17 14:10] VITALS: BMI 36.0
--- NOTE | 2024-11-20 12:15 | HO.ANESPROP2 ---
Documented by User: Catherine Ryan NP 11/20/24 12:25 HPI - Anesthesia Eval Consult details Narrative: 64yo M for Upper Endoscopy and Colonoscopy ETOH liver disease Per EKG/GI visit: Ventricular bigeminy that has not been evaluated by cardiology. PCP does not address since 2022 EKG. COUNTS INCLUDE [facility] BEDS AT [facility] Active Problems Active Problems: All Active Problems Screening for prostate cancer (Acute) Angular cheilitis (Acute) Alcoholic liver disease (Acute) Pre-op examination (Acute) History of hepatitis C (Acute) Transaminitis (Acute) Rash (Acute) Left shoulder pain (Acute) Elbow pain, left (Acute) Hypercholesterolemia (Acute) Elevated fasting glucose (Acute) Elevated liver enzymes (Acute) Pseudogout (Acute) Alcohol use disorder (Acute) Abnormal heart rhythm (Acute) Depression (Acute) GERD (gastroesophageal reflux disease) (Acute) Constipation (Acute) ETOH abuse (Acute) High blood pressure (Acute) Past Medical History Medical History Screening for prostate cancer History of gout Laboratory exam ordered as part of routine general medical examination Adult general medical exam Screening for colon cancer Gout High blood pressure Family History Family History Sister Substance abuse Mental health disorder Brother Cardiovascular disorder Mental health disorder Other Alcohol abuse Surgical History Surgical History History of left shoulder replacement Hx of left knee surgery History of esophagogastroduodenoscopy (EGD) Hx of colonoscopy No pertinent past surgical history Social History Social History Household Members: Spouse and Significant Other Housing: Apartment Alcohol intake: current Alcohol intake frequency: a few times a week Comment: 0.5-1 pint daily Patient Tobacco Use Status: Former Tobacco user Cigarettes Per Day: 20 Years Smoked: 15 e-Cigarette/Vaping Use: Never Used Substance Use Type: Marijuana Substance Use Type Other:: edibles last 3 days ago Have you been hit, kicked, punched, or otherwise hurt by someone within the past year? If so, by whom?: No Are you DNR?: No Advance Directives: No Advance Directives Information Provided: Yes Nutrition Risks: No Nutritional Risk service: No Current occupational status: disabled Sexual orientation: Unable to collect Gender identity: Unable to collect Cognitive needs: No Hearing needs: No Vision needs: No Meds Allergies Allergy/AdvReac Type Severity Reaction Status Date / Time No Known Drug Allergies Allergy Unknown Unknown Verified 10/11/24 14:57 bee sting Allergy Intermediate Swelling Uncoded 07/19/24 11:38 Home Medications ?Medication ?Instructions ?Recorded ?Confirmed ?Last Taken ?Type stool softener and stimulant 100 PO DAILY 12/16/22 07/19/24 Unknown History Exam Height,Weight and Vital Signs: Height 5 ft 7 in Weight 104.326 kg Pertinent Lab Results Pertinent Lab Results: Laboratory Tests 07/20/24 07/24/24 11:46 06:47 WBC 7.3 Hgb 16.1 Hct 44.6 Plt Count 137 L D Sodium 138 Potassium 4.1 Chloride 106 Carbon Dioxide 20 L BUN 17 H Creatinine 0.83 Ferritin 294 H Total Bilirubin 0.7 GGT 203 H AST 219 H ALT 208 H Alkaline Phosphatase 102 Assessment and Plan Assessment Anesthesia Assessment: Chart Reviewed Documented by User: Jennifer Everett MD 11/21/24 07:38 PMFSH Past Medical History Medical History Screening for prostate cancer History of gout Laboratory exam ordered as part of routine general medical examination Adult general medical exam Screening for colon cancer Gout High blood pressure Family History Family History Sister Substance abuse Mental health disorder Brother Cardiovascular disorder Mental health disorder Other Alcohol abuse Family history of problems with anesthesia: No Surgical History Surgical History History of left shoulder replacement Hx of left knee surgery History of esophagogastroduodenoscopy (EGD) Hx of colonoscopy No pertinent past surgical history History of Problems with Anesthesia: No Social History Social History Household Members: Spouse and Significant Other Housing: Apartment Alcohol intake: current Alcohol intake frequency: a few times a week Comment: 0.5-1 pint daily Patient Tobacco Use Status: Former Tobacco user Cigarettes Per Day: 20 Years Smoked: 15 e-Cigarette/Vaping Use: Never Used Substance Use Type: Marijuana Substance Use Type Other:: edibles last 3 days ago Have you been hit, kicked, punched, or otherwise hurt by someone within the past year? If so, by whom?: No Are you DNR?: No Advance Directives: No Advance Directives Information Provided: Yes Nutrition Risks: No Nutritional Risk service: No Current occupational status: disabled Sexual orientation: Unable to collect Gender identity: Unable to collect Cognitive needs: No Hearing needs: No Vision needs: No Meds Allergies Allergy/AdvReac Type Severity Reaction Status Date / Time No Known Drug Allergies Allergy Unknown Unknown Verified 10/11/24 14:57 bee sting Allergy Intermediate Swelling Uncoded 07/19/24 11:38 Home Medications ?Medication ?Instructions ?Recorded ?Confirmed ?Last Taken ?Type stool softener and stimulant 100 PO DAILY 12/16/22 07/19/24 Unknown History Exam Airway Mallampati Class: III TM Dist: <=3cm Neck ROM: Limited Heart: rrr Lungs: cta Assessment and Plan Assessment Anesthesia Assessment: Anesthesia Plan Discussed Final Anesthetic Review Family History of Problems with Anesthesia: No History of Problems with Anesthesia: No NPO: Yes ASA Class: III Final Preanesthetic Review: No Changes in Pt Med Stat, Meds/Allgs Chart Reviewed, Consent Obtained/Reviewed and Anes Risks/Benef Reviewed Patient Risk: Intermediate Procedure Risk: Low Anesthetic Plan Anesthetic Plan: MAC: Disposition: Standard PACU
[2024-11-21 06:36] VITALS: BP 174/63; PULSE 67; RESP 20; TEMP 36.3; O2SAT 95; BMI 35.0
[2024-11-21] MEDS: Lactated Ringers 1,000 ML 100 ML IVCONT (07:01)
--- NOTE | 2024-11-21 07:44 | P.HPSUR_ITS ---
Pre-Procedural Eval Section A - 24 Hr Update-Section A only Date of Service: 11/21/24 Section B - Complete if H&P > 30 days Chief Complaint: Encounter for screening for malignant neoplasm of Relevant Family History (Specify if Yes): No Relevant Social History: Alcohol Use Present Medications: see Short Stay Collaborative assessment Medical History: Significant History (Screening for prostate cancer History of gout Laboratory exam ordered as part of routine general medical examination Adult general medical exam Screening for colon cancer Gout High blood pressure) History of Previous Operations: Relevant previous surgery/procedure and date(s) (History of left shoulder replacement Hx of left knee surgery History of esophagogastroduodenoscopy (EGD) Hx of colonoscopy No pertinent past surgical history) Allergies: Allergies Allergy/AdvReac Type Severity Reaction Status Date / Time No Known Drug Allergies Allergy Unknown Unknown Verified 10/11/24 14:57 bee sting Allergy Intermediate Swelling Uncoded 07/19/24 11:38 Review of Systems Sugical H&P ROS: Negative: Constitution, Cardiovascular, Respiratory, Neurological, Psychiatric, Hem-Onc, Allergic/Immunologic, Gastrointestinal, Genitourinary, Musculoskeletal, Integumentary, Endocrine and Eyes/Ear s/Nose/Throat Exam Surgical H&P Exam: Normal: HEENT, Normal: Heart, Normal: Lungs, Normal: Extremities, Normal: Abdomen, Normal: Skin and Normal: Neurological Plan Diagnosis/Plan: Unchanged I have reviewed the history and physical and performed a pertinent physical examination on my patient. No changes have occurred unless specified. Time Spent With Patient Time: Total time managing care of this patient today ____ minutes.
--- NOTE | 2024-11-21 08:22 | P.OPN-COLO_ITS ---
Colonoscopy Operative Note Operative Note Date of Service: 11/21/24 Narrative: Operative Information Procedure Description: EGD, Colonoscopy Indication: variceal screening, colon screening Anesthesia: MAC FLEXIBLE TRANSORAL UPPER GASTROINTESTINAL ENDOSCOPY AND COLONOSCOPY PROCEDURE NOTE UPPER ENDOSCOPY Consent: Indications for the procedure and potential complications of bleeding, perforation, reaction to medications and missed diagnosis were discussed with the patient and informed consent was obtained. Instrument: Olympus GIF H 190 J mid size upper endoscope Monitoring: Vital signs and clinical assessment, continuous EKG monitoring, Pulse oximetry, Carbon Dioxide monitoring and blood pressure monitoring were done throughout the procedure. Procedure: The patient was placed in the left lateral decubitis position and pre-procedure medications were administered and a bite block was placed. The endoscope was inserted into the mouth and advanced under direct vision to the third part of duodenum. A careful inspection was made as the upper endoscope was withdrawn including a retroflexed examination of the proximal stomach; Findings and interventions are described below. Findings: Larynx:normal Esophagus: GE junction at 40 cm, diaphragm hiatus at 40 cm, mild esophagitis, x 1 varix column noted grade III without red alexandre, with x 2 bands applied with good collapse Stomach: nodularity and congestion, erythema consistent with portal hypertensive gastropathy. Grade 2 flap valve on retroflexed examination of the cardia. No gastric varices seen Duodenum: Normal bulb and descending duodenum, Intervention: Variceal banding COLONOSCOPY Instrument: Olympus variable stiffness ADULT scope 190L Colonoscopy Monitoring: Vital signs and clinical assessment, continuous EKG monitoring, Pulse oximetry, Carbon Dioxide monitoring and blood pressure monitoring were done throughout the procedure. Colon withdrawal time was 12 minutes. Procedure: The patient was placed in the left lateral decubitis position and pre-procedure medications were administered. After a digital rectal examination of the ano-rectum, the video colonoscope was inserted into the rectum and advanced through the colon to the cecum/TI. The colonoscope was slowly withdrawn in a retrograde panoramic fashion and the colon mucosa was carefully examined including a retroflexed view of the rectum. Findings and interventions are described below. Procedure Difficulty:moderate Findings: Terminal Ileum-normal Cecum: x1 sessile polyp 8-9 mm removed with cold snare and x 1 sessile polyp 5-7 mm removed with cold forceps Ascending Colon: normal Transverse Colon - x 2 sessile polyps 6-8 mm removed with cold snare Descending Colon:normal Sigmoid Colon: x1 sessile polyp 5-7 mm removed with cold snare, diverticulosis noted as well Rectum: Retroflexion with small internal hemorrhoids, grade I Congestive colonopathy noted throughout colon Anorectum - normal Colon preparation: [place] Bowel Preparation Scale Right colon; 2 Transverse colon: 2 Left colon; 2 (0 = Unprepared colon segment with mucosa not seen due to solid stool that cannot be cleared. 1 = Portion of mucosa of the colon segment seen, but other areas of the colon segment not well seen due to staining, residual stool and/or opaque liquid. 2 = Minor amount of residual staining, small fragments of stool and/or opaque liquid, but mucosa of colon segment seen well. 3 = Entire mucosa of colon segment seen well with no residual staining, small fragments of stool or opaque liquid) Impression and Post Procedure Diagnosis: Endoscopy Findings: esophageal varices portal hypertensive gastropathy esophagitis Colonoscopy Findings: diverticulosis colon polyps internal hemorrhoids Plan: Await Pathology results Repeat Colonoscopy in 2-3 years due to polyps or earlier if clinically indicated High fiber diet leaflet avoid straining at stool, epsom salts and sitz bath, anusol supps or cream repeat EGD in about 4-6 weeks - magic mouthwash for 1 week Above findings were reviewed with the patient and relevant handouts were provided if indicated.
[2024-11-21 08:28] VITALS: BP 90/56; PULSE 66; RESP 16; TEMP 36.3; O2SAT 93
[2024-11-21 09:00] VITALS: BP 141/83; PULSE 64; RESP 20; TEMP 36.3; O2SAT 95
== END 2024-11-21 09:48 | disposition home or self-care (01) ==
PROVIDERS: PCP Family Medicine; Visit Provider Internal Medicine Gastroenterology
PROC: (CPT 45385; principal; 2024-11-21 07:30)
DX: Z12.11 Encounter for screening for malignant neoplasm of colon (principal); D12.0 Benign neoplasm of cecum; D12.3 Benign neoplasm of transverse colon; D12.5 Benign neoplasm of sigmoid colon; K57.30 Diverticulosis of large intestine without perforation or abscess without bleeding; K64.0 First degree hemorrhoids; I85.00 Esophageal varices without bleeding; K20.80 Other esophagitis without bleeding; K44.9 Diaphragmatic hernia without obstruction or gangrene; K76.6 Portal hypertension; K31.89 Other diseases of stomach and duodenum; I10 Essential (primary) hypertension; M10.9 Gout, unspecified; Z98.890 Other specified postprocedural states
CPT/HCPCS: 45385; 43244; 88305; J2003; J2704

== ENCOUNTER → 2024-11-21 05:56 | Outpatient (BNV) | payer BC, SELFPAY | PROVIDERS: PCP Family Medicine; Visit Provider Internal Medicine Gastroenterology | DX: Z12.11 Encounter for screening for malignant neoplasm of colon (principal); D12.0 Benign neoplasm of cecum; D12.3 Benign neoplasm of transverse colon; D12.5 Benign neoplasm of sigmoid colon; K57.30 Diverticulosis of large intestine without perforation or abscess without bleeding; K64.0 First degree hemorrhoids; I85.00 Esophageal varices without bleeding; K31.89 Other diseases of stomach and duodenum; K20.90 Esophagitis, unspecified without bleeding | CPT/HCPCS: 43244; 45380; 45385 ==

== ENCOUNTER 2025-01-02 12:14 | Day surgery (SDC) | payer BC, SELFPAY ==
--- OUTSIDE RECORDS SUMMARY | 2024-11-21 16:37 | XMS_ITS | Clinical Summary ---
Author Organization [facility] Address [address] [place] [address] Care Team Providers Care File Machine Operator Name Role Phone Gisell Givens MD Primary [...] access hospital Annual BMP Blood Test abstracted [facility] Provider HEALTH MAINTENANCE Final Result * (ABNORMAL) Lipid panel (11/06/2021) [facility] LDL/HDL Ratio 5(A) 0 - 4 Triglycerides 150 0 - 150 mg/dL Cholesterol 122(A) 0 - 100 mg/dL HDL 43 >=40 mg/dL LDL Cholesterol 122(A) 0 - 100 mg/dL Blood Venous blood specimen / Unknown Result [facility] Provider LAB BLOOD ORDERABLES Michelle l Result * Hepatitis C Screening (09/20/2018) [facility] Hepatitis C Screening abstracted [facility] Provider HEALTH MAINTENANCE Final Result * Colonoscopy (12/03/2011) [facility] Colonoscopy no interpretation , abstracted Anatomical Region Laterality Modality Other [facility] Provider HEALTH MAINTENANCE Final Result from Last 3 Months or Most Recently Relevant to Health Maintenance Care Teams File Machine Operator Relationship Specialty Start Date End Date Gisell Givens MD PCP - General Internal Medicine 03/24/21
--- OUTSIDE RECORDS SUMMARY | 2024-11-21 16:37 | XMS_ITS | Encounter Summary ---
Author Organization [facility] Address [address] [place] [address] Care Team Providers Care Risk Control Field Representative Name Role Phone Jagjit Givens MD Primary Care Provider [phone] Milan Turner Primary Care Provider Unavailab latrell Givens Ch MD Primary Care Provider [phone] Jeffrey Whyte MD Unavailable [phone] [facility] Primary Care Provider UnavailMary Anne Black NP Unavailable [phone] Reason for Visit * Reason Onset Date Comments refill request 07/08/2021 Encounter Details Date Type Department Care Team Description 07/08/2021 Refill Adult Medicine - [place] [address] [place] [address] Jagjit Givens MD [address] [place] [address] refill request Social History Tobacco Use Types [...] LAST TIME THE PATIENT SAW THEIR PCP? managing partner digital content marketing [place] ?? Does patient have an upcoming appointment? [...] ?? Patients current insurance carrier is: Payor: MEDICARE-[employer] / [place] / Product Type: MEDICARE [id number] ? documented in this encounter Plan of Treatment Not on file documented as of this encounter Visit Diagnoses Not on filedocumented in this encounter Care Teams Risk Control Field Representative Relationship Specialty Start Date End Date Jagjit Givens MD [address] [place] [address] PCP - General Internal Medicine 03/24/21 09/12/21 Milan Turner [address] [place] [address] PCP - General Internal Medicine 09/13/21 11/23/21 Jagjit Givens MD [address] [place] [address] PCP - General Internal Medicine 11/24/21 09/09/22 [facility], [address] [place] [address] PCP - General Internal Medicine 09/11/22 Jeffrey Whyte MD [address] [place] [address] Dr Villareal [address] [place] [address] Specialist Cardiovascular Disease 12/29/21 Mary Anne Valdez NP [address] [place] [address] [address] Cardiology 01/20/23 documented as of this encounter
--- OUTSIDE RECORDS SUMMARY | 2024-11-21 16:37 | XMS_ITS | Encounter Summary ---
Author Organization [facility] [place] [facility] Address [address] [place] [address] Care Team Providers Care Regulatory Process Manager Name Role Phone Unavailable Primary Care [...]
--- OUTSIDE RECORDS SUMMARY | 2024-11-21 16:37 | XMS_ITS | Encounter Summary ---
Author Organization [facility] Address [address] [place] [address] Care Team Providers Care Sql Server Architect Name Role Phone Jeffrey Whyte MD Unavailable [phone] [facility], Pcp Primary Care Provider UnavailMary Anne Black NP Unavailable [phone] Reason for Visit * Reason Comments E-prescribe Rx Request Encounter Details Date Type Department Care Team Description 03/28/2023 Refill Adult Medicine - [place] [address] [place] [address] Jagjit Givens MD [address] [place] [address] E-prescribe Rx Request Social History Tobacco Use [...] on filedocumented in this encounter Care Teams Sql Server Architect Relationship Specialty Start Date End Date [facility]ly [facility], Pcp [place] [address] PCP - General Internal Medicine 09/11/22 Jeffrey Whyte MD [address] [place] [address] Specialist Cardiovascular Disease 12/29/21 Mary Anne Valdez NP [address] [place] [address] [address] Cardiology 01/20/23 documented as of this encounter
--- OUTSIDE RECORDS SUMMARY | 2024-11-21 16:37 | XMS_ITS | Encounter Summary ---
Author Organization [facility] Address [address] [place] [address] Care Team Providers Care Product Marketing Coordinator Name Role Phone Tori Wells MD Primary Care Provider Unavailable Jagjit Givens MD Primary Care Provider [phone] Milan Turner Primary Care Provider Unavailab latrell Givens Ch MD Primary Care Provider [phone] Jeffrey Whyte MD Unavailable [phone] [facility], Pcp Primary Care Provider UnavailMary Anne Black NP Unavailable [phone] Encounter Details Date Type Department Care Team Description 09/29/2018 Orders Only Medical Records [address] [place] [address] Abstract, Provider Social History Tobacco Use Types [...] on filedocumented in this encounter Care Teams Product Marketing Coordinator Relationship Specialty Start Date End Date Tori Wells MD PCP - General Internal Medicine 08/11/1708/03 Jagjit Givens MD [address] [place] [address] PCP - General Internal Medicine 03/24/21 09/12/21 Milan Turner [address] [place] [address] PCP - General Internal Medicine 09/13/21 11/23/21 Jagjit Givens MD [address] [place], [place] PCP - General Internal Medicine 11/24/21 09/09/22 [facility], Pcp [address] [facility] [place] [address] PCP - General Internal Medicine 09/11/22 Jeffrey Whyte MD [address] [place] [address] [place] [address] Specialist Cardiovascular Disease 12/29/21 Mary Anne Valdez NP [address] [place] [address] Rodrick Villareal [address] [place] [address] Cardiology 01/20/23 documented as of this encounter
--- OUTSIDE RECORDS SUMMARY | 2024-11-21 16:37 | XMS_ITS | Encounter Summary ---
Author Organization [facility] Address [address] [place] [address] Care Team Providers Care Inventory Planner Name Role Phone Tori Wells MD Primary Care Provider Unavailable Jagjit Givens MD Primary Care Provider [phone] Milan Turner Primary Care Provider Unavailab latrell Givens Ch MD Primary Care Provider [phone] Jeffrey Whyte MD Unavailable [phone] [facility], Pcp Primary Care Provider UnavailMary Anne Black NP Unavailable [phone] Encounter Details Date Type Department Care Team Description 05/19/2012 SCAN Medical Records [address] [place] [address] [place] Social History Tobacco Use Types Packs/Day Years Used Date Smoking Tobacco: Never Assessed Sex Assigned at Date Recorded Not on file Job Start Date Occupation Industry Not on file Not on file Not on file documented as of this encounter Plan of Treatment Not on file documented as of this encounter Procedures Procedure Name Priority Date/Time Associated Diagnosis Comments OUTSIDE PLAIN FILM Routine 05/19/2012 documented in this encounter Results * OUTSIDE PLAIN FILM (05/19/2012) Provider Abstract RADIOLOGY documented in this encounter Visit Diagnoses Not on filedocumented in this encounter Care Teams Inventory Planner Relationship Specialty Start Date End Date Tori Wells MD PCP - General Internal Medicine 08/11/1708/03 Jagjit Givens MD [address] [place] [address] PCP - General Internal Medicine 03/24/21 09/12/21 Milan Turner [address] [place] [address] PCP - General Internal Medicine 09/13/21 11/23/21 Jagjit Givens MD [address] [place] [address] PCP - General Internal Medicine 11/24/21 09/09/22 [facility], Pcp [address] [place] [address] [place] [address] PCP - General Internal Medicine 09/11/22 Jeffrey Whyte MD [address] [place] [address] [place] [address] Specialist Cardiovascular Disease 12/29/21 Mary Anne Valdez NP [address] [place] [address] Rod[place] Villareal [address] [place] [address] [place] [address] Cardiology 01/20/23 documented as of this encounter
--- OUTSIDE RECORDS SUMMARY | 2024-11-21 16:37 | XMS_ITS | Encounter Summary ---
Author Organization [facility] Address [address] [place] [address] Care Team Providers Care Tester Printed Circuit Boards Name Role Phone Jeffrey Whyte MD Unavailable [phone] [facility], Pcp Primary Care Provider Mary Anne Gross NP Unavailable [phone] Encounter Details Date Type Department Care Team Description 09/17/2022 SCAN Medical Records [address] [place] [address] Abstract, Provider Social History Tobacco Use Types [...] on filedocumented in this encounter Care Teams Tester Printed Circuit Boards Relationship Specialty Start Date End Date Community, [facility] [place] [address] PCP - General Internal Medicine 09/11/22 Jeffrey Whyte MD [address] [place] [address] Dr Mono [address] [place] [address] Specialist Cardiovascular Disease 12/29/21 Mary Anne Valdez, JESUS [address] [place] [address] Cardiology 01/20/23 documented as of this encounter
--- OUTSIDE RECORDS SUMMARY | 2024-11-21 16:37 | XMS_ITS | Clinical Summary ---
Author Organization [facility] Address [address] [place] [address] Care Team Providers Care Section Forest Fire Warden Name Role Phone Gisell Givens MD Primary [...] patient's age to complete this topic [place] [address] [place] [address] PROVIDER [facility] [employer] PROVIDER [facility] Care Teams Section Forest Fire Warden Relationship Specialty Start Date End Date Gisell Givens MD PCP - General Internal Medicine 12/11/21
--- OUTSIDE RECORDS SUMMARY | 2024-11-21 16:37 | XMS_ITS | Encounter Summary ---
Author Organization [facility] Address [address] [place] [address] Care Team Providers Care Cargo Supervisor Name Role Phone Jagjit Givens MD Primary Care Provider [phone] Jeffrey Whyte MD Unavailable [phone] [facility], Pcp Primary Care Provider UnavailMary Anne Black RESPITE COORDINATOR Unavailable [phone] Reason for Visit * Reason Onset Date Comments Testing 01/20/2022 pt wants Coronar y CTA scheduled Encounter Details Date Type Department Care Team Description 01/20/2022 Telephone Cardio PVCA Diag Testing 101 [address] [facility] [address] [place] [address] Jeffrey Whyte MD [address] [place] [address] Dr Villareal [address] [place] [address] Testing (pt wants Coronary CTA scheduled) Social History Tobacco Use Types Packs/Day Years [...] on filedocumented in this encounter Care Teams Cargo Supervisor Relationship Specialty Start Date End Date Jagjit Givens MD [address] [place] [address] PCP - General Internal Medicine 3/14/22 12/28/22 [facility], Pcp [address] [facility] [place] [address] PCP - General Internal Medicine 09/11/22 Jeffrey Whyte MD [address] [place] [address] [place] [address] Specialist Cardiovascular Disease 12/29/21 Mary Anne Valdez NP [address] [place] [address] [place] [address] Cardiology 01/20/23 documented as of this encounter
--- OUTSIDE RECORDS SUMMARY | 2024-11-21 16:37 | XMS_ITS | Encounter Summary ---
Author Organization [facility] Address [address] [place] [address] Care Team Providers Care Multiple Launch Rocket System Crewmember Name Role Phone Tori Wells MD Primary Care Provider Unavailable Jagjit Givens MD Primary Care Provider [phone] Milan Turner Primary Care Provider Unavailab latrell Givens Ch MD Primary Care Provider [phone] Jeffrey Whyte MD Unavailable [phone] [facility], Pcp Primary Care Provider UnavailMary Anne Black NP Unavailable [phone] Reason for Visit * Reason Onset Date Comments medication problems 06/05/2020 Encounter Details Date Type Department Care Team Description 06/05/2020 Telephone Adult Medicine - [address] [address] Tori Wells MD medication problems Social History [...] on filedocumented in this encounter Care Teams Multiple Launch Rocket System Crewmember Relationship Specialty Start Date End Date Tori Wells MD PCP - General Internal Medicine 08/11/1708/03 Jagjit Givens MD [address] [place] [address] PCP - General Internal Medicine 03/24/21 09/12/21 Milan Turner [address] [place], [place] PCP - General Internal Medicine 09/13/21 11/23/21 Jagjit Givens MD [address] [place] [address] PCP - General Internal Medicine 11/24/21 09/09/22 [facility], [address] [place] [address] PCP - General Internal Medicine 09/11/22 Jeffrey Whyte MD [address] [place] [address] [place] [address] Specialist Cardiovascular Disease 12/29/21 Mary Anne Valdez NP [address] [place] [address] Cardiology 01/20/23 documented as of this encounter
--- OUTSIDE RECORDS SUMMARY | 2024-11-21 16:37 | XMS_ITS | Encounter Summary ---
Author Organization [facility] Address [address] [place] [address] Care Team Providers Care Window Shade Estimator Name Role Phone Jagjit Givens MD Primary Care Provider [phone] Jeffrey Whyte MD Unavailable [phone] [facility], Pcp Primary Care Provider UnavailMary Anne Black NP Unavailable [phone] Encounter Details Date Type Department Care Team Description 12/24/2021 Telephone Cardio [facility] [address] [facility] [address] [place] [address] Jen Elias PA Social History [...] PER PROTOCOL (07/23/2022) Impressions PVCA - 07/23/2022 [facility] CARDIOLOGY [facility] [address] [place] [address], [place] [address] TEL: ??FAX: Name: Kaiden Rm ? Date [...] tachycardia documented in this encounter Care Teams Window Shade Estimator Relationship Specialty Start Date End Date Jagjit Givens MD [address] [place] [address] PCP - General Internal Medicine 11/24/21 09/09/22 [facility], Pcp [address] [place] [address] [place] [address] PCP - General Internal Medicine 09/11/22 Jeffrey Whyte MD [address] [place] [address] [place] [address] Specialist Cardiovascular Disease 12/29/21 Mary Anne Valdez NP [address] [place] [address] Rodrick Villareal [address] [place] [address] Cardiology 01/20/23 documented as of this encounter
--- OUTSIDE RECORDS SUMMARY | 2024-11-21 16:37 | XMS_ITS | Encounter Summary ---
Author Organization [facility] Address [address] [place] [address] Care Team Providers Care Expanded Duty Dental Assistant Name Role Phone Tori Wells MD Primary Care Provider Unavailable Jagjit Givens MD Primary Care Provider [phone] Milan Turner Primary Care Provider Unavailab latrell Givens Ch MD Primary Care Provider [phone] Jeffrey Whyte MD Unavailable [phone] [facility], Pcp Primary Care Provider UnavailMary Anne Black NP Unavailable [phone] Encounter Details Date Type Department Care Team Description 11/27/2008 SCAN Medical Records [address] [place] [address] Abstract, Provider Social History Tobacco Use Types [...] on filedocumented in this encounter Care Teams Expanded Duty Dental Assistant Relationship Specialty Start Date End Date Tori Wells MD PCP - General Internal Medicine 08/11/1708/03 Jagjit Givens MD [address] [place] [address] PCP - General Internal Medicine 03/24/21 09/12/21 Milan Turner [address] [place] [address] PCP - General Internal Medicine 09/13/21 11/23/21 Jagjit Givens MD [address] [place] [address] PCP - General Internal Medicine 11/24/21 09/09/22 [facility], Pcp [address] [place] [address] [place] [address] PCP - General Internal Medicine 09/11/22 Jeffrey Whyte MD [address] [place] [address] [place] [address] Specialist Cardiovascular Disease 12/29/21 Mary Anne Valdez, JESUS [address] [place] [address] Rodrick Villareal [address] [place] [address] Cardiology 01/20/23 documented as of this encounter
--- OUTSIDE RECORDS SUMMARY | 2024-11-21 16:37 | XMS_ITS | Encounter Summary ---
Author Organization [facility] Address [address] [place] [address] Care Team Providers Care Document Specialist Name Role Phone Tori Wells MD Primary Care Provider Unavailable Jagjit Givens MD Primary Care Provider [phone] Milan Turner Primary Care Provider Unavailab latrell Givens Ch MD Primary Care Provider [phone] Jeffrey Whyte MD Unavailable [phone] [facility], Pcp Primary Care Provider UnavailMary Anne Black NP Unavailable [phone] Encounter Details Date Type Department Care Team Description 10/10/2018 Orders Only Medical Records [address] [place] [address] Abstract, Provider Social History Tobacco Use Types [...] on filedocumented in this encounter Care Teams Document Specialist Relationship Specialty Start Date End Date Tori Wells MD PCP - General Internal Medicine 08/11/1708/03 Jagjit Givens, [address] [place] [address] PCP - General Internal Medicine 03/24/21 09/12/21 Milan Turner [address] [place] [address] PCP - General Internal Medicine 09/13/21 11/23/21 Jagjit Givens MD [address] [place] [address] PCP - General Internal Medicine 11/24/21 09/09/22 [facility], Pcp [address] [facility] [place] [address] PCP - General Internal Medicine 09/11/22 Jeffrey Whyte MD [address] [place] [address] [place] [address] Specialist Cardiovascular Disease 12/29/21 Mary Anne Valdez NP [address] [place] [address] Rodrick Villareal [address] [place] [address] Cardiology 01/20/23 documented as of this encounter
--- OUTSIDE RECORDS SUMMARY | 2024-11-21 16:37 | XMS_ITS | Encounter Summary ---
Author Organization [facility] Address [address] [place] [address] Care Team Providers Care Turret Lathe Tender Name Role Phone Tori Wells MD Primary Care Provider Unavailable Jagjit Givens MD Primary Care Provider [phone] Milan Turner Primary Care Provider Unavailab latrell Givens Ch MD Primary Care Provider [phone] Jeffrey Whyte MD Unavailable [phone] [facility], Pcp Primary Care Provider UnavailMary Anne Black NP Unavailable [phone] Encounter Details Date Type Department Care Team Description 07/21/2007 SCAN Medical Records [address] [place] [address] Abstract, Provider Social History Tobacco Use Types [...] on filedocumented in this encounter Care Teams Turret Lathe Tender Relationship Specialty Start Date End Date Tori Wells MD PCP - General Internal Medicine 08/11/1708/03 Jgajit Givens MD [address] [place] [address] PCP - General Internal Medicine 03/24/21 09/12/21 Milan Turner [address] [place] [address] PCP - General Internal Medicine 09/13/21 11/23/21 Jagjit Givens MD [address] [place] [address] PCP - General Internal Medicine 11/24/21 09/09/22 [facility], Pcp [address] [place] [address] [place] [address] PCP - General Internal Medicine 09/11/22 Jeffrey Whyte MD [address] [place] [address] [place] [address] Specialist Cardiovascular Disease 12/29/21 Mary Anne Valdez, JESUS [address] [place] [address] Rodrick Villareal [address] [place] [address] Cardiology 01/20/23 documented as of this encounter
--- OUTSIDE RECORDS SUMMARY | 2024-11-21 16:37 | XMS_ITS | Encounter Summary ---
Author Organization [facility] Address [address] [place] [address] Care Team Providers Care Stenotype Machine Operator Name Role Phone Tori Wells MD Primary Care Provider Unavailable Jagjit Givens MD Primary Care Provider Milan Turner Primary Care Provider Unavailab Jagjit Givens MD Primary Care Provider [phone] Jeffrey Whyte MD Unavailable [phone] [facility], Pcp Primary Care Provider UnavailMary Anne Black NP Unavailable [phone] Encounter Details Date Type Department Care Team Description 01/27/2011 SCAN Medical Records [address] [place] [address] Martin Helms MD Social History Tobacco Use Types Packs/Day Years Used Date Smoking Tobacco: Never Assessed Sex Assigned at Date Recorded Not on file Job Start Date Occupation Industry Not on file Not on file Not on file documented as of this encounter Plan of Treatment Not on file documented as of this encounter Procedures Procedure Name Priority Date/Time Associated Diagnosis Comments OUTSIDE LAB Routine 01/27/2011 documented in this encounter Results * OUTSIDE LAB (01/27/2011) Provider Abstract LAB documented in this encounter Visit Diagnoses Not on filedocumented in this encounter Care Teams Stenotype Machine Operator Relationship Specialty Start Date End Date Tori Wells MD PCP - General Internal Medicine 08/11/1708/03 Jagjit Givens MD [address] [place] [address] PCP - General Internal Medicine 03/24/21 09/12/21 Milan Turner [address] [place] [address] PCP - General Internal Medicine 09/13/21 11/23/21 Jagjit Givens MD [address] [place] [address] PCP - General Internal Medicine 11/24/21 09/09/22 Pending [facility], [facility] [address] [facility] [place] [address] PCP - General Internal Medicine 09/11/22 Jeffrey Whyte MD [address] [place] [address] [place] [address] Specialist Cardiovascular Disease 12/29/21 Mary Anne Valdez NP [address] [place] [address] Rodrick Villareal [address] [place] [address] Cardiology 01/20/23 documented as of this encounter
--- OUTSIDE RECORDS SUMMARY | 2024-11-21 16:37 | XMS_ITS | Encounter Summary ---
Author Organization [facility] Address [address] [facility] 7t [place] [address] Care Team Providers Care Clerical Clerk Name Role Phone Unavailable Primary Care Provider [...]
--- OUTSIDE RECORDS SUMMARY | 2024-11-21 16:37 | XMS_ITS | Clinical Summary ---
Author Organization [facility] Address [address] [place] [address] 7t [place] [address] Care Team Providers Care Sales Technician Name Role Phone Unavailable Primary Care Provider [...]
--- OUTSIDE RECORDS SUMMARY | 2024-11-21 16:37 | XMS_ITS | Encounter Summary ---
Author Organization [facility] Address [address] [place] [address] Care Team Providers Care Manager Country Name Role Phone Jagjit Givens MD Primary Care Provider [phone] Jeffrey Whyte MD Unavailable [phone] [facility], Pcp Primary Care Provider Mary Anne Gross NP Unavailable [phone] Encounter Details Date Type Department Care Team Description 12/12/2021 SCAN Medical Records [address] [place] [address] Abstract, Provider Social History Tobacco Use Types [...] on filedocumented in this encounter Care Teams Manager Country Relationship Specialty Start Date End Date Jagjit Givens MD [address] [place] [address] PCP - General Internal Medicine 11/24/21 09/09/22 [facility], Pcp [address] [place] [address] Dr [place] [address] [place] [address] PCP - General Internal Medicine 09/11/22 Jeffrey Whyte MD [address] [place] [address] [place] [address] Specialist Cardiovascular Disease 12/29/21 Mary Anne Valdez NP [address] [place] [address] [address] [place] [address] [place] [address] Cardiology 01/20/23 documented as of this encounter
--- OUTSIDE RECORDS SUMMARY | 2024-11-21 16:37 | XMS_ITS | Encounter Summary ---
Author Organization [facility] Address [address] [place] [address] Care Team Providers Care Heel Turner Name Role Phone Milan Turner Primary Care Provider Unavailab latrell Givens Ch MD Primary Care Provider [phone] Jeffrey Whyte MD Unavailable [phone] [facility], [facility] Primary Care Provider UnavailMary Anne Black NP Unavailable [phone] Encounter Details Date Type Department Care Team Description 11/07/2021 Orders Only Adult Medicine - [place] [address] [place], [place] [address] Corie Gray PA-C Social History Tobacco Use Types Packs/Day Years [...] on filedocumented in this encounter Care Teams Heel Turner Relationship Specialty Start Date End Date Milan Turner PCP - General Internal Medicine 09/13/21 11/23/21 Jagjit Givens MD [address] [place], [place] [address] PCP - General Internal Medicine 11/24/21 09/09/22 Community, Pcp [address] [facility] [place] [address] PCP - General Internal Medicine 09/11/22 Jeffrey Whyte MD [address] [place] [address] [place] [address] Specialist Cardiovascular Disease 12/29/21 Mary Anne Valdez NP [address] [place] [address] [place] [address] Cardiology 01/20/23 documented as of this encounter
[2024-12-28 15:38] VITALS: BMI 36.1
--- NOTE | 2024-12-29 09:39 | HO.ANESPROP2 ---
Documented by User: Catherine Ryan NP 12/29/24 09:41 HPI - Anesthesia Eval Consult details Narrative: 64yo M for Upper Endoscopy s/p Upper Endoscopy and Colonoscopy 11/2024 with TIVA ETOH liver disease PMF Active Problems Active Problems: All Active Problems Angular cheilitis (Acute) Alcoholic liver disease (Acute) Pre-op examination (Acute) History of hepatitis C (Acute) Transaminitis (Acute) Rash (Acute) Left shoulder pain (Acute) Elbow pain, left (Acute) Hypercholesterolemia (Acute) Elevated fasting glucose (Acute) Elevated liver enzymes (Acute) Pseudogout (Acute) Alcohol use disorder (Acute) Abnormal heart rhythm (Acute) Depression (Acute) GERD (gastroesophageal reflux disease) (Acute) Constipation (Acute) ETOH abuse (Acute) Screening for prostate cancer (Acute) High blood pressure (Acute) Past Medical History Medical History (System 12/07/24 @ 12:28 by Tosha Pena) Screening for prostate cancer Screening for colon cancer Adult general medical exam Gout Laboratory exam ordered as part of routine general medical examination History of gout High blood pressure Family History Family History Sister Substance abuse Mental health disorder Brother Cardiovascular disorder Mental health disorder Other Alcohol abuse Family history of problems with anesthesia: No Surgical History Surgical History (Updated 12/28/24 @ 15:51 by Swathi Vora RN) History of left shoulder replacement Hx of left knee surgery History of esophagogastroduodenoscopy (EGD) (11/21/24) Hx of colonoscopy (11/21/24) History of Problems with Anesthesia: No Social History Social History (System 12/07/24 @ 12:28 by Tosha Pena) Household Members: Spouse and Significant Other Housing: Apartment Alcohol intake: current Alcohol intake frequency: a few times a week Comment: 0.5-1 pint daily Patient Tobacco Use Status: Former Tobacco user Cigarettes Per Day: 20 Years Smoked: 15 e-Cigarette/Vaping Use: Never Used Substance Use Type: Marijuana Advance Directives: No Advance Directives Information Provided: Yes service: No Current occupational status: disabled Sexual orientation: Unable to collect Gender identity: Unable to collect Cognitive needs: No Hearing needs: No Vision needs: No Meds Allergies Allergy/AdvReac Type Severity Reaction Status Date / Time No Known Drug Allergies Allergy Unknown Unknown Verified 12/07/24 12:28 bee sting Allergy Intermediate Swelling Uncoded 12/07/24 12:28 Home Medications ?Medication ?Instructions ?Recorded ?Confirmed ?Last Taken ?Type stool softener and stimulant 100 PO DAILY 12/16/22 07/19/24 Unknown History Exam Height,Weight and Vital Signs: Height 5 ft 7 in Weight 104.44 kg Assessment and Plan Assessment Anesthesia Assessment: Chart Reviewed Final Anesthetic Review Family History of Problems with Anesthesia: No History of Problems with Anesthesia: No Documented by User: Nahun Holder MD 01/02/25 12:57 PMF Past Medical History Medical History (System 12/07/24 @ 12:28 by Tosha Pena) Screening for prostate cancer Screening for colon cancer Adult general medical exam Gout Laboratory exam ordered as part of routine general medical examination History of gout High blood pressure Family History Family History Sister Substance abuse Mental health disorder Brother Cardiovascular disorder Mental health disorder Other Alcohol abuse Surgical History Surgical History (Updated 12/28/24 @ 15:51 by Swathi Vora RN) History of left shoulder replacement Hx of left knee surgery History of esophagogastroduodenoscopy (EGD) (11/21/24) Hx of colonoscopy (11/21/24) Social History Social History (System 12/07/24 @ 12:28 by Tosha Pena) Household Members: Spouse and Significant Other Housing: Apartment Alcohol intake: current Alcohol intake frequency: a few times a week Comment: 0.5-1 pint daily Patient Tobacco Use Status: Former Tobacco user Cigarettes Per Day: 20 Years Smoked: 15 e-Cigarette/Vaping Use: Never Used Substance Use Type: Marijuana Advance Directives: No Advance Directives Information Provided: Yes service: No Current occupational status: disabled Sexual orientation: Unable to collect Gender identity: Unable to collect Cognitive needs: No Hearing needs: No Vision needs: No Meds Allergies Allergy/AdvReac Type Severity Reaction Status Date / Time No Known Drug Allergies Allergy Unknown Unknown Verified 12/07/24 12:28 bee sting Allergy Intermediate Swelling Uncoded 12/07/24 12:28 Home Medications ?Medication ?Instructions ?Recorded ?Confirmed ?Last Taken ?Type stool softener and stimulant 100 PO DAILY 12/16/22 07/19/24 Unknown History Exam Airway Mallampati Class: III TM Dist: >3cm Neck ROM: Full Assessment and Plan Assessment Anesthesia Assessment: Anesthesia Plan Discussed Final Anesthetic Review NPO: Yes ASA Class: III Final Preanesthetic Review: No Changes in Pt Med Stat, Meds/Allgs Chart Reviewed, Consent Obtained/Reviewed and Anes Risks/Benef Reviewed Patient Risk: Intermediate Procedure Risk: Low Anesthetic Plan Anesthetic Plan: TIVA Disposition: Standard PACU
[2025-01-02 12:47] VITALS: BP 179/89; PULSE 73; RESP 18; TEMP 37.3; O2SAT 96; BMI 34.8
--- NOTE | 2025-01-02 13:09 | MHC.SHP ---
Pre-Procedural Eval Section A - 24 Hr Update-Section A only Date of Service: 01/02/25 Section B - Complete if H&P > 30 days Chief Complaint: Varicose veins of other specified sites Relevant Family History (Specify if Yes): No Relevant Social History: None Present Medications: see Short Stay Collaborative assessment Medical History: Significant History (Gout Laboratory exam ordered as part of routine general medical examination History of gout High blood pressure) History of Previous Operations: Relevant previous surgery/procedure and date(s) ( History of left shoulder replacement Hx of left knee surgery History of esophagogastroduodenoscopy (EGD) (11/21/24) Hx of colonoscopy (11/21/24)) Allergies: Allergies Allergy/AdvReac Type Severity Reaction Status Date / Time No Known Drug Allergies Allergy Unknown Unknown Verified 01/02/25 13:07 bee sting Allergy Intermediate Swelling Uncoded 01/02/25 13:07 Review of Systems Sugical H&P ROS: Negative: Constitution, Cardiovascular, Respiratory, Neurological, Psychiatric, Hem-Onc, Allergic/Immunologic, Gastrointestinal, Genitourinary, Musculoskeletal, Integumentary, Endocrine and Eyes/Ears/Nose/Throat Exam Surgical H&P Exam: Normal: HEENT, Normal: Heart, Normal: Lungs, Normal: Extremities, Normal: Abdomen, Normal: Skin and Normal: Neurological Plan Diagnosis/Plan: Unchanged I have reviewed the history and physical and performed a pertinent physical examination on my patient. No changes have occurred unless specified. Time Spent With Patient Time: Total time managing care of this patient today ____ minutes.
[2025-01-02] MEDS: Lactated Ringers 1,000 ML 100 ML IVCONT (13:16)
--- NOTE | 2025-01-02 14:03 | W.PM.OPN ---
Operative Note Operative Note Date of Service: 01/02/25 Narrative: Procedure Description: EGD Indication: variceal surveillance Anesthesia: MAC FLEXIBLE TRANSORAL UPPER GASTROINTESTINAL ENDOSCOPY UPPER ENDOSCOPY Consent: Indications for the procedure and potential complications of bleeding, perforation, reaction to medications and missed diagnosis were discussed with the patient and informed consent was obtained. Instrument: Olympus GIF H 190 J mid size upper endoscope Monitoring: Vital signs and clinical assessment, continuous EKG monitoring, Pulse oximetry, Carbon Dioxide monitoring and blood pressure monitoring were done throughout the procedure. Procedure: The patient was placed in the left lateral decubitis position and pre-procedure medications were administered and a bite block was placed. The endoscope was inserted into the mouth and advanced under direct vision to the third part of duodenum. A careful inspection was made as the upper endoscope was withdrawn including a retroflexed examination of the proximal stomach; Findings and interventions are described below. Findings: Larynx:normal Esophagus: GE junction at 40 cm, diaphragm hiatus at 40 cm, mild esophagitis, no varices seen Stomach: nodularity and congestion, erythema consistent with portal hypertensive gastropathy. Grade 2 flap valve on retroflexed examination of the cardia. No gastric varices seen. biopsies taken Duodenum: Patchy erythema, bx taken Intervention: Variceal banding Impression/Findings: gastritis duodenitis mild esophagitis PLAN: consider increasing PPI if he has been taking GERD precautions avoid alcohol
[2025-01-02 14:07] VITALS: BP 116/73; PULSE 69; RESP 12; TEMP 36.4; O2SAT 94
[2025-01-02 14:22] VITALS: BP 128/74; PULSE 63; RESP 20; TEMP 36.3; O2SAT 95
== END 2025-01-02 14:42 | disposition home or self-care (01) ==
PROVIDERS: PCP Family Medicine; Visit Provider Internal Medicine Gastroenterology
PROC: 0DJ08ZZ Inspection of Upper Intestinal Tract, Via Natural or Artificial Opening Endoscopic (ICD-10-PCS; CPT 43235; principal; 2025-01-02 15:30)
DX: K20.80 Other esophagitis without bleeding (principal); K21.9 Gastro-esophageal reflux disease without esophagitis; K29.50 Unspecified chronic gastritis without bleeding; K29.80 Duodenitis without bleeding; K44.9 Diaphragmatic hernia without obstruction or gangrene; K59.04 Chronic idiopathic constipation; I10 Essential (primary) hypertension; M10.9 Gout, unspecified; R74.01 Elevation of levels of liver transaminase levels; F10.10 Alcohol abuse, uncomplicated; K70.9 Alcoholic liver disease, unspecified; Z86.19 Personal history of other infectious and parasitic diseases; Z87.891 Personal history of nicotine dependence; Z79.899 Other long term (current) drug therapy
CPT/HCPCS: 43239; 88305; 88313; 88342; J2003; J2704

== ENCOUNTER → 2025-01-02 12:14 | Outpatient (BNV) | payer BC, SELFPAY | PROVIDERS: PCP Family Medicine; Visit Provider Internal Medicine Gastroenterology | DX: K20.90 Esophagitis, unspecified without bleeding (principal); K29.70 Gastritis, unspecified, without bleeding; K29.80 Duodenitis without bleeding | CPT/HCPCS: 43239 ==

== ENCOUNTER 2025-03-14 15:25 | Outpatient (AMB) | payer BC, MEDICAID, SELFPAY ==
--- NOTE | 2025-03-14 15:27 | MHC.OFFVIS ---
Vital Signs 03/14/25 15:29 Height 5 ft 7 in Weight 222 lb BMI 34.8 BP 164/77 H Blood Pressure Location Lt brachial Position Sitting Pulse 66 Pulse Oximetry (%) 97 Oxygen Delivery Method Room Air Intake Visit Reasons: post op egd colo mercer Intake Note: Patient post op EGD results follow up Patient cc: a little of abdominal irritation. Denies any other GI issues for today Relations Specialist Required: No Accompanied by: Self / Same As Patient Allergies No Known Drug Allergies Allergy (Unknown, Verified 03/14/25 15:27) Unknown bee sting Allergy (Intermediate, Uncoded 01/02/25 13:07) Swelling HPI HPI post op egd colo mercer: Details: Assessment & Plan (1) Transaminitis: Comment: BASELINE LABS 03/18/2312/14/23 07:1709:45 WBC 7.2 Hgb 15.6 Hct 44.3 Plt Count 186 Estimated GFR > 60 Total Bilirubin 0.7 AST 118 H ALT 101 H Alkaline Phosphatase 84 05/13/23 08:53 Estimated GFR > 60 Total Bilirubin 0.6 AST 64 H ALT 66 H Alkaline Phosphatase 81 ULTRASOUND OF THE ABDOMEN WITH ELASTOGRAPHY 09/20/23 (F2-F3) 07/20/2411/11/24 11:4606:47 WBC 7.3 Hgb 16.1 Hct 44.6 Plt Count 137 L D Estimated GFR > 60 Ferritin 294 H Total Bilirubin 0.7 GGT 203 H AST 219 H ALT 208 H Alkaline Phosphatase 102 Liver Fibrosis Stage F4 Ammonia 39 Alpha Fetoprotein 4.0 TSH 2.14 LEO Screen NEGATIVE Anti-Mitochondrial Ab NEGATIVE Anti-Smooth Muscle Ab <20 PEth 16:0/18.1 (POPEth) >400 (H) PEth 16:0/18.2 (PLPEth) 391 (H) Hepatitis A IgM Ab Nonreactive Hep Bs Antigen Negative Hep Bs Antibody NONREACTIVE Hep B Core Total Ab Reactive Hep B Core IgM Ab NON-REACTIVE Hepatitis C Ab (EIA) Reactive H Hep C Viral Load <15 NOT DETECTED Hep C Viral Load Log <1.18 NOT DETECTED HIV 1&2 Ab/P24 Ag 4thGn Nonreactive US WITH ELASTOGRAPHY 09/20/23 (F-3) Liver Fibrosis Stage F4 CURRENT LABS ULTRASOUND OF THE ABDOMEN WITH ELASTOGRAPHY 09/20/23 (F2-F3) FINDINGS: PANCREAS: Normal. The visualized pancreatic head and body are normal in appearance. The remainder of the pancreas is obscured from visualization by the overlying bowel gas. LIVER: The liver demonstrates normal contour and increased echogenicity. No focal lesion or intrahepatic biliary duct dilatation. The right lobe measures 18.7 cm in length. The left lobe measures 12.3 cm in length. Portal flow is towards the liver (hepatopetal). Shear wave liver elastography median stiffness is 1.90 m/s (reference: normal median stiffness is 1.3 m/s or less). IQR/median stiffness to assess sampling precision is 0.07 (reference: good quality data set is IQR/median stiffness of 0.15 or less). GALLBLADDER: There are multiple gallstones. The gallbladder is physiologically distended without evidence of sludge, polyps, wall thickening or pericholecystic fluid. COMMON BILE DUCT: Normal in caliber measuring 0.6 cm in diameter. RIGHT KIDNEY: Normal. No hydronephrosis. No renal calculi or focal parenchymal lesions. The kidney measures 10.4 cm in maximum dimension. FREE FLUID: None. US/US abdomen vail w elastography IMPRESSION: 1. There is generalized increase in hepatic echotexture, consistent with fatty infiltration or hepatocellular disease. Please correlate clinically. No focal hepatic mass or intrahepatic biliary dilatation is seen. 2. There is hepatomegaly. 3. Liver elastography: Measurements are suggestive of compensated advanced chronic liver disease but need further test for confirmation. 4. Technically limited ultrasound examination of the pancreas. Code(s): R74.01 - Elevation of levels of liver transaminase levels Category: Medical (2) Alcoholic liver disease: Code(s): K70.9 - Alcoholic liver disease, unspecified Category: Medical (3) History of hepatitis C: Code(s): Z86.19 - Personal history of other infectious and parasitic diseases Category: Medical (4) GERD (gastroesophageal reflux disease): Code(s): K21.9 - Gastro-esophageal reflux disease without esophagitis Category: Medical (5) Constipation: Code(s): K59.00 - Constipation, unspecified Category: Medical (6) Alcohol use disorder: Code(s): F10.90 - Alcohol use, unspecified, uncomplicated Category: Medical (7) Angular cheilitis: Code(s): K13.0 - Diseases of lips Category: Medical Plan Reviewed liver, he has quit drinking alcohol in past as much as 8 years. Trying to quit but has S/o in house that drinks and is in latter stage cirrhosis with ascites. Referred to [facility] program, he admits he has not followed through in past. As always abstinence with stress as really the only way to protect his liver. There is no known family history of liver cancer. Some wt loss ? ETOH sarcopenia. ROV 6 mos, he is ready to reschedule his scope appts. EGD/COLONOSCOPY 11/21/2024 Findings: Larynx:normal Esophagus: GE junction at 40 cm, diaphragm hiatus at 40 cm, mild esophagitis, x 1 varix column noted grade III without red alexandre, with x 2 bands applied with good collapse Stomach: nodularity and congestion, erythema consistent with portal hypertensive gastropathy. Grade 2 flap valve on retroflexed examination of the cardia. No gastric varices seen Duodenum: Normal bulb and descending duodenum, Findings: Terminal Ileum-normal Cecum: x1 sessile polyp 8-9 mm removed with cold snare and x 1 sessile polyp 5-7 mm removed with cold forceps Ascending Colon: normal Transverse Colon - x 2 sessile polyps 6-8 mm removed with cold snare Descending Colon:normal Sigmoid Colon: x1 sessile polyp 5-7 mm removed with cold snare, diverticulosis noted as well Rectum: Retroflexion with small internal hemorrhoids, grade I Congestive colonopathy noted throughout colon Anorectum - normal Impression and Post Procedure Diagnosis: Endoscopy Findings: esophageal varices portal hypertensive gastropathy esophagitis Colonoscopy Findings: diverticulosis colon polyps internal hemorrhoids Plan: Await Pathology results Repeat Colonoscopy in 2-3 years due to polyps or earlier if clinically indicated High fiber diet leaflet avoid straining at stool, epsom salts and sitz bath, anusol supps or cream repeat EGD in about 4-6 weeks - magic mouthwash for 1 week BIOPSY Received: 11/21/24 Diagnosis A. Colon, cecal polyps: Tubular adenomas, two; negative for high-grade dysplasia and carcinoma. B. Colon, transverse, polyps: Tubular adenomas, two; negative for high-grade dysplasia and carcinoma. C. Colon, sigmoid, polyp: Tubular adenoma; negative for high-grade dysplasia and carcinoma. EGD repeat procedure 01/02/2025 Findings: Larynx:normal Esophagus: GE junction at 40 cm, diaphragm hiatus at 40 cm, mild esophagitis, no varices seen Stomach: nodularity and congestion, erythema consistent with portal hypertensive gastropathy. Grade 2 flap valve on retroflexed examination of the cardia. No gastric varices seen. biopsies taken Duodenum: Patchy erythema, bx taken Intervention: Variceal banding Impression/Findings: gastritis duodenitis mild esophagitis PLAN: consider increasing PPI if he has been taking GERD precautions Received: 01/02/25 Diagnosis A. Duodenum, biopsy: Chronic active erosive duodenitis. B. Stomach, biopsy: Antral-type and oxyntic mucosa with moderate chronic, focally active, inflammation; no Helicobacter organisms seen TODAY'S VISIT He is agreeable to the 3 year follow-up based on the number of polyps. The procedure was well tolerated. The results were explained and the patient is agreeable to the follow-up interval as stated. The bowel pattern has returned to normal. Education was provided to tell any 1st degree relatives about their findings to be sure that they are screened by age 45. Educated that they will be put on a recall list when it is time for their repeat scope but should they move out of state or away from the hospital they will need to remember along with their primary to repeat the procedure in a timely fashion to avoid any adverse complications. Admits to still drinking alcohol, as supported by the cath report, but admits that he really needs to stop drinking. I reinforced this letting him know that he seems to be at about stage F4 and if he were to stop alcohol now he could do quite a lot to protect his future liver health. It is also likely that the alcohol is contributing to his erosive gastritis/duodenitis. He is agreeable to doing repeat labs and ultrasound. Return office visit in 3 months. He is reconsidering once again going to [facility] as he has not gone up until now. [facility] Medical History (Updated 03/15/25 @ 14:30 by BRE Salas) Transaminitis Elevated liver enzymes ETOH abuse Screening for prostate cancer Screening for colon cancer Adult general medical exam Gout Laboratory exam ordered as part of routine general medical examination History of gout High blood pressure Surgical History History of left shoulder replacement Hx of left knee surgery History of esophagogastroduodenoscopy (EGD) (11/21/24) Hx of colonoscopy (11/21/24) Family History Sister Substance abuse Mental health disorder Brother Cardiovascular disorder Mental health disorder Other Alcohol abuse Social History Household Members: Spouse and Significant Other Housing: Apartment Alcohol intake: current Alcohol intake frequency: 0-2 drinks per day Comment: 0.5-1 pint daily Patient Tobacco Use Status: Former Tobacco user Cigarettes Per Day: 20 Years Smoked: 15 e-Cigarette/Vaping Use: Never Used Substance Use Type: Marijuana service: No Current occupational status: disabled Sexual orientation: Unable to collect Gender identity: Unable to collect Cognitive needs: No Hearing needs: No Vision needs: No Review of Systems Const Denies fatigue, Denies fever(s), Denies night sweats, Denies poor appetite and Denies weight loss ENT Reports Normal hearing present, Denies dental pain, Denies dysphagia, Denies hearing loss, Denies mouth pain, Denies odynophagia, Denies throat swelling, Denies tongue swelling and Reports other (Dentition adequate) GI Details: Denies abdominal pain, Denies melena, Denies bloating, Denies hematochezia, Denies constipation, Denies GI cramping, Denies dysphagia, Denies excessive flatus, Denies early satiety, Denies heartburn, Denies diarrhea, Denies nausea, Denies odynophagia, Denies vomiting and Denies hematemesis Skin/Breast Denies pruritus, Denies lesions, Denies rash and Denies jaundice Neuro Reports Normal hearing present and Denies Abnormal speech present Endo Denies fatigue Aller/Immun Denies throat swelling and Denies tongue swelling Physical Exam Vital Signs: Last Vital Signs Pulse 66 03/14/25 15:29 BP 164/77 H 03/14/25 15:29 Pulse Ox 97 03/14/25 15:29 Oxygen Delivery Method Room Air 03/14/25 15:29 BMI result Body Mass Index 34.8 Const General: cooperative, no acute distress, well developed and well groomed Nutritional Appearance: well nourished, obese and overweight Orientation/consciousness: oriented to person, oriented to place and oriented to time Limitations: No language barrier, ambulation with cane, ambulation with walker and wheelchair HEENT Head: Yes normocephalic and Yes atraumatic Eyes General: appearance normal, both eyes and all related structures Pupils: Equal, round and reactive pupils present Neck Neck: Yes normal visual inspection and Yes no lymphadenopathy Thyroid: Thyroid normal Resp Effort & Inspection: normal respiratory effort and able to speak in complete sentences Auscultation: clear to auscultation bilaterally Cardio Rate: regular rate Rhythm: regular rhythm Heart sounds: Normal, physiologic split S2 sound present Peripheral pulses: radial pulses present and posterior tibial pulses present GI Inspection: No distended and No Abdominal panniculus present Palpation (GI): Soft to palpation, nontender, no guarding, not rigid, No hepatosplenomegaly present and Hepatosplenomegaly present Percussion: Yes normal to percussion Auscultation: normal bowel sounds Rectal Exam - Male: Yes deferred Skin General skin exam: no rashes or lesions noted, turgor normal, skin not dry, no jaundice, No spider nevi and no striae Rashes: no rashes Nails: normal Neuro General: oriented to person, oriented to place and oriented to time Cranial nerves: Yes Equal, round and reactive pupils present and Yes Normal hearing present Speech: No Abnormal speech present Extrem General: Yes normal to inspection, No clubbing, No cyanosis and No edema Psych Thought process: Normal thought process present and not confabulating Thought content: Normal thought content present Insight: Good insight present (Psych) Judgement: Good judgement present (Psych) Results Reviewed Results Reviewed: EGD/COLONOSCOPY 11/21/2024 Findings: Larynx:normal Esophagus: GE junction at 40 cm, diaphragm hiatus at 40 cm, mild esophagitis, x 1 varix column noted grade III without red alexandre, with x 2 bands applied with good collapse Stomach: nodularity and congestion, erythema consistent with portal hypertensive gastropathy. Grade 2 flap valve on retroflexed examination of the cardia. No gastric varices seen Duodenum: Normal bulb and descending duodenum, Findings: Terminal Ileum-normal Cecum: x1 sessile polyp 8-9 mm removed with cold snare and x 1 sessile polyp 5-7 mm removed with cold forceps Ascending Colon: normal Transverse Colon - x 2 sessile polyps 6-8 mm removed with cold snare Descending Colon:normal Sigmoid Colon: x1 sessile polyp 5-7 mm removed with cold snare, diverticulosis noted as well Rectum: Retroflexion with small internal hemorrhoids, grade I Congestive colonopathy noted throughout colon Anorectum - normal Impression and Post Procedure Diagnosis: Endoscopy Findings: esophageal varices portal hypertensive gastropathy esophagitis Colonoscopy Findings: diverticulosis colon polyps internal hemorrhoids Plan: Await Pathology results Repeat Colonoscopy in 2-3 years due to polyps or earlier if clinically indicated High fiber diet leaflet avoid straining at stool, epsom salts and sitz bath, anusol supps or cream repeat EGD in about 4-6 weeks - magic mouthwash for 1 week BIOPSY Received: 11/21/24 Diagnosis A. Colon, cecal polyps: Tubular adenomas, two; negative for high-grade dysplasia and carcinoma. B. Colon, transverse, polyps: Tubular adenomas, two; negative for high-grade dysplasia and carcinoma. C. Colon, sigmoid, polyp: Tubular adenoma; negative for high-grade dysplasia and carcinoma. EGD repeat procedure 01/02/2025 Findings: Larynx:normal Esophagus: GE junction at 40 cm, diaphragm hiatus at 40 cm, mild esophagitis, no varices seen Stomach: nodularity and congestion, erythema consistent with portal hypertensive gastropathy. Grade 2 flap valve on retroflexed examination of the cardia. No gastric varices seen. biopsies taken Duodenum: Patchy erythema, bx taken Intervention: Variceal banding Impression/Findings: gastritis duodenitis mild esophagitis PLAN: consider increasing PPI if he has been taking GERD precautions Received: 01/02/25 Diagnosis A. Duodenum, biopsy: Chronic active erosive duodenitis. B. Stomach, biopsy: Antral-type and oxyntic mucosa with moderate chronic, focally active, inflammation; no Helicobacter organisms seen Assessment & Plan Assessment & Plan (1) Duodenitis determined by biopsy: Comment: Active erosive duodenitis on 2024 EGD Code(s): K29.80 - Duodenitis without bleeding Category: Medical (2) Esophageal varices determined by endoscopy: Comment: Status post banding 2024 EGD Code(s): I85.00 - Esophageal varices without bleeding Category: Medical (3) Alcoholic liver disease: Comment: 08/2024: He still drinks vodka a pint 4-5 week. I let him know that complete sobriety is likely the only way to see if his liver as he likely has an element of MARTIN on top of alcoholic liver disease to contend with. He has a history of hepatitis-C but this was successfully treated in the remote past. BASELINE LABS 03/18/2312/14/23 07:1709:45 WBC 7.2 Hgb 15.6 Hct 44.3 Plt Count 186 Estimated GFR > 60 Total Bilirubin 0.7 AST 118 H ALT 101 H Alkaline Phosphatase 84 05/13/23 08:53 Estimated GFR > 60 Total Bilirubin 0.6 AST 64 H ALT 66 H Alkaline Phosphatase 81 ULTRASOUND OF THE ABDOMEN WITH ELASTOGRAPHY 09/20/23 (F2-F3) 07/20/2411/11/24 11:4606:47 WBC 7.3 Hgb 16.1 Hct 44.6 Plt Count 137 L D Estimated GFR > 60 Ferritin 294 H Total Bilirubin 0.7 GGT 203 H AST 219 H ALT 208 H Alkaline Phosphatase 102 Liver Fibrosis Stage F4 Ammonia 39 Alpha Fetoprotein 4.0 TSH 2.14 LEO Screen NEGATIVE Anti-Mitochondrial Ab NEGATIVE Anti-Smooth Muscle Ab <20 PEth 16:0/18.1 (POPEth) >400 (H) PEth 16:0/18.2 (PLPEth) 391 (H) Hepatitis A IgM Ab Nonreactive Hep Bs Antigen Negative Hep Bs Antibody NONREACTIVE Hep B Core Total Ab Reactive Hep B Core IgM Ab NON-REACTIVE Hepatitis C Ab (EIA) Reactive H Hep C Viral Load <15 NOT DETECTED Hep C Viral Load Log <1.18 NOT DETECTED HIV 1&2 Ab/P24 Ag 4thGn Nonreactive US WITH ELASTOGRAPHY 09/20/23 (F-3) Liver Fibrosis Stage F4 CURRENT LABS ULTRASOUND OF THE ABDOMEN WITH ELASTOGRAPHY 09/20/23 (F2-F3) FINDINGS: PANCREAS: Normal. The visualized pancreatic head and body are normal in appearance. The remainder of the pancreas is obscured from visualization by the overlying bowel gas. LIVER: The liver demonstrates normal contour and increased echogenicity. No focal lesion or intrahepatic biliary duct dilatation. The right lobe measures 18.7 cm in length. The left lobe measures 12.3 cm in length. Portal flow is towards the liver (hepatopetal). Shear wave liver elastography median stiffness is 1.90 m/s (reference: normal median stiffness is 1.3 m/s or less). IQR/median stiffness to assess sampling precision is 0.07 (reference: good quality data set is IQR/median stiffness of 0.15 or less). GALLBLADDER: There are multiple gallstones. The gallbladder is physiologically distended without evidence of sludge, polyps, wall thickening or pericholecystic fluid. COMMON BILE DUCT: Normal in caliber measuring 0.6 cm in diameter. RIGHT KIDNEY: Normal. No hydronephrosis. No renal calculi or focal parenchymal lesions. The kidney measures 10.4 cm in maximum dimension. FREE FLUID: None. US/US abdomen vail w elastography IMPRESSION: 1. There is generalized increase in hepatic echotexture, consistent with fatty infiltration or hepatocellular disease. Please correlate clinically. No focal hepatic mass or intrahepatic biliary dilatation is seen. 2. There is hepatomegaly. 3. Liver elastography: Measurements are suggestive of compensated advanced chronic liver disease but need further test for confirmation. 4. Technically limited ultrasound examination of the pancreas. Code(s): K70.9 - Alcoholic liver disease, unspecified Category: Medical (4) GERD (gastroesophageal reflux disease): Code(s): K21.9 - Gastro-esophageal reflux disease without esophagitis Category: Medical (5) Tubular adenoma of colon: Comment: 2024 scope= 3 TA is repeat in 3 years Code(s): D12.6 - Benign neoplasm of colon, unspecified Category: Medical Plan He is agreeable to the 3 year follow-up based on the number of polyps. The procedure was well tolerated. The results were explained and the patient is agreeable to the follow-up interval as stated. The bowel pattern has returned to normal. Education was provided to tell any 1st degree relatives about their findings to be sure that they are screened by age 45. Educated that they will be put on a recall list when it is time for their repeat scope but should they move out of state or away from the hospital they will need to remember along with their primary to repeat the procedure in a timely fashion to avoid any adverse complications. Admits to still drinking alcohol, as supported by the cath report, but admits that he really needs to stop drinking. I reinforced this letting him know that he seems to be at about stage F4 and if he were to stop alcohol now he could do quite a lot to protect his future liver health. It is also likely that the alcohol is contributing to his erosive gastritis/duodenitis. He is agreeable to doing repeat labs and ultrasound. Return office visit in 3 months. He is reconsidering once again going to [facility] as he has not gone up until now. Orders: Orders Comprehensive Met. Panel 03/14/25 K70.9 - Alcoholic liver disease, unspecified Complete Blood Count Auto Diff 03/14/25 K70.9 - Alcoholic liver disease, unspecified Liver Fibrosis Pnl 03/14/25 K70.9 - Alcoholic liver disease, unspecified US abdomen complete 03/14/25 K70.9 - Alcoholic liver disease, unspecified Medications: New omeprazole 40 mg PO DAILY 30 caps 6RF 30 days I85.00 - Esophageal varices without bleeding, K29.80 - Duodenitis without bleeding Discontinued Magic Mouthwash Diphen/Lido/Antacid 1:1:1 Lidocaine Viscous 2 % 80mL; diphenhydramine 12.5 mg/5 mL 80mL; aluminum-mag hydrox-simeth [id number]/5mL 80mL Discontinued Reason: Doctor's Order 240 mL PO TID-QID PRN 240 mL 0RF chest or throat discomfort omeprazole Discontinued Reason: Doctor's Order 20 mg PO DAILY 90 days 90 caps 0RF Coding Level of Care Code Est Pt Level 4 (50900) Diagnoses Duodenitis determined by biopsy K29.80 Esophageal varices determined by endoscopy I85.00 Alcoholic liver disease K70.9 GERD (gastroesophageal reflux disease) K21.9 Tubular adenoma of colon D12.6 Time Spent (min) 38
[2025-03-14 15:29] VITALS: BP 164/77; PULSE 66; O2SAT 97; BMI 34.8
--- OUTSIDE RECORDS SUMMARY | 2025-03-14 15:39 | XMS_ITS | Clinical Summary ---
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 Liver disease 09/29/2024 Ascending aorta dilatation (CMS/HCC V24) 022 Overview (09/29/2024): Last Assessment & Plan: Patient had recent echocardiogram in January 2022 that showed ascending aorta dilatation 4.5 cm and transverse aorta dilatation 3.8 cm. We will continue to monitor with periodic echocardiograms. NSVT (nonsustained ventricul ar tachycardia) (CMS/HCC V24, CMS/HCC V28) 05/06/2022 Overview (09/29/2024): Last Assessment & Plan: [...] stopping drinking. Alcohol abuse with alcohol-induced disorder ([facility] V24) 11/28/2021 Benign prostatic hyperplasia with urinary freque ncy 09/20/2018 Chronic gout of right ankle 09/20/2018 Obesity (BMI 30-39.9) 09/20/2018 Hyperlipidemia 10/12/2017 Chronic hepatitis C without hepatic coma ([facility] V24, [facility] V28) 08/20/2017 Sleeping difficulty 08/20/2017 Immunizations Name Administration Dates [...] abuse Liver disease DX:Liver disease Drug abuse ([facility] V24, [facility] V28) DX:Drug abuse ([facility]) Family History Medical History Relation Name Comments [...] BMP Blood Test 05/22/2023 05/22/2022 COVID-19 Vaccine ( - 2023-2 5 season) 2024 01/25/2022, 01/18/2021, 12/28/2020 Falls Risk Assessment 2024 Influenza Vaccine (Season Ended) 2025 09/20/2018 Cholesterol Screening (Lipid Panel) 11/06/2026 11/06/2021 DTaP,Tdap,and Td Vaccines (2 - Td or Tdap) 09/20/2028 09/20/2018 RSV Immunization Adult Patients (1 - 1-dose 75+ series) 2034 Hepatitis [...] age to complete this topic Meningococcal B Vaccine Aged Out No l onger eligible based on patient's age to complete [...] Results * Annual BMP Blood Test (05/22/2022) [facility] Annual BMP Blood Test abstracted [facility] Provider HEALTH MAINTENANCE Final Result * (ABNORMAL) Lipid panel (11/06/2021) [facility] LDL/HDL Ratio 5(A) 0 - 4 Triglycerides 150 0 - 150 mg/dL Cholesterol 122(A) 0 - 100 mg/dL HDL 43 >=40 mg/dL LDL Cholesterol 122(A) 0 - 100 mg/dL Blood Venous blood specimen / Unknown [facility] Provider LAB BLOOD ORDERABLES Michelle l Result * Hepatitis C Screening (09/20/2018) [facility] Hepatitis C Screening abstracted [facility] Provider HEALTH MAINTENANCE Final Result * Colonoscopy (12/03/2011) [facility] Colonoscopy no interpretation , abstracted Anatomical Region Laterality Modality Other [facility] Provider HEALTH MAINTENANCE Final Result from Last 3 Months or Most Recently Relevant to Health Maintenance Care Teams Metal Model Maker Relationship Specialty Start Date End Date Gisell Givens MD PCP - General Internal Medicine 03/24/21
--- OUTSIDE RECORDS SUMMARY | 2025-03-14 15:39 | XMS_ITS | Encounter Summary ---
Author Organization [facility] Address [address] [place] [address] Care Team Providers Care Wire Winding Machine Tender Name Role Phone Tori Wells MD Primary Care Provider Unavailable Jagjit Givens MD Primary Care Provider [phone] Milan Turner Primary Care Provider Unavailab latrell Givens Ch MD Primary Care Provider [phone] Jeffrey Whyte MD Unavailable [facility], Pcp Primary Care Provider UnavailMary Anne Black NP Unavailable [phone] Reason for Visit * Reason Onset Date Comments REFERRAL 11/25/2017 Encounter Details Date Type Department Care Team Description 11/25/2017 Telephone Adult Medicine - [address] [address] Tori Wells MD REFERRAL Social History Tobacco Use Types Packs/Day Years Used Date Smoking Tobacco: Former Smokeless Tobacco: Never Comments:quit 18 years ago Alcohol Use Standard Drinks/Week Comments No 0 (1 standard drink = 0.6 oz pure alcohol) will sometimes drink a few beers Sex Assigned at Date Recorded Not on file Job Start Date Occupation Industry Not on file Not on file Not on file documented as of this encounter Miscellaneous Notes * Telephone Encounter - Katelynn Shah - 11/25/2017 4:47 PM EDT Unable to contact patient regarding hypertension referral. Will take off of list. documented in this encounter Plan of Treatment Not on file documented as of this encounter Visit Diagnoses Not on filedocumented in this encounter Care Teams Wire Winding Machine Tender Relationship Specialty Start Date End Date Wilton-Tori Harmon MD PCP - General Internal Medicine 08/11/1708/03 Jagjit Givens MD [address] [place] [address], [place] PCP - General Internal Medicine 03/24/21 09/12/21 Milan Turner [address], [place] PCP - General Internal Medicine 09/13/21 11/23/21 Jagjit Givens MD [address], [place] PCP - General Internal Medicine 11/24/21 09/09/22 [facility], Pcp [address] [place] [address] [place] [address] PCP - General Internal Medicine 09/11/22 Jeffrey Whyte MD [address] [place] [address] [place] [address] Specialist Cardiovascular Disease 12/29/21 Mary Anne Valdez NP [address] [place] [address] Rodrick Villareal [address] [place] [id number] Cardiology 01/20/23 documented as of this encounter
--- OUTSIDE RECORDS SUMMARY | 2025-03-14 15:39 | XMS_ITS | Clinical Summary ---
Author Organization [employer] Address [address] [place] [address] [address] [place] [address] Care Team Providers Care Heel Former Name Role Phone Unavailable Primary Care Provider [...] - 2023-2 5 season) 2024 Influenza Vaccine (Season Ended) 2025 RSV Patients and Pa tients Aged 60 [...]
--- OUTSIDE RECORDS SUMMARY | 2025-03-14 15:39 | XMS_ITS | Clinical Summary ---
Author Organization [facility] Address [address] [place] [address] Care Team Providers Care Cylinder Block Mechanic Name Role Phone Gisell Givens MD Primary [...] Date Difficulty sleeping 08/20/2017 12/11/19 22 Immunizations Immunization Administration Dates Next Due Influenza, MDCK, PF, [...] Due Date Last Done Comments Pneumococcal Vaccine: 50+ Ye ars (1 of 2 - PCV) 1978 Colorectal Cancer Screening: Annual FOBT 2008 Colorectal Cancer Screening: Colonoscopy 2008 Colorectal Cancer Screening: Sigmoidoscopy 2008 Influenza Vaccine (Season Ended) 2025 09/20/19 19 Hepatitis B Vaccine Aged Out No longe r eligible based on patient's age to complete this topic Insurance [facility] Provider [facility] Provider [facility] Care Teams Cylinder Block Mechanic Relationship Specialty Start Date End Date Gisell Givens MD PCP - General Internal Medicine 12/11/21
== END 2025-03-14 15:58 | disposition home or self-care (01) ==
PROVIDERS: PCP Family Medicine; Visit Provider Nurse Practitioner
DX: K29.80 Duodenitis without bleeding (principal); I85.00 Esophageal varices without bleeding; K70.9 Alcoholic liver disease, unspecified; K21.9 Gastro-esophageal reflux disease without esophagitis; D12.6 Benign neoplasm of colon, unspecified
CPT/HCPCS: 99214

== ENCOUNTER 2025-05-23 08:26 | Outpatient (REF) | payer BC, MEDICAID, SELFPAY ==
--- NOTE | ~2025-05-23 | US_ITS ---
EXAMINATION: US ABDOMEN HISTORY: K70.9 - Alcoholic liver disease, unspecified TECHNIQUE: Real-time grayscale ultrasound imaging of the abdomen was performed and images were reviewed. COMPARISON: Comparison is made with the prior examination dated 09/20/2023. FINDINGS: Liver: The right lobe of the liver measures 20.6 cm in size. The left lobe of the liver measures 11.9 cm in size. The liver demonstrates increased echotexture, consistent with steatosis. No focal mass or intrahepatic biliary ductal dilatation is identified. There is normal hepatopedal flow in the portal vein. Gallbladder and biliary tree: Multiple shadowing calculi are again noted in the gallbladder. There is no wall thickening or pericholecystic fluid. There is no sonographic Krishnamurthy sign. The common bile duct measures 8-9 mm diameter. Kidneys: The right kidney measures 10.2 cm in length. The left kidney measures 11.2 cm in length and demonstrates a 6 x 5 x 9 mm cyst and a 5 x 5 x 8 mm cyst in the interpolar region. The kidneys are otherwise unremarkable, without evidence of solid masses, hydronephrosis, or calculi. Pancreas: The pancreas is obscured by bowel gas. Spleen: The spleen is enlarged, measuring 13.8 cm in length. Abdominal aorta and inferior vena cava: The visualized portions of the abdominal aorta and inferior vena cava are normal in caliber. There is no free fluid in the abdomen. US/US abdomen complete IMPRESSION: 1. Hepatosplenomegaly and hepatic steatosis. 2. Cholelithiasis. 3. Mild dilatation of the common bile duct when compared to the prior study. If there is clinical concern for choledocholithiasis, MRCP could be performed. Electronically signed by: Mark Davis MD 05/23/2025 09:31 AM EDT
--- OUTSIDE RECORDS SUMMARY | 2025-05-23 09:43 | XMS_ITS ---
Author Name [facility] Organization Unknown Care Team Organization Name Specialty Phone Email Start Date End Da te [facility] RAJ BOLIVAR Primary Care 07/21/2022 05/01/2024
--- OUTSIDE RECORDS SUMMARY | 2025-05-23 09:43 | XMS_ITS | Clinical Summary ---
Author Organization [facility] Address [address] [place] [address] Care Team Providers Care Television Repair Teacher Name Role Phone Gisell Givens MD [...] Cancer Screening: Sigmoidoscopy 2008 Influenza Vaccine (#1) 2025 09/20/2018 Hepatitis B Vaccine Aged Out No longe r eligible based on patient's age to complete this topic Insurance [facility] Provider [facility] [place] [address] Provider [facility] Care Teams Television Repair Teacher Relationship Specialty Start Date End Date Gisell Givens MD PCP - General Internal Medicine 12/11/21
--- OUTSIDE RECORDS SUMMARY | 2025-05-23 09:43 | XMS_ITS | Clinical Summary ---
Author Organization [facility] Address [address] [place] [address] Care Team Providers Care Hair Specialist Name Role Phone Gisell Givens MD Primary [...] stopping drinking. Alcohol abuse with alcohol-induced disorder ([facility] V24) 11/28/2021 Benign prostatic hyperplasia with urinary freque ncy 09/20/2018 Chronic gout of right ankle 09/20/2018 Obesity (BMI 30-39.9) 09/20/2018 Hyperlipidemia 10/12/2017 Chronic hepatitis C without hepatic coma ([facility] V24, [facility] V28) 08/20/2017 Sleeping difficulty 08/20/2017 Immunizations [...] abuse Liver disease DX:Liver disease Drug abuse ([facility] V24, [facility] V28) DX:Drug abuse ([facility]) Family History Medical History Relation Name [...] Years (1 of 2 - PCV) 1978 Zoster Vaccines (1 of 2) 2009 Hepatitis B Vaccines (1 of 3 - Risk 3-dose series) 2019 Abdominal Aortic Aneurysm (AAA) Screen 08/22/2022 Colorectal Cancer Screening: Colonoscopy 08/22/2022 12/03/2011 Social Influencers of Health Screening 08/22/2022 Hypertension/CHF/CAD Annual BMP Blood Test 05/22/2023 05/22/2022 Falls Risk Assessment 2024 Depression Screening 09/13/2024 COVID-19 Vaccine (4 - 2024-2 6 season) 2025 01/25/2022, 01/18/2021, 12/28/2020 Influenza Vaccine (#1) 2025 09/20/2018 Cholesterol Screening (Lipid Panel) 11/06/2026 [...] Results * Annual BMP Blood Test (05/22/2022) [facility] Annual BMP Blood Test abstracted [facility] Provider HEALTH MAINTENANCE Final Result * (ABNORMAL) Lipid panel (11/06/2021) [facility] LDL/HDL Ratio 5(A) 0 - 4 Triglycerides 150 0 - 150 mg/dL Cholesterol 122(A) 0 - 100 mg/dL HDL 43 >=40 mg/dL LDL Cholesterol 122(A) 0 - 100 mg/dL Blood Venous blood specimen / Unknown Result [facility] Provider LAB BLOOD ORDERABLES Michelle l Result * Hepatitis C Screening (09/20/2018) [facility] Hepatitis C Screening abstracted [facility] Provider HEALTH MAINTENANCE Final Result * Colonoscopy (12/03/2011) [facility] Colonoscopy no interpretation , abstracted Anatomical Region Laterality Modality Other [facility] Provider HEALTH MAINTENANCE Final Result from Last 3 Months or Most Recently Relevant to Health Maintenance Care Teams Hair Specialist Relationship Specialty Start Date End Date iGsell Givens MD PCP - General Internal Medicine 03/24/21
--- OUTSIDE RECORDS SUMMARY | 2025-05-23 09:44 | XMS_ITS | Clinical Summary ---
Author Organization [employer] Address [address] [place] [address] [address] [place] [address] Care Team Providers Care Scale Agent Name Role Phone Unavailable Primary Care Provider [...] COVID-19 Vaccine ( - 2023-2 5 season) 2025 Influenza Vaccine (#1) 2025 RSV Patients and Pa tients Aged [...]
--- OUTSIDE RECORDS SUMMARY | 2025-05-23 09:44 | XMS_ITS | Encounter Summary ---
Author Organization [employer] [facility] Address [address] [place] [address] Care Team Providers Care Ripsaw Matcher Name Role Phone Unavailable Primary Care Provider Unavailabl e Encounter Details Date Type Department Care Team (Latest Contact Info) Description 03/18/2021 Abstract C CONVERSIONS Dental, Provider, DDS Social [...]
--- OUTSIDE RECORDS SUMMARY | 2025-05-23 09:44 | XMS_ITS | Encounter Summary ---
Author Organization [facility] Address [address] [place] [address] Care Team Providers Care Paint Crew Supervisor Name Role Phone Unavailable Primary Care Provider [...]
== END 2025-05-23 08:27 | disposition home or self-care (01) ==
LOC: HO.US 08:26
PROVIDERS: PCP Family Medicine; Visit Provider Nurse Practitioner
DX: K70.9 Alcoholic liver disease, unspecified (principal)
CPT/HCPCS: 76700

== ENCOUNTER → 2025-05-23 08:28 | Outpatient (BNV) | payer BC, MEDICAID, SELFPAY | PROVIDERS: PCP Family Medicine; Visit Provider Radiology Diagnostic Radiology | DX: K70.9 Alcoholic liver disease, unspecified (principal) | CPT/HCPCS: 76700 ==

== ENCOUNTER 2025-05-31 11:38 | Outpatient (AMB) | payer BC, MEDICAID, SELFPAY ==
--- NOTE | 2025-05-31 11:39 | MHC.PC.OV ---
Vital Signs 05/31/25 11:44 Height 5 ft 7 in Weight 229 lb 6 oz BMI 35.9 BP 161/78 H Blood Pressure Location Rt brachial Position Sitting Respiration 16 Pulse 83 Pulse Source Pulse Oximeter Temp 97.7 F Temp Source Oral Pulse Oximetry (%) 97 Oxygen Delivery Method Room Air Intake Visit Reasons: Reschedule f/u HTN, chronic condi Intake Note: patient her for follow up on HTN and chronic conditions Hydroelectric Plant Electrician Required: No Allergies No Known Drug Allergies Allergy (Unknown, Verified 05/31/25 11:42) Unknown bee sting Allergy (Intermediate, Uncoded 01/02/25 13:07) Swelling Medication List - Last Reconciled 05/31/25 by Terrance Hollis MD allopurinol 100 mg PO BID 90 days amlodipine 10 mg PO DAILY 90 days docusate sodium 200 mg PO DAILY lisinopril 20 mg PO DAILY 90 days metoprolol succinate ER 25 mg PO DAILY 90 days mirtazapine 15 mg PO BEDTIME 30 days naproxen 500 mg PO BID PRN 30 days omeprazole 40 mg PO DAILY 30 days trazodone 150 mg (1.5 x 100 mg) PO BEDTIME 30 days Tobacco use date assessed: 05/31/25 Fall risk assessment: No Falls in past year Last assessed Fall Risk: 05/31/25 Dental Screening Dental Screen Date: 05/31/25 Did you have a dental visit in the last 12 months?: Yes Did you have a dental problem in the last 6 months where you did not have access to dental care?: No Was dental information given to patient?: Patient has dentist HPI Reschedule f/u HTN, chronic condi HPI Details 64 y/o male presents to f/u HTN. BP today 161/78, 83p. He is on lisinopril 20mg, metoprolol 25mg daily, amlodipine 10mg daily. Has complaints of a lump at radial aspect of R forearm. He notes this is sometimes painful and tender. [facility] Medical History (Updated 05/31/25 @ 11:55 by Dimas Long) Screening for prostate cancer Transaminitis Elevated liver enzymes ETOH abuse Screening for colon cancer Adult general medical exam Gout Laboratory exam ordered as part of routine general medical examination History of gout High blood pressure Surgical History History of left shoulder replacement Hx of left knee surgery History of esophagogastroduodenoscopy (EGD) (11/21/24) Hx of colonoscopy (11/21/24) Family History Sister Substance abuse Mental health disorder Brother Cardiovascular disorder Mental health disorder Other Alcohol abuse Social History Household Members: Spouse and Significant Other Housing: Apartment Alcohol intake: current Alcohol intake frequency: 0-2 drinks per day Comment: 0.5-1 pint daily Patient Tobacco Use Status: Former Tobacco user Cigarettes Per Day: 20 Years Smoked: 15 e-Cigarette/Vaping Use: Never Used Substance Use Type: Marijuana service: No Current occupational status: disabled Sexual orientation: Unable to collect Gender identity: Unable to collect Cognitive needs: No Hearing needs: No Vision needs: No Questionnaire PHQ-9 Over the last 2 weeks, how often have you been bothered by any of the following problems? 8. Moving or speaking so slowly that other people could have noticed. Or the opposite - being so fidgety or restless that you have been moving around a lot more than usual: not at all Source: Developed by Drs. Mark Brink, Deborah Block, Gordy Valencia and colleagues, with an educational soledad from [employer]. Thrive Questionnaire Date Thrive assessed: 10/11/24 I am a: Patient What is your living situation today?: I have a steady place to live Within the past 12 months, did the food you bought not last and you didn't have the money to get more?: Never true Within the past 12 months, did you worry whether your food would run out before you got money to buy more?: Never true Do you have trouble paying for medicines?: No Do you have trouble getting transportation to medical appointments?: No Do you have trouble paying your heating and electricity bill?: No Do you have trouble taking care of your child, family member or friend?: No Do you have trouble with day-to-day activities such as bathing, preparing meals, shopping, managing finances, etc.?: No Are you currently unemployed and looking for a job?: I choose not to answer this question Are you interested in more education?: I choose not to answer this question Please select the resources that you would like help with: None Currently or been in a relationship where the following occur: I choose not to answer THRIVE Score: 0 NUNU-7 AMB Questionnaire NUNU-7 Date NUNU - 7 assessed: 12/07/23 Source: Developed by Drs. Mark Brink, Deborah Block, Gordy Valencia and colleagues, with an educational soledad from [employer]. Review of Systems Const Denies chills, Denies fatigue, Denies fever(s), Denies headache(s) and Denies weakness ENT Denies dizziness and Denies headache(s) Card Denies dyspnea Resp Denies cough, Denies dyspnea, Denies wheezing and Denies other (shortness of breath) Musc Denies numbness and Denies tingling Neuro Denies dizziness, Denies headache(s), Denies numbness, Denies tingling and Denies weakness Psych Denies anxiety and Denies depression Endo Denies fatigue Aller/Immun Denies wheezing Physical exam (Primary Care) Vital Signs: Last Vital Signs Temp 97.7 F 05/31/25 11:44 Pulse 83 05/31/25 11:44 Resp 16 05/31/25 11:44 BP 161/78 H 05/31/25 11:44 Pulse Ox 97 05/31/25 11:44 Oxygen Delivery Method Room Air 05/31/25 11:44 BMI result Body Mass Index 35.9 Tobacco/Smoking Status: Tobacco use Status Tobacco use date assessed 05/31/25 05/31/25 11:47 Patient Tobacco Use Status Former Tobacco user 05/31/25 11:47 e-Cigarette/Vaping Use Never Used 05/31/25 11:47 Thrive Assessment: Date of Thrive Assessment Date Thrive assessed 10/11/24 05/31/25 11:47 Currently or been in a relationship where the following occur: I choose not to answer Const General: well developed; No acute distress Nutritional Appearance: well nourished Orientation/consciousness: patient oriented x3 HENMT Head: Yes normocephalic and Yes atraumatic Eyes General: appearance normal, both eyes and all related structures Pupils: Equal, round and reactive pupils present EOM: EOMs intact bilaterally Resp Effort & Inspection: normal respiratory effort Neuro General: patient oriented x3 and gait normal Cranial nerves: Yes Equal, round and reactive pupils present Psych Affect: normal affect Coding Level of Care Code Est Pt Level 4 (71831) Diagnoses High blood pressure I10 Lump of skin R22.9 Left shoulder pain M25.512 Assessment & Plan Assessment & Plan (1) High blood pressure: Code(s): I10 - Essential (primary) hypertension Category: Medical Plan: Blood pressure is too high. He is taking amlodipine, lisinopril and metoprolol as prescribed Will switch lisinopril to lisinopril-hydrochlorothiazide combo pill 20/12.5 mg daily Continue amlodipine and metoprolol Will follow-up in a couple of months (2) Lump of skin: Code(s): R22.9 - Localized swelling, mass and lump, unspecified Category: Medical Plan: Lump of skin at radial aspect of right forearm He notes that it is tender and not very mobile. Does have other lipomas however so will get ultrasound to rule out lipoma verses mother mass (3) Left shoulder pain: Code(s): M25.512 - Pain in left shoulder Category: Medical Plan: Ongoing left shoulder pain Start physical therapy Will follow-up at next visit. If worsening or not improving, will consider imaging and referral to Ortho Orders: Orders Comprehensive [place]. Panel Fast Today Z00.00 - Encounter for general adult medical examination without abnormal findings Microalbumin, Random (w Creat) Today I10 - Essential (primary) hypertension Lipid Panel Today Z00.00 - Encounter for general adult medical examination without abnormal findings UA CC w/rflx Micro + Cult Today Z00.00 - Encounter for general adult medical examination without abnormal findings Prostate Specific Antigen Scr Today Z12.5 - Encounter for screening for malignant neoplasm of prostate US Extremity Nonvas Limited RT Today R22.9 - Localized swelling, mass and lump, unspecified PT Evaluation and Treatment Today M25.512 - Pain in left shoulder Complete Blood Count Auto Diff Today Z00.00 - Encounter for general adult medical examination without abnormal findings TSH reflex Free T4 Today Z00.00 - Encounter for general adult medical examination without abnormal findings Medications: New lisinopril-hydrochlorothiazide 20-12.5 mg 1 tab PO DAILY 90 tabs 3RF 90 days Discontinued lisinopril Discontinued Reason: Doctor's Order 20 mg PO DAILY 90 days 90 tabs 2RF
[2025-05-31 11:44] VITALS: BP 161/78; PULSE 83; RESP 16; TEMP 36.5; O2SAT 97; BMI 35.9
--- OUTSIDE RECORDS SUMMARY | 2025-05-31 14:02 | XMS_ITS | Clinical Summary ---
Author Organization [employer] Address [address] [place] [address] [address] [place] [address] Care Team Providers Care Director Of Strategic Initiatives Name Role Phone Unavailable Primary Care Provider [...]
--- OUTSIDE RECORDS SUMMARY | 2025-05-31 14:02 | XMS_ITS | Clinical Summary ---
Author Organization [facility] Address [address] [place] [address] Care Team Providers Care Resident Care Manager Rn Name Role Phone Gisell Givens MD Primary [...] stopping drinking. Alcohol abuse with alcohol-induced disorder ([facility] V24) 11/28/2021 Benign prostatic hyperplasia with urinary freque ncy 09/20/2018 Chronic gout of right ankle 09/20/2018 Obesity (BMI 30-39.9) 09/20/2018 Hyperlipidemia 10/12/2017 Chronic hepatitis C without hepatic coma ([facility] V24, [facility] V28) 08/20/2017 Sleeping difficulty 08/20/2017 Immunizations Name [...] abuse Liver disease DX:Liver disease Drug abuse ([facility] V24, [facility] V28) DX:Drug abuse ([facility]) Family History Medical History Relation Name Comments [...] Results * Annual BMP Blood Test (05/22/2022) [facility] Annual BMP Blood Test abstracted [facility] [place] MAINTENANCE Final Result * (ABNORMAL) Lipid panel (11/06/2021) [facility] LDL/HDL Ratio 5(A) 0 - 4 Triglycerides 150 0 - 150 mg/dL Cholesterol 122(A) 0 - 100 mg/dL HDL 43 >=40 mg/dL LDL Cholesterol 122(A) 0 - 100 mg/dL Blood Venous blood specimen / Unknown Result [facility] Provider LAB BLOOD ORDERABLES Michelle l Result * Hepatitis C Screening (09/20/2018) [facility] Hepatitis C Screening abstracted [facility] [place]ALTH MAINTENANCE Final Result * Colonoscopy (12/03/2011) [facility] Colonoscopy no interpretation , abstracted Anatomical Region Laterality Modality Other [facility] [place]ALTH MAINTENANCE Final Result from Last 3 Months or Most Recently Relevant to Health Maintenance Care Teams Resident Care Manager Rn Relationship Specialty Start Date End Date Gisell Givens MD PCP - General Internal Medicine 03/24/21
--- OUTSIDE RECORDS SUMMARY | 2025-05-31 14:02 | XMS_ITS | Clinical Summary ---
Author Organization [facility] Address [address] [place] [id number] Care Team Providers Care Supervisor Parking Lot Name Role Phone Gisell Givens MD Primary [...] patient's age to complete this topic Insurance [facility] Provider [facility] [place] [address] Provider [facility] Care Teams Supervisor Parking Lot Relationship Specialty Start Date End Date Gisell Givens MD PCP - General Internal Medicine 12/11/21
--- OUTSIDE RECORDS SUMMARY | 2025-05-31 14:02 | XMS_ITS | Encounter Summary ---
Author Organization [employer] [facility] Address [address] [facility] [address] [place] [address] Care Team Providers Care Seed Sales Manager Name Role Phone Unavailable Primary Care [...]
--- OUTSIDE RECORDS SUMMARY | 2025-05-31 14:03 | XMS_ITS | Encounter Summary ---
Author Organization [employer] [facility] Address [address] [facility] [address] [place] [address] Care Team Providers Care Asphalt Spreader Operator Name Role Phone Unavailable Primary Care Provider [...]
== END 2025-05-31 12:03 | disposition home or self-care (01) ==
LOC: HO.HMCFM 11:38
PROVIDERS: PCP Family Medicine; Visit Provider Family Medicine
DX: I10 Essential (primary) hypertension (principal); R22.9 Localized swelling, mass and lump, unspecified; M25.512 Pain in left shoulder

== ENCOUNTER 2025-07-18 13:08 | Outpatient (AMB) | payer BC, MEDICAID, SELFPAY ==
[2025-07-18 13:19] VITALS: BP 142/80; PULSE 82; O2SAT 96; BMI 36.0
--- NOTE | 2025-07-18 13:19 | A.OFFVIS_ITS ---
Vital Signs 07/18/25 13:19 Height 5 ft 7 in Weight 230 lb BMI 36.0 BP 142/80 H Pulse 82 Pulse Oximetry (%) 96 Intake Visit Reasons: MAT Intake Allergies No Known Drug Allergies Allergy (Unknown, Verified 07/18/25 13:20) Unknown bee sting Allergy (Intermediate, Uncoded 07/18/25 13:20) Swelling HPI Comments Details: A 64-year-old male presents for a MAT intake r/t AUD. Reports drinking a pint of vodka per day, it's been 24 hours since last alcohol consumption. In the past, has stopped drinking without entering a detox program, denies history of of seizures. The patient states I'm interested in starting medication to help reduce my cravings. [facility] Medical History (Updated 05/31/25 @ 11:55 by Dimas Long) Screening for prostate cancer Transaminitis Elevated liver enzymes ETOH abuse Screening for colon cancer Adult general medical exam Gout Laboratory exam ordered as part of routine general medical examination History of gout High blood pressure Surgical History History of left shoulder replacement Hx of left knee surgery History of esophagogastroduodenoscopy (EGD) (11/21/24) Hx of colonoscopy (11/21/24) Family History Sister Substance abuse Mental health disorder Brother Cardiovascular disorder Mental health disorder Other Alcohol abuse Social History Household Members: Spouse and Significant Other Housing: Apartment Alcohol intake: current Alcohol intake frequency: 0-2 drinks per day Comment: 0.5-1 pint daily Patient Tobacco Use Status: Former Tobacco user Cigarettes Per Day: 20 Years Smoked: 15 e-Cigarette/Vaping Use: Never Used Substance Use Type: Marijuana service: No Current occupational status: disabled Sexual orientation: Unable to collect Gender identity: Unable to collect Cognitive needs: No Hearing needs: No Vision needs: No Review of Systems Const All systems reviewed & are unremarkable except as noted in HPI and below Physical Exam Vital Signs: Last Vital Signs Pulse 82 07/18/25 13:19 BP 142/80 H 07/18/25 13:19 Pulse Ox 96 07/18/25 13:19 BMI result Body Mass Index 36.0 Const General: cooperative Assessment & Plan Assessment & Plan (1) Alcohol use disorder: Code(s): F10.90 - Alcohol use, unspecified, uncomplicated Category: Medical Plan The plan of care is to start on acamprosate 333 mg, 2 tablets 3 times per day, thiamine 100 mg, folic acid 1 mg, daily. Education provided re: acamprosate, folic acid, and thiamine including purpose, general medication information, and side effects. Discussed risk reduction activities to minimize alcohol consumption. Encouraged to follow up with an inpatient detox program and/or monitor for symptoms of withdrawals. Go to nearest emergency department, if symptoms of withdrawals develop. marble installation helper provided additional education, and community resources. Follow-up 1 month or sooner if needed. Medications: New acamprosate Take 2 tablets 3 times per day 666 mg (2 x 333 mg) PO TID 180 tabs 1RF 30 days folic acid Take 1 tablet daily 1 mg PO DAILY 30 tabs 3RF 30 days thiamine mononitrate (vit B1) Take 1 tablet daily 100 mg PO DAILY 30 tabs 3RF 30 days Patient Instructions: - Start on acamprosate, thiamine, and folic acid as prescribed. - Engage in risk reduction activities to minimize alcohol consumption. - Consider an inpatient detox program and/or monitor for symptoms of withdrawals, and go to nearest emergency department if symptoms develop. - Utilize community resources. - Follow-up in 1 month or sooner if needed. - Call with questions, concerns, or to report side effects/new onset of symptoms to [facility]. - The patient verbalized understanding and agreed with plan of care. Coding Level of Care Code New Pt Level 3 (54329) Diagnoses Alcohol use disorder F10.90 MAT Intake Nursing Intake Reason for visit: MAT intake Are you currently using?: Yes What are you taking?: Alcohol When was your last use?: yesterday How much?: 1 pint + daily What is your source of income?: disability- Mcfp soon What is your current relationship status?: significant other 37 years Current PCP: Terrance Hollis Date of last visit: 05/31/25 Referral Source: PCP/Self Substance Abuse History Substance Abuse History (includes route, frequency and quantity): Heroin, Fentanyl, Buprenorphine/naloxone (approximately one strip off street per week ), Methadone (MAT years ago), Oxycodone product, Cocaine, Benzodiazepines, PCP, Alcohol (Daily use, Vodk- 1 pint + daily no history of withdrawal seizures), Amphetamines, Marijuana (1-2 5 mg gummies daily) and Tobacco (quit 30 years ago) Age of first use: Reports using THC, Alcohol and Buprenorphine in past several years. Social History Domestic Violence concerns: none Children: one son, 3 grandchildren Do you have a support system?: yes- family, AA contacts still call Current mode of transportation?: self Where are you currently residing?: [address] [facility] Drug Use Have you ever shared needles?: No Have you ever belonged to a needle exchange program?: No Do you buy needles at a pharmacy?: No Have you ever overdosed?: Yes Number of lifetime overdoses: 4 Have you ever been hospitalized for an overdose?: No Was Naloxone administered?: No Details: Reports 4 overdoses that he woke up from himself Recovery History Have you had any periods of recovery?: Yes What is your longest time in recovery?: 8 years , 1.5 years When was the last time you were in recovery?: 8 years ago Have you ever had inpatient treatment for your substance abuse disorder?: Yes Have you been in an inpatient detoxification program?: Yes Have you been in an inpatient Rehab/Senior Living house?: Yes Have you been in an outpatient Methadone Maintenance program?: Yes Have you been in an outpatient Suboxone Maintenance program?: No Have you been in an AA/NA support program?: Yes Have you had a Recovery Support Heritage Consultant?: No Have you had Peer Support?: No Details: May reconnect with AA contacts, they still reach out to him Behavioral Health History Do you have a current provider? If so, who?: no diagnosis: maybe a little depression History of inpatient psychiatric hospitalization? If so, how many? Most Recent? Where?: no Medical Conditions Endocarditis?: No Skin Infection: No Seizure related to withdrawal or overdose: No Head or brain injury: No Hepatitis A (if yes, have you been treated?): No Hepatitis B (if yes, have you been treated?): No Hepatitis C (if yes, have you been treated?): Yes (treated in 2013) HIV (if yes, have you been treated?): No TB (if yes, have you been treated?): No Details: Stage 4 liver disease Legal History Currently on parole or probation: No Court mandated programs: No Pending court cases: No DCF involvement: No
--- OUTSIDE RECORDS SUMMARY | 2025-07-18 15:55 | XMS_ITS | Clinical Summary ---
Author Organization [facility] Address [address] [place] [address] Care Team Providers Care Turpentine Distiller Name Role Phone Gisell Givens MD Primary [...] age to complete this topic Insurance [facility] Provider [facility] [place] [address] Provider [facility] Care Teams Turpentine Distiller Relationship Specialty Start Date End Date Gisell Givens MD PCP - General Internal Medicine 12/11/21
--- OUTSIDE RECORDS SUMMARY | 2025-07-18 15:55 | XMS_ITS | Encounter Summary ---
Author Organization [employer] [facility] Address [address] [facility] [address] [place] [address] Care Team Providers Care Metal Rolling Mill Operator Name Role Phone Unavailable Primary Care [...]
--- OUTSIDE RECORDS SUMMARY | 2025-07-18 15:55 | XMS_ITS | Encounter Summary ---
Author Organization [employer] [facility] Address [address] [facility] [address] [place] [address] Care Team Providers Care Car Wash Supervisor Name Role Phone Unavailable Primary Care [...]
--- OUTSIDE RECORDS SUMMARY | 2025-07-18 15:55 | XMS_ITS | Clinical Summary ---
Author Organization [employer] Address [address] [place] [address] [address] [place] [address] Care Team Providers Care Clinical Dietician Name Role Phone Unavailable Primary Care Provider [...]
--- OUTSIDE RECORDS SUMMARY | 2025-07-18 15:55 | XMS_ITS | Clinical Summary ---
Author Organization [facility] Address [address] [place] [address] Care Team Providers Care Regional Safety Manager Name Role Phone Gisell Givens MD Primary [...] stopping drinking. Alcohol abuse with alcohol-induced disorder ([facility] V24) 11/28/2021 Benign prostatic hyperplasia with urinary freque ncy 09/20/2018 Chronic gout of right ankle 09/20/2018 Obesity (BMI 30-39.9) 09/20/2018 Hyperlipidemia 10/12/2017 Chronic hepatitis C without hepatic coma ([facility] V24, [facility] V28) 08/20/2017 Sleeping difficulty 08/20/2017 Immunizations Immunization Administration Dates Next Due Influenza Quadravalent, MDCK [...] abuse Liver disease DX:Liver disease Drug abuse ([facility] V24, [facility] V28) DX:Drug abuse ([facility]) Family History Medical History Relation Name Comments [...] of 3 - Risk 3-dose series) 2019 Colorectal Cancer Screening: Colonoscopy 12/02/2021 12/03/2011 Abdominal Aortic Aneurysm (AAA) Screen 08/22/2022 Social Influencers of Health Screening 08/22/2022 [...] Results * Annual BMP Blood Test (05/22/2022) [facility] Annual BMP Blood Test abstracted [facility] Provider HEALTH MAINTENANCE Final Result * (ABNORMAL) Lipid panel (11/06/2021) [facility] LDL/HDL Ratio 5(A) 0 - 4 Triglycerides 150 0 - 150 mg/dL Cholesterol 122(A) 0 - 100 mg/dL HDL 43 >=40 mg/dL LDL Cholesterol 122(A) 0 - 100 mg/dL Blood Venous blood specimen / Unknown Result [facility] Provider LAB BLOOD ORDERABLES Michelle l Result * Hepatitis C Screening (09/20/2018) [facility] Hepatitis C Screening abstracted [facility] Provider HEALTH MAINTENANCE Final Result * Colonoscopy (12/03/2011) [facility] Colonoscopy no interpretation , abstracted Anatomical Region Laterality Modality Other [facility] Provider HEALTH MAINTENANCE Final Result from Last 3 Months or Most Recently Relevant to Health Maintenance Care Teams Regional Safety Manager Relationship Specialty Start Date End Date Gisell Givens MD PCP - General Internal Medicine 03/24/21
== END 2025-07-18 14:06 | disposition home or self-care (01) ==
LOC: HO.HCC 13:09
PROVIDERS: PCP Family Medicine; Visit Provider Clinical Nurse Specialist Psychiatric/Mental Health
DX: F10.90 Alcohol use, unspecified, uncomplicated (principal)
CPT/HCPCS: 99203